=== PATIENT | female | born 1945 | race Caucasian/White ===

== ENCOUNTER → 2018-09-29 | Outpatient (CLI) | payer MEDICARE ==
[2014-11-23 10:45] VITALS: BP 150/80
[~2018-09-29] MED LIST: GARL1CAP3 PO; GLIM2TAB2 PO; HYDR200T71 PO; LEVO175T5 PO; LOSA100T14 PO; MAGN100T3 PO; OMEG500C PO
--- NOTE | 2018-09-29 11:55 | KCIC ---
MR thoracic spine without contrast September 29, 2018 INDICATION: Dorsal bulge. Mid to lower back pain asymmetric to the left for several months. COMPARISON: None available TECHNIQUE: Multiplanar, multisequence MR imaging of the thoracic spine is performed without intravenous contrast. FINDINGS: There is mild exaggerated kyphosis of the thoracic spine. Schmorl's nodes are identified involving the endplates of T5, T6, T7, T8, T9, T10 and T11. There is mild anterior wedging of T6 with less than 15 percent height loss. Minimal anterior wedging of T8. 15 percent height loss. No significant height loss at additional levels. Moderate multilevel disc height loss is identified. No acute fracture is present. Marrow signal intensity is normal. At T6-T7, there is a central disc protrusion resulting in mild spinal canal stenosis. No significant neuroforaminal stenosis. At T7-T8 there is a right central disc protrusion resulting in mild spinal canal stenosis. At T8-T9 there is a central disc protrusion resulting in mild spinal canal stenosis. At T11-T12 there is a right central disc extrusion resulting in mild spinal canal stenosis and mild right neuroforaminal stenosis. There is mild to moderate multilevel facet arthropathy. Descending thoracic aorta is normal in caliber. Thoracic esophagus appears normal. No significant pulmonary mass. Visualized portions of the upper abdomen appear normal. IMPRESSION: Exaggerated kyphosis of the thoracic spine with moderate multilevel degenerative disc disease, as described in detail above. Electronically signed by: Rachael Powers MD (09/29/2018 11:51 AM) [facility]-KCIC1
== END | disposition home or self-care (01) ==
LOC: KCIC MRI 10:48
PROVIDERS: ATTEND Nurse Practitioner Family
DX: M51.34 Other intervertebral disc degeneration, thoracic region (principal); M40.204 Unspecified kyphosis, thoracic region; M48.04 Spinal stenosis, thoracic region
CPT/HCPCS: 72146

== ENCOUNTER 2019-08-07 09:38 | Inpatient (IN) | payer MEDICARE ==
[~2019-08-07] VITALS: Ht 167.6 cm; Wt 86.4 kg
[~2019-08-07 09:38] MED LIST changes: +ALEN70TA6 PO; +AMLO5TAB10 PO; +ASPI-630 PO; +CHOL10003 PO; +CYAN-25 PO; +FERR325T14 PO; +FURO20TA3 PO; -GLIM2TAB2 PO; +GLIM2TAB3 PO; +INSU200I4 SQ; +LEVO150T5 PO; +LINA5TAB PO; +PANT20TA2 PO; +PRAV40TA2 PO
[2019-08-07 11:11] VITALS: BP 129/82
[2019-08-07 12:27] LABS: BASO % 1 % (0-3); EOS # 0.1 x10^3/uL (0.0-0.7); EOS % 2 % (0-3); HEMATOCRIT 31.1 % (36.0-47.0); HEMOGLOBIN 10.1 g/dL (12.0-15.5); LYMPH # 0.8 x10^3/uL (1.0-4.8); LYMPH % 19 % (24-48); MEAN CORPUSCULAR HEMOGLOBIN 32 pg (25-35); MEAN CORPUSCULAR HGB CONC 32 g/dL (31-37); MEAN CORPUSCULAR VOLUME 97 fL (79-100); MONO # 0.3 x10^3/uL (0.0-1.1); MONO % 8 % (0-9); NEUT % 72 % (31-73); PLATELET COUNT 76 x10^3/uL (140-400); WHITE BLOOD COUNT 4.2 x10^3/uL (4.0-11.0)
[2019-08-07] MEDS ORDERED: OXYB10TA2 PO (12:31)
[2019-08-07 12:34] LABS: PROTHROMBIN TIME PATIENT 14.6 SEC (11.7-14.0)
[2019-08-07 12:46] LABS: ALBUMIN 2.8 g/dL (3.4-5.0); ALBUMIN/GLOBULIN RATIO 0.7 (1.0-1.7); CALCIUM 8.3 mg/dL (8.5-10.1); GFR 24.4; POTASSIUM 3.8 mmol/L (3.5-5.1); TOTAL BILIRUBIN 0.5 mg/dL (0.2-1.0); TOTAL PROTEIN 6.7 g/dL (6.4-8.2)
--- NOTE | 2019-08-07 12:54 | PDOC1 ---
History and Physical Date of Admission Date of Admission DATE: 08/07/19 TIME: 12:51 Source Source: Chart review, Patient History of Present Illness History of Present Illness Ms. Chavez, is a 74 yo female transferred from [place] today, had been admitted secondary to cough, shortness of breath, and dizziness. Longstanding complaints, but has worsened, Follows with Dr. Somers of cardiology, diastolic CHF and CAD, . Patient has been treated on an outpatient basis with steroids, breathing treatments, and antibiotics, without any significant improvement. C ontinue to have dyspnea with minimal exertion. This week, hasn't been feeling well and has been increasingly weak. No known fevers, but was febrile upon arrival. Yesterday, had episode of aching in her left chest. Radiated down and around to her abdomen. [place] slightly nauseated and was dizzy. No diaphoresis or palpitations. No LE edema. Past Medical History Past Medical History CHF, coronary stent placement for coronary artery disease, hypercholesterolemia, hypertension, COPD, asthma, GERD, abdominal surgery, appendectomy, nausea, hysterectomy, incontinence, hypothyroidism, history of smoking exposure for 15 years, chronic anemia, insomnia. Cardiovascular: CAD, CHF, HTN, Hyperlipidemia GI: GERD Musculoskeletal: Osteoarthritis Renal/: UTI Endocrine: Diabetes, Hypothyroidism Past Surgical History Past Surgical History: Appendectomy, Cholecystectomy, Tonsillectomy, Hysterectomy, Other Family History Family History FAMILY HISTORY: Father was a smoker and had CHF and father also had a history of alcoholism. Mother had cerebral hemorrhage as well as a brother who has of unknown causes. Family History: No Significant Social History ALCOHOL: none Drugs: None Current Medications Current Medications Active Scripts Active Reported Oxybutynin Chloride Er (Oxybutynin Chloride) 10 Mg Tab.er.24 10 Mg PO DAILY Pravastatin Sodium 40 Mg Tablet 1 Tab PO QHS Protonix (Pantoprazole Sodium) 20 Mg Tablet.dr 40 Mg PO DAILY Tradjenta (Linagliptin) 5 Mg Tablet 5 Mg PO DAILY Levothyroxine Sodium 150 Mcg Tablet 150 Mcg PO DAILYAC Tresiba Flextouch U-200 (Insulin Degludec) 200 Unit/1 Ml Insuln.pen 20 Unit SQ HS Furosemide 20 Mg Tablet 1 Tab PO DAILY Vitamin D3 (Cholecalciferol (Vitamin D3)) 1,000 Unit Tablet 3,000 Unit PO DAILY Aspirin 81 Mg Tab.chew 1 Tab PO DAILY Alendronate Sodium 70 Mg Tablet 1 Tab PO WEEKLY Losartan Potassium 100 Mg Tablet 100 Mg PO DAILY Allergies Allergies: Coded Allergies: Sulfa (Sulfonamide Antibiotics) (Verified Allergy, Intermediate, rash, 05/21/19) niacin (Verified Allergy, Intermediate, 05/21/19) ROS General: No: Chills, Night Sweats, Fatigue, Malaise, Appetite, Other PSYCHOLOGICAL ROS: YES: Sleep disturbances; No: Anxiety, Behavioral Disorder, Concentration difficultie, Decreased libido, Depression, Disorientation, Hallucinations, Hostility, Irritablity, Suicidal ideation, Other Respiratory: YES: Shortness of breath, SOB with excertion; No: Cough, Hemoptysis, Orthopnea, Pleuritic Pain, Sputum Changes, Stridor, Tachypnea, Wheezing, Other Cardiovascular: yes Chest Pain; No Palpitations, No Orthopnea, No Paroxysmal Noc. Dyspnea, No Edema, No Lt Headedness, No Other Gastrointestinal: No Nausea, No Vomiting, No Abdominal Pain, No Diarrhea, No Constipation, No Melena, No Hematochezia, No Other Genitourinary: No Dysuria, No Frequency, No Incontinence, No Hematuria, No Retention, No Discharge, No Urgency, No Pain, No Flank Pain, No Other, No , No , No , No , No , No , No Musculoskeletal: Yes Joint Stiffness; No Gait Disturbance, No Joint Pain, No Joint Swelling, No Muscle Pain, No Muscular Weakness, No Pain In:, No Swelling In:, No Other Neurological: No Behavorial Changes, No Bowel/Bladder ControlChng, No Confusion, No Dizziness, No Gait Disturbance, No Headaches, No Impaired Coord/balance, No Memory Loss, No Numbness/Tingling, No Seizures, No Speech Problems, No Tremors, No Visual Changes, No Weakness, No Other Skin: No Dry Skin, No Eczema, No Hair Changes, No Lumps, No Mole Changes, No Mottling, No Nail Changes, No Pruritus, No Rash, No Skin Lesion Changes, No Other, No Acne Physical Exam General: Alert, Cooperative HEENT: PERRLA Lungs: Clear to auscultation Heart: S1S2, no thrills Abdomen: Normal bowel sounds, Soft Rectal Exam: not examined Extremities: No clubbing, No edema Skin: No rashes Neuro: Normal speech Vitals Vitals Vital Signs Date Time Temp Pulse Resp B/P (MAP) Pulse Ox O2 Delivery O2 Flow Rate FiO2 08/07/19 11:11 98.4 84 18 129/82 (98) 98 Room Air 98.4 Labs Labs Laboratory Tests Test 08/07/19 11:28 08/07/19 12:00 Glucose (Fingerstick) 180 mg/dL (70-99) White Blood Count 4.2 x10^3/uL (4.0-11.0) Red Blood Count 3.20 x10^6/uL (3.50-5.40) Hemoglobin 10.1 g/dL (12.0-15.5) Hematocrit 31.1 % (36.0-47.0) Mean Corpuscular Volume 97 fL (79-100) Mean Corpuscular Hemoglobin 32 pg (25-35) Mean Corpuscular Hemoglobin Concent 32 g/dL (31-37) Red Cell Distribution Width 16.0 % (11.5-14.5) Platelet Count 76 x10^3/uL (140-400) Neutrophils (%) (Auto) 72 % (31-73) Lymphocytes (%) (Auto) 19 % (24-48) Monocytes (%) (Auto) 8 % (0-9) Eosinophils (%) (Auto) 2 % (0-3) Basophils (%) (Auto) 1 % (0-3) Neutrophils # (Auto) 3.0 x10^3/uL (1.8-7.7) Lymphocytes # (Auto) 0.8 x10^3/uL (1.0-4.8) Monocytes # (Auto) 0.3 x10^3/uL (0.0-1.1) Eosinophils # (Auto) 0.1 x10^3/uL (0.0-0.7) Basophils # (Auto) 0.0 x10^3/uL (0.0-0.2) Prothrombin Time 14.6 SEC (11.7-14.0) Prothromb Time International Ratio 1.2 (0.8-1.1) Sodium Level 140 mmol/L (136-145) Potassium Level 3.8 mmol/L (3.5-5.1) Chloride Level 103 mmol/L (98-107) Carbon Dioxide Level 27 mmol/L (21-32) Anion Gap 10 (6-14) Blood Urea Nitrogen 46 mg/dL (7-20) Creatinine 2.0 mg/dL (0.6-1.0) Estimated GFR (Cockcroft-Gault) 24.4 BUN/Creatinine Ratio 23 (6-20) Glucose Level 186 mg/dL (70-99) Calcium Level 8.3 mg/dL (8.5-10.1) Total Bilirubin 0.5 mg/dL (0.2-1.0) Aspartate Amino Transf (AST/SGOT) 36 U/L (15-37) Alanine Aminotransferase (ALT/SGPT) 15 U/L (14-59) Alkaline Phosphatase 85 U/L (46-116) Total Protein 6.7 g/dL (6.4-8.2) Albumin 2.8 g/dL (3.4-5.0) Albumin/Globulin Ratio 0.7 (1.0-1.7) Laboratory Tests Test 08/07/19 11:28 08/07/19 12:00 Glucose (Fingerstick) 180 mg/dL (70-99) White Blood Count 4.2 x10^3/uL (4.0-11.0) Red Blood Count 3.20 x10^6/uL (3.50-5.40) Hemoglobin 10.1 g/dL (12.0-15.5) Hematocrit 31.1 % (36.0-47.0) Mean Corpuscular Volume 97 fL (79-100) Mean Corpuscular Hemoglobin 32 pg (25-35) Mean Corpuscular Hemoglobin Concent 32 g/dL (31-37) Red Cell Distribution Width 16.0 % (11.5-14.5) Platelet Count 76 x10^3/uL (140-400) Neutrophils (%) (Auto) 72 % (31-73) Lymphocytes (%) (Auto) 19 % (24-48) Monocytes (%) (Auto) 8 % (0-9) Eosinophils (%) (Auto) 2 % (0-3) Basophils (%) (Auto) 1 % (0-3) Neutrophils # (Auto) 3.0 x10^3/uL (1.8-7.7) Lymphocytes # (Auto) 0.8 x10^3/uL (1.0-4.8) Monocytes # (Auto) 0.3 x10^3/uL (0.0-1.1) Eosinophils # (Auto) 0.1 x10^3/uL (0.0-0.7) Basophils # (Auto) 0.0 x10^3/uL (0.0-0.2) Prothrombin Time 14.6 SEC (11.7-14.0) Prothromb Time International Ratio 1.2 (0.8-1.1) Sodium Level 140 mmol/L (136-145) Potassium Level 3.8 mmol/L (3.5-5.1) Chloride Level 103 mmol/L (98-107) Carbon Dioxide Level 27 mmol/L (21-32) Anion Gap 10 (6-14) Blood Urea Nitrogen 46 mg/dL (7-20) Creatinine 2.0 mg/dL (0.6-1.0) Estimated GFR (Cockcroft-Gault) 24.4 BUN/Creatinine Ratio 23 (6-20) Glucose Level 186 mg/dL (70-99) Calcium Level 8.3 mg/dL (8.5-10.1) Total Bilirubin 0.5 mg/dL (0.2-1.0) Aspartate Amino Transf (AST/SGOT) 36 U/L (15-37) Alanine Aminotransferase (ALT/SGPT) 15 U/L (14-59) Alkaline Phosphatase 85 U/L (46-116) Total Protein 6.7 g/dL (6.4-8.2) Albumin 2.8 g/dL (3.4-5.0) Albumin/Globulin Ratio 0.7 (1.0-1.7) VTE Prophylaxis Ordered VTE Prophylaxis Devices: No VTE Pharmacological Prophylaxi: Yes Assessment/Plan Assessment/Plan UTI, has been on vanc/zosyn at [facility], try to taper COPD chest pain and dyspnea, anginal, CV eval, LHC today SENTHIL BAILEY MD Aug 07, 2019 12:54
[2019-08-07] MEDS ORDERED: IV NORMAL SALINE 1000ML BAG 1,000 ML IV ONE (13:00)
[2019-08-07] MEDS ORDERED: PIP/TAZO PER PHARMACY MC PRN (13:15)
[2019-08-07] MEDS ORDERED: IPRATRPIUM/ALBUTEROL 0.5/2.5MG 3 ML NEBU. NEB ONE (13:30)
--- NOTE | 2019-08-07 14:25 | PDOC2 ---
CONSULT Date of Consult Date of Consult DATE: 08/07/19 TIME: 14:12 Reason for Consult Reason for Consult: Renal Insufficiency, came from [place], scheduled for [facility] Source Source: Chart review, Patient History of Present Illness Reason for Visit: Pt is a 74 yo C female transferred from [place] today, had been admitted secondary to cough, shortness of breath, and dizziness. Longstanding complaints, but has worsened, Follows with Dr. Somers of cardiology, diastolic CHF and CAD, . Patient has been treated on an outpatient basis with steroids, breathing treatments, and antibiotics, without any significant improvement. C continue to have dyspnea with minimal exertion. This week, hasn't been feeling well and has been increasingly weak. No known fevers, but was febrile upon arrival. Yesterday, had episode of aching in her left chest. Radiated down and around to her abdomen. [place] slightly nauseated and was dizzy. No diaphoresis or palpitations. No LE edema. States she has recurrent Kidney infection, most recent approx 1 week back- treated with Abx by Dr. San . Still c/o mild dysuria. Good uop . Denies N SAID use/ States not aware of CKD Past Medical History Cardiovascular: CAD, CHF, HTN, Hyperlipidemia GI: GERD Musculoskeletal: Osteoarthritis Renal/: UTI Endocrine: Diabetes, Hypothyroidism Past Surgical History Past Surgical History: Appendectomy, Cholecystectomy, Tonsillectomy, Hysterectomy, Other Family History Family History: No Significant Social History ALCOHOL: none Drugs: None Lives: with Family Current Medications Current Medications Current Medications Aspirin (Children'S Aspirin) 81 mg DAILY PO ; Start 08/08/19 at 09:00 Vitamin D (Vitamin D3) 3,000 unit DAILY PO ; Start 08/08/19 at 09:00 Furosemide (Lasix) 20 mg DAILY PO ; Start 08/08/19 at 09:00 Levothyroxine Sodium (Synthroid) 150 mcg DAILYAC PO ; Start 08/08/19 at 07:30 Linagliptin (Tradjenta) 5 mg DAILY PO ; Start 08/08/19 at 09:00 Non-Formulary Medication (Alendronate Sodium ) 1 tab WEEKLY PO ; Start 08/14/19 at 09:00; Status UNV Insulin Glargine (Lantus Syringe) 20 unit QHS SQ ; Start 08/07/19 at 21:00 Losartan Potassium (Cozaar) 100 mg DAILY PO ; Start 08/08/19 at 09:00 Oxybutynin Chloride (Ditropan) 5 mg BID PO ; Start 08/07/19 at 21:00 Pantoprazole Sodium (Protonix) 40 mg DAILYAC PO ; Start 08/08/19 at 07:30 Atorvastatin Calcium (Lipitor) 10 mg QHS PO ; Start 08/07/19 at 21:00 Sodium Chloride 1,000 ml @ 100 mls/hr 1X ONCE IV Last administered on 08/07/19at 13:21; Start 08/07/19 at 13:00; Stop 08/07/19 at 22:59 Piperacillin Sod/ Tazobactam Sod (Zosyn Per Pharmacy) 1 each PRN DAILY PRN MC SEE COMMENTS; Start 08/07/19 at 13:15 Enoxaparin Sodium (Lovenox Per Pharmacy Prophylaxis Dosing) 1 each PRN DAILY PRN MC SEE COMMENTS; Start 08/07/19 at 13:15 Guaifenesin (Robitussin Dm) 10 ml PRN Q6HRS PRN PO COUGH; Start 08/07/19 at 13:30 Throat Lozenges (Cepacol Sore Throat Lozenge) 1 sylvia PRN Q2HRS PRN PO SORE THROAT; Start 08/07/19 at 13:30 Albuterol/ Ipratropium (Duoneb) 3 ml 1X ONCE NEB Last administered on 08/07/19at 13:30; Start 08/07/19 at 13:30; Stop 08/07/19 at 13:32; Status DC Albuterol/ Ipratropium (Duoneb) 3 ml RTQID NEB ; Start 08/07/19 at 16:00 Influenza Virus Vaccine Quadrival (Afluria Quad 2019-20 (3yr Up) Syringe) 0.5 ml ONCE ONCE VAX IM ; Start 08/07/19 at 21:00; Stop 08/07/19 at 21:01 Enoxaparin Sodium (Lovenox 30mg Syringe) 30 mg Q24H SQ ; Start 08/07/19 at 14:00 Piperacillin Sod/ Tazobactam Sod 2.25 gm/Sodium Chloride 50 ml @ 100 mls/hr Q6HRS IV ; Start 08/07/19 at 14:00 Active Scripts Active Reported Oxybutynin Chloride Er (Oxybutynin Chloride) 10 Mg Tab.er.24 10 Mg PO DAILY Pravastatin Sodium 40 Mg Tablet 1 Tab PO QHS Protonix (Pantoprazole Sodium) 20 Mg Tablet.dr 40 Mg PO DAILY Tradjenta (Linagliptin) 5 Mg Tablet 5 Mg PO DAILY Levothyroxine Sodium 150 Mcg Tablet 150 Mcg PO DAILYAC Tresiba Flextouch U-200 (Insulin Degludec) 200 Unit/1 Ml Insuln.pen 20 Unit SQ HS Furosemide 20 Mg Tablet 1 Tab PO DAILY Vitamin D3 (Cholecalciferol (Vitamin D3)) 1,000 Unit Tablet 3,000 Unit PO DAILY Aspirin 81 Mg Tab.chew 1 Tab PO DAILY Alendronate Sodium 70 Mg Tablet 1 Tab PO WEEKLY Losartan Potassium 100 Mg Tablet 100 Mg PO DAILY Allergies Allergies: Coded Allergies: Sulfa (Sulfonamide Antibiotics) (Verified Allergy, Intermediate, rash, 05/21/19) niacin (Verified Allergy, Intermediate, 05/21/19) ROS Review of System Per HPI Physical Exam Physical Exam General: NAD HEENT: OM moist Neck Supple Lungs: Clear to auscultation, Non labored Heart: S1S2, Abdomen: Normal bowel sounds, Extremities: No edema Skin: No rashes Neuro: grossly normal No long Vital Signs Vital Signs Date Time Temp Pulse Resp B/P (MAP) Pulse Ox O2 Delivery O2 Flow Rate FiO2 08/07/19 13:55 Room Air 08/07/19 11:11 98.4 84 18 129/82 (98) 98 98.4 Assessment & Plan THOMAS--Vasomotor E-Lytes and acid base stable If Non emergent recommend LHC after THOMAS resolves- risk and benefit per cardiology SHERI prophylaxis with IVF 1ml/kg 12 hrs before and post procedure , Hold Lasix and if Hypotensive, Hold ARb Discussed with Cardiology CKD stage 3 Baseline Cr in 2018 1.3 Cr 1.5 -1.7( [place] records ) , doesnt seen nephrology UTI- has been on vanc/zosyn at [facility], Hx of recurrent UTI Per Primary HTN- BP at goal, On losartan and Diuretics DM - Per primary COPD- currently stable Chest pain and dyspnea - Card planning [facility] Discussed CKD, related labs and rosk of SHERI with patient Labs Labs Laboratory Tests Test 08/07/19 11:28 08/07/19 12:00 Glucose (Fingerstick) 180 mg/dL (70-99) White Blood Count 4.2 x10^3/uL (4.0-11.0) Red Blood Count 3.20 x10^6/uL (3.50-5.40) Hemoglobin 10.1 g/dL (12.0-15.5) Hematocrit 31.1 % (36.0-47.0) Mean Corpuscular Volume 97 fL (79-100) Mean Corpuscular Hemoglobin 32 pg (25-35) Mean Corpuscular Hemoglobin Concent 32 g/dL (31-37) Red Cell Distribution Width 16.0 % (11.5-14.5) Platelet Count 76 x10^3/uL (140-400) Neutrophils (%) (Auto) 72 % (31-73) Lymphocytes (%) (Auto) 19 % (24-48) Monocytes (%) (Auto) 8 % (0-9) Eosinophils (%) (Auto) 2 % (0-3) Basophils (%) (Auto) 1 % (0-3) Neutrophils # (Auto) 3.0 x10^3/uL (1.8-7.7) Lymphocytes # (Auto) 0.8 x10^3/uL (1.0-4.8) Monocytes # (Auto) 0.3 x10^3/uL (0.0-1.1) Eosinophils # (Auto) 0.1 x10^3/uL (0.0-0.7) Basophils # (Auto) 0.0 x10^3/uL (0.0-0.2) Prothrombin Time 14.6 SEC (11.7-14.0) Prothromb Time International Ratio 1.2 (0.8-1.1) Sodium Level 140 mmol/L (136-145) Potassium Level 3.8 mmol/L (3.5-5.1) Chloride Level 103 mmol/L (98-107) Carbon Dioxide Level 27 mmol/L (21-32) Anion Gap 10 (6-14) Blood Urea Nitrogen 46 mg/dL (7-20) Creatinine 2.0 mg/dL (0.6-1.0) Estimated GFR (Cockcroft-Gault) 24.4 BUN/Creatinine Ratio 23 (6-20) Glucose Level 186 mg/dL (70-99) Calcium Level 8.3 mg/dL (8.5-10.1) Total Bilirubin 0.5 mg/dL (0.2-1.0) Aspartate Amino Transf (AST/SGOT) 36 U/L (15-37) Alanine Aminotransferase (ALT/SGPT) 15 U/L (14-59) Alkaline Phosphatase 85 U/L (46-116) Total Protein 6.7 g/dL (6.4-8.2) Albumin 2.8 g/dL (3.4-5.0) Albumin/Globulin Ratio 0.7 (1.0-1.7) Laboratory Tests Test 08/07/19 11:28 08/07/19 12:00 Glucose (Fingerstick) 180 mg/dL (70-99) White Blood Count 4.2 x10^3/uL (4.0-11.0) Red Blood Count 3.20 x10^6/uL (3.50-5.40) Hemoglobin 10.1 g/dL (12.0-15.5) Hematocrit 31.1 % (36.0-47.0) Mean Corpuscular Volume 97 fL (79-100) Mean Corpuscular Hemoglobin 32 pg (25-35) Mean Corpuscular Hemoglobin Concent 32 g/dL (31-37) Red Cell Distribution Width 16.0 % (11.5-14.5) Platelet Count 76 x10^3/uL (140-400) Neutrophils (%) (Auto) 72 % (31-73) Lymphocytes (%) (Auto) 19 % (24-48) Monocytes (%) (Auto) 8 % (0-9) Eosinophils (%) (Auto) 2 % (0-3) Basophils (%) (Auto) 1 % (0-3) Neutrophils # (Auto) 3.0 x10^3/uL (1.8-7.7) Lymphocytes # (Auto) 0.8 x10^3/uL (1.0-4.8) Monocytes # (Auto) 0.3 x10^3/uL (0.0-1.1) Eosinophils # (Auto) 0.1 x10^3/uL (0.0-0.7) Basophils # (Auto) 0.0 x10^3/uL (0.0-0.2) Prothrombin Time 14.6 SEC (11.7-14.0) Prothromb Time International Ratio 1.2 (0.8-1.1) Sodium Level 140 mmol/L (136-145) Potassium Level 3.8 mmol/L (3.5-5.1) Chloride Level 103 mmol/L (98-107) Carbon Dioxide Level 27 mmol/L (21-32) Anion Gap 10 (6-14) Blood Urea Nitrogen 46 mg/dL (7-20) Creatinine 2.0 mg/dL (0.6-1.0) Estimated GFR (Cockcroft-Gault) 24.4 BUN/Creatinine Ratio 23 (6-20) Glucose Level 186 mg/dL (70-99) Calcium Level 8.3 mg/dL (8.5-10.1) Total Bilirubin 0.5 mg/dL (0.2-1.0) Aspartate Amino Transf (AST/SGOT) 36 U/L (15-37) Alanine Aminotransferase (ALT/SGPT) 15 U/L (14-59) Alkaline Phosphatase 85 U/L (46-116) Total Protein 6.7 g/dL (6.4-8.2) Albumin 2.8 g/dL (3.4-5.0) Albumin/Globulin Ratio 0.7 (1.0-1.7) Review All relevant outside records, renal labs, imaging studies, telemetry/EKG's were reviewed. SULTANA LE MD Aug 07, 2019 14:25
[2019-08-07 14:29] VITALS: BP 116/56
--- NOTE | 2019-08-07 14:42 | NUR ---
Dr. Patel is out of town until 08/17 with No coverage.
[2019-08-07] MEDS: ENOXAPARIN 30 MG/0.3 ML SYRINGE. SQ SCH (15:34)
[2019-08-07] MEDS: PIPERACILLIN/TAZOBACTAM 2.25 GM in IV NORMAL SALINE 50ML 50 ML IV SCH ×3 (15:35→23:59)
[2019-08-07] MEDS: IPRATRPIUM/ALBUTEROL 0.5/2.5MG 3 ML NEBU. NEB SCH ×2 (15:41→20:08)
--- NOTE | 2019-08-07 15:41 | RAD ---
PORTABLE CHEST 1V History: Cough. Dyspnea Comparison: August 05, 2019 Findings: No consolidation or pleural effusion. Normal heart size. Low lung volumes. Impression: 1. No acute cardiopulmonary process. Electronically signed by: Vikas Prieto DO (08/07/2019 3:38 PM) [facility]
--- NOTE | 2019-08-07 16:07 | PDOC ---
PULMONARY PROGRESS NOTES Vitals Vital Signs Date Time Temp Pulse Resp B/P (MAP) Pulse Ox O2 Delivery O2 Flow Rate FiO2 08/07/19 15:41 94 Room Air 08/07/19 14:29 98.7 90 18 116/56 (76) 98.7 Labs Laboratory Tests Test 08/07/19 11:28 08/07/19 12:00 Glucose (Fingerstick) 180 mg/dL (70-99) White Blood Count 4.2 x10^3/uL (4.0-11.0) Red Blood Count 3.20 x10^6/uL (3.50-5.40) Hemoglobin 10.1 g/dL (12.0-15.5) Hematocrit 31.1 % (36.0-47.0) Mean Corpuscular Volume 97 fL (79-100) Mean Corpuscular Hemoglobin 32 pg (25-35) Mean Corpuscular Hemoglobin Concent 32 g/dL (31-37) Red Cell Distribution Width 16.0 % (11.5-14.5) Platelet Count 76 x10^3/uL (140-400) Neutrophils (%) (Auto) 72 % (31-73) Lymphocytes (%) (Auto) 19 % (24-48) Monocytes (%) (Auto) 8 % (0-9) Eosinophils (%) (Auto) 2 % (0-3) Basophils (%) (Auto) 1 % (0-3) Neutrophils # (Auto) 3.0 x10^3/uL (1.8-7.7) Lymphocytes # (Auto) 0.8 x10^3/uL (1.0-4.8) Monocytes # (Auto) 0.3 x10^3/uL (0.0-1.1) Eosinophils # (Auto) 0.1 x10^3/uL (0.0-0.7) Basophils # (Auto) 0.0 x10^3/uL (0.0-0.2) Prothrombin Time 14.6 SEC (11.7-14.0) Prothromb Time International Ratio 1.2 (0.8-1.1) Sodium Level 140 mmol/L (136-145) Potassium Level 3.8 mmol/L (3.5-5.1) Chloride Level 103 mmol/L (98-107) Carbon Dioxide Level 27 mmol/L (21-32) Anion Gap 10 (6-14) Blood Urea Nitrogen 46 mg/dL (7-20) Creatinine 2.0 mg/dL (0.6-1.0) Estimated GFR (Cockcroft-Gault) 24.4 BUN/Creatinine Ratio 23 (6-20) Glucose Level 186 mg/dL (70-99) Calcium Level 8.3 mg/dL (8.5-10.1) Total Bilirubin 0.5 mg/dL (0.2-1.0) Aspartate Amino Transf (AST/SGOT) 36 U/L (15-37) Alanine Aminotransferase (ALT/SGPT) 15 U/L (14-59) Alkaline Phosphatase 85 U/L (46-116) Total Protein 6.7 g/dL (6.4-8.2) Albumin 2.8 g/dL (3.4-5.0) Albumin/Globulin Ratio 0.7 (1.0-1.7) Laboratory Tests Test 08/07/19 11:28 08/07/19 12:00 Glucose (Fingerstick) 180 mg/dL (70-99) White Blood Count 4.2 x10^3/uL (4.0-11.0) Red Blood Count 3.20 x10^6/uL (3.50-5.40) Hemoglobin 10.1 g/dL (12.0-15.5) Hematocrit 31.1 % (36.0-47.0) Mean Corpuscular Volume 97 fL (79-100) Mean Corpuscular Hemoglobin 32 pg (25-35) Mean Corpuscular Hemoglobin Concent 32 g/dL (31-37) Red Cell Distribution Width 16.0 % (11.5-14.5) Platelet Count 76 x10^3/uL (140-400) Neutrophils (%) (Auto) 72 % (31-73) Lymphocytes (%) (Auto) 19 % (24-48) Monocytes (%) (Auto) 8 % (0-9) Eosinophils (%) (Auto) 2 % (0-3) Basophils (%) (Auto) 1 % (0-3) Neutrophils # (Auto) 3.0 x10^3/uL (1.8-7.7) Lymphocytes # (Auto) 0.8 x10^3/uL (1.0-4.8) Monocytes # (Auto) 0.3 x10^3/uL (0.0-1.1) Eosinophils # (Auto) 0.1 x10^3/uL (0.0-0.7) Basophils # (Auto) 0.0 x10^3/uL (0.0-0.2) Prothrombin Time 14.6 SEC (11.7-14.0) Prothromb Time International Ratio 1.2 (0.8-1.1) Sodium Level 140 mmol/L (136-145) Potassium Level 3.8 mmol/L (3.5-5.1) Chloride Level 103 mmol/L (98-107) Carbon Dioxide Level 27 mmol/L (21-32) Anion Gap 10 (6-14) Blood Urea Nitrogen 46 mg/dL (7-20) Creatinine 2.0 mg/dL (0.6-1.0) Estimated GFR (Cockcroft-Gault) 24.4 BUN/Creatinine Ratio 23 (6-20) Glucose Level 186 mg/dL (70-99) Calcium Level 8.3 mg/dL (8.5-10.1) Total Bilirubin 0.5 mg/dL (0.2-1.0) Aspartate Amino Transf (AST/SGOT) 36 U/L (15-37) Alanine Aminotransferase (ALT/SGPT) 15 U/L (14-59) Alkaline Phosphatase 85 U/L (46-116) Total Protein 6.7 g/dL (6.4-8.2) Albumin 2.8 g/dL (3.4-5.0) Albumin/Globulin Ratio 0.7 (1.0-1.7) Medications Active Scripts Medications Dose Route/Sig Max Daily Dose Days Date Category Oxybutynin Chloride Er (Oxybutynin Chloride) 10 Mg Tab.er.24 10 Mg PO DAILY 08/07/19 Reported Pravastatin Sodium 40 Mg Tablet 1 Tab PO QHS 10/17/18 Reported Protonix (Pantoprazole Sodium) 20 Mg Tablet.dr 40 Mg PO DAILY 10/17/18 Reported Tradjenta (Linagliptin) 5 Mg Tablet 5 Mg PO DAILY 10/17/18 Reported Levothyroxine Sodium 150 Mcg Tablet 150 Mcg PO DAILYAC 10/17/18 Reported Tresiba Flextouch U-200 (Insulin Degludec) 200 Unit/1 Ml Insuln.pen 20 Unit SQ HS 10/17/18 Reported Furosemide 20 Mg Tablet 1 Tab PO DAILY 10/17/18 Reported Vitamin D3 (Cholecalciferol (Vitamin D3)) 1,000 Unit Tablet 3,000 Unit PO DAILY 10/17/18 Reported Aspirin 81 Mg Tab.chew 1 Tab PO DAILY 10/17/18 Reported Alendronate Sodium 70 Mg Tablet 1 Tab PO WEEKLY 10/17/18 Reported Losartan Potassium 100 Mg Tablet 100 Mg PO DAILY 11/11/14 Reported Impression . NOTE DICTATED AECOPD/ASTHMA ACUTE CHF THANKS CARLITOS BALLARD MD Aug 07, 2019 16:07
--- NOTE | 2019-08-07 16:35 | NUR ---
Wound Care Wound care consult for bilateral thigh wounds. Pt has dry crusty scabs with white hard deposits present. Cleansed wound, applied foam dressings for protection. Will discuss origin of wounds with Dr Mayo. No other wounds noted, WC will continue to follow for possible changes.
[2019-08-07 19:05] VITALS: BP 109/60
[2019-08-07] MEDS: ATORVASTATIN CALCIUM 10 MG TABLET. PO SCH (19:59)
[2019-08-07] MEDS: OXYBUTYNIN CHLORIDE 5 MG TABLET PO SCH (19:59)
[2019-08-07] MEDS: ASCORBIC ACID 500 MG TABLET PO SCH (19:59)
[2019-08-07] MEDS: MULTIVITAMIN I-VITE TABLET. PO SCH (19:59)
[2019-08-07] MEDS: guaiFENesin DM 200MG/20MG 10 ML SYRUP PO PRN (20:02)
[2019-08-07] MEDS: BENZOCAINE/MENTHOL LOZENGE. PO PRN (20:02)
--- NOTE | 2019-08-07 20:25 | NUR ---
Tatyana changed her mind and refused the Flu vaccine. This would be her 1st time getting one. She is scared of getting the Flu if she takes it. I educated her and she still refused the Flu vaccine.
[2019-08-07] MEDS: INSULIN GLARGINE SYRINGE. SQ SCH (20:43)
[2019-08-07] MEDS ORDERED: FLU VAX QS 2019-20 (36MOS+)/PF 0.5 ML SYRINGE. VAX IM ONE (21:00)
[2019-08-07 23:00] VITALS: BP 114/55
--- NOTE | 2019-08-08 02:43 | CONS ---
DATE OF CONSULTATION: 08/07/2019 ATTENDING PHYSICIAN: Dr. Nikki Nelson. REASON FOR CONSULTATION: The patient seen in pulmonary consultation at the request of Dr. Nelson for increasing shortness of air. HISTORY OF PRESENT ILLNESS: The patient is a 74-year-old female that was admitted at [facility]. She was not feeling well. She had increasing weakness, unable to walk, was short of breath. She was very short of breath at times, not able to complete full sentences. The patient was admitted to [facility]. She was transferred today to [facility] for advance care. She has underlying diastolic heart failure, coronary artery disease. Her x-ray reveals some vascular congestion. She was transferred to [facility] for possibility of undergoing a cardiac catheterization. Her workup included a V/Q scan, which I reviewed revealing no evidence of unmatched perfusion defect. Chest x-ray revealed mild vascular congestion. The patient currently has a cough, mostly nonproductive. No fever, chills, or night sweats. PAST MEDICAL HISTORY: 1. Adult-onset asthma. She also smoked for a very short period of time for approximately 7 years as a teenager and a young adult. 2. Coronary artery disease with previous stent placement. 3. Hyperlipidemia. 4. Hypertension. 5. Gastroesophageal reflux. 6. Hypothyroidism. 7. Tobacco dependence, in remission. PAST SURGICAL HISTORY: Status post abdominal surgery, appendectomy, hysterectomy. FAMILY HISTORY: No family history of lung cancer. ALLERGIES: SULFA AND NIACIN. REVIEW OF SYSTEMS: CONSTITUTIONAL: No fever or chills. EYES: No change in visual acuity. HENT: No nasal congestion or sore throat. PULMONARY: As indicated above. CARDIOVASCULAR: As indicated above. GASTROINTESTINAL: No nausea, vomiting, diarrhea. GENITOURINARY: No dysuria or frequency. MUSCULOSKELETAL: No localized muscle aches or joint pain. SKIN: No new skin rashes. NEUROLOGIC: No headaches, diplopia, or blurred vision. CURRENT MEDICATIONS: List was reviewed. The patient is currently receiving Zosyn, Lovenox for DVT prophylaxis, her home medications, and furosemide. PHYSICAL EXAMINATION: VITAL SIGNS: Stable. O2 saturation currently on room air was 94%. HEENT: Eyes, the sclerae were nonicteric. NECK: Jugular venous distention was not elevated. No lymphadenopathy. CHEST: Full expansion. LUNGS: Crackles in the bases. No wheezes. CARDIOVASCULAR: Regular rate and rhythm with S1, S2, no S3. ABDOMEN: Soft, nontender, nondistended. EXTREMITIES: No clubbing, cyanosis, or edema. LABORATORY DATA: Reviewed. Chest x-ray as indicated above. V/Q scan, low probability. BUN and creatinine were elevated. IMPRESSION: 1. Progressive dyspnea secondary to acute exacerbation of chronic obstructive pulmonary disease/asthma. 2. Acute on chronic diastolic/systolic heart failure. 3. Urinary tract infection. 4. Tobacco dependence, in remission. 5. Hypertension. 6. Coronary artery disease with previous stent placement. 7. Other comorbidities as listed above. 8. Acute on chronic kidney failure. PLAN: From a pulmonary standpoint of view, the patient appears to be doing well. V/Q scan was reviewed. There were no unmatched perfusion defects, my clinical suspicion for pulmonary embolism is low. I suspect most of her dyspnea is related to weakness and heart failure. With that being said, Cardiology has been consulted. We will await their input. I do appreciate the privilege in sharing in the patient's care. CARLITOS BALLARD MD DR: AZIZA/joy JOB#: [id number] / [id number]
[2019-08-08 03:00] VITALS: BP 117/49
[2019-08-08 03:48] LABS: BASO % 1 % (0-3); EOS # 0.1 x10^3/uL (0.0-0.7); EOS % 5 % (0-3); HEMATOCRIT 27.1 % (36.0-47.0); HEMOGLOBIN 8.7 g/dL (12.0-15.5); LYMPH # 0.9 x10^3/uL (1.0-4.8); LYMPH % 29 % (24-48); MEAN CORPUSCULAR HEMOGLOBIN 32 pg (25-35); MEAN CORPUSCULAR HGB CONC 32 g/dL (31-37); MEAN CORPUSCULAR VOLUME 98 fL (79-100); MONO # 0.2 x10^3/uL (0.0-1.1); MONO % 8 % (0-9); NEUT # 1.7 x10^3/uL (1.8-7.7); NEUT % 57 % (31-73); PLATELET COUNT 76 x10^3/uL (140-400); RED BLOOD COUNT 2.76 x10^6/uL (3.50-5.40); RED CELL DISTRIBUTION WIDTH 16.2 % (11.5-14.5)
[2019-08-08 04:05] LABS: ALBUMIN 2.5 g/dL (3.4-5.0); ALBUMIN/GLOBULIN RATIO 0.8 (1.0-1.7); CREATININE 1.8 mg/dL (0.6-1.0); GFR 27.6; POTASSIUM 3.6 mmol/L (3.5-5.1); TOTAL BILIRUBIN 0.4 mg/dL (0.2-1.0); TOTAL PROTEIN 5.8 g/dL (6.4-8.2)
[2019-08-08] MEDS: PIPERACILLIN/TAZOBACTAM 2.25 GM in IV NORMAL SALINE 50ML 50 ML IV SCH ×4 (05:37→23:42)
[2019-08-08 07:14] VITALS: BP 105/52
[2019-08-08] MEDS: LEVOTHYROXINE 150 MCG TABLET PO SCH (07:31)
[2019-08-08] MEDS: PANTOPRAZOLE 40 MG TABLET.DR. PO SCH (07:31)
[2019-08-08] MEDS: IPRATRPIUM/ALBUTEROL 0.5/2.5MG 3 ML NEBU. NEB SCH ×4 (07:49→19:31)
[2019-08-08] MEDS: FUROSEMIDE 20 MG TABLET PO SCH (08:49)
[2019-08-08] MEDS: ENOXAPARIN 30 MG/0.3 ML SYRINGE. SQ SCH (08:49)
[2019-08-08] MEDS: guaiFENesin DM 200MG/20MG 10 ML SYRUP PO PRN (08:50)
[2019-08-08] MEDS: ASCORBIC ACID 500 MG TABLET PO SCH (08:50)
[2019-08-08] MEDS: ASPIRIN CHEWABLE 81 MG TABLET. PO SCH (08:50)
[2019-08-08] MEDS: CHOLECALCIFEROL (VITAMIN D3) 1,000 UNIT TABLET PO SCH (08:50)
[2019-08-08] MEDS: OXYBUTYNIN CHLORIDE 5 MG TABLET PO SCH ×2 (08:50→20:48)
[2019-08-08] MEDS: LINAGLIPTIN 5 MG TABLET PO SCH (08:50)
[2019-08-08] MEDS: BENZOCAINE/MENTHOL LOZENGE. PO PRN (08:50)
[2019-08-08] MEDS: MULTIVITAMIN I-VITE TABLET. PO SCH (08:50)
[2019-08-08] MEDS ORDERED: LOSARTAN POTASSIUM 50 MG TABLET. PO SCH (09:00)
[2019-08-08 10:31] VITALS: BP 132/61
--- NOTE | 2019-08-08 13:15 | PDOC ---
CARDIOLOGY PROGRESS NOTE SUBJECTIVE: No acute events overnight. Patient continues to have dyspnea and fatigue. Noted pulmonary evaluation. OBJECTIVE: Vital Signs/I&O: Vital Signs Date Time Temp Pulse Resp B/P (MAP) Pulse Ox O2 Delivery O2 Flow Rate FiO2 08/08/19 10:31 98.0 86 12 132/61 (84) 94 Room Air 98.0 I & O 08/07/19 08/07/19 08/08/19 15:00 23:00 07:00 Intake Total 0 ml 240 ml 220 ml Output Total 200 ml 500 ml Balance 0 ml 40 ml -280 ml Objective: In general she is fatigued. Head and neck exam is unremarkable No significant wheezing Normal heart tones Soft abdomen No significant lower extremity edema CURRENT MEDICATIONS: Current Medications Medications (Trade) Dose Ordered Sig/Daya Route PRN Reason Start Time Stop Time Status Last Admin Dose Admin Aspirin (Children'S Aspirin) 81 mg DAILY PO 08/08/19 09:00 08/08/19 08:50 Vitamin D (Vitamin D3) 3,000 unit DAILY PO 08/08/19 09:00 08/08/19 08:50 Furosemide (Lasix) 20 mg DAILY PO 08/08/19 09:00 08/08/19 08:49 Levothyroxine Sodium (Synthroid) 150 mcg DAILYAC PO 08/08/19 07:30 08/08/19 07:31 Linagliptin (Tradjenta) 5 mg DAILY PO 08/08/19 09:00 08/08/19 08:50 Insulin Glargine (Lantus Syringe) 20 unit QHS SQ 08/07/19 21:00 08/07/19 20:43 Losartan Potassium (Cozaar) 100 mg DAILY PO 08/08/19 09:00 08/08/19 08:50 Oxybutynin Chloride (Ditropan) 5 mg BID PO 08/07/19 21:00 08/08/19 08:50 Pantoprazole Sodium (Protonix) 40 mg DAILYAC PO 08/08/19 07:30 08/08/19 07:31 Atorvastatin Calcium (Lipitor) 10 mg QHS PO 08/07/19 21:00 08/07/19 19:59 Guaifenesin (Robitussin Dm) 10 ml PRN Q6HRS PRN PO COUGH 08/07/19 13:30 08/08/19 08:50 Throat Lozenges (Cepacol Sore Throat Lozenge) 1 sylvia PRN Q2HRS PRN PO SORE THROAT 08/07/19 13:30 08/08/19 08:50 Albuterol/ Ipratropium (Duoneb) 3 ml 1X ONCE NEB 08/07/19 13:30 08/07/19 13:32 DC 08/07/19 13:30 Albuterol/ Ipratropium (Duoneb) 3 ml RTQID NEB 08/07/19 16:00 08/08/19 07:49 Enoxaparin Sodium (Lovenox 30mg Syringe) 30 mg Q24H SQ 08/07/19 14:00 08/08/19 08:49 Piperacillin Sod/ Tazobactam Sod 2.25 gm/Sodium Chloride 50 ml @ 100 mls/hr Q6HRS IV 08/07/19 14:00 08/08/19 11:56 Multivitamins/ Minerals (I-Sravani) 1 tab DAILY PO 08/07/19 18:30 08/08/19 08:50 Ascorbic Acid (Vitamin C) 500 mg DAILY PO 08/07/19 18:30 08/08/19 08:50 DIAGNOSTIC TESTING: Labs reviewed. Labs: Laboratory Tests 08/08/19 03:30 Laboratory Tests Test 08/07/19 16:52 08/07/19 20:39 08/08/19 03:30 08/08/19 07:18 Glucose (Fingerstick) 210 mg/dL (70-99) H 269 mg/dL (70-99) H 136 mg/dL (70-99) H White Blood Count 3.0 x10^3/uL (4.0-11.0) L Red Blood Count 2.76 x10^6/uL (3.50-5.40) L Hemoglobin 8.7 g/dL (12.0-15.5) L Hematocrit 27.1 % (36.0-47.0) L Mean Corpuscular Volume 98 fL (79-100) Mean Corpuscular Hemoglobin 32 pg (25-35) Mean Corpuscular Hemoglobin Concent 32 g/dL (31-37) Red Cell Distribution Width 16.2 % (11.5-14.5) H Platelet Count 76 x10^3/uL (140-400) L Neutrophils (%) (Auto) 57 % (31-73) Lymphocytes (%) (Auto) 29 % (24-48) Monocytes (%) (Auto) 8 % (0-9) Eosinophils (%) (Auto) 5 % (0-3) H Basophils (%) (Auto) 1 % (0-3) Neutrophils # (Auto) 1.7 x10^3/uL (1.8-7.7) L Lymphocytes # (Auto) 0.9 x10^3/uL (1.0-4.8) L Monocytes # (Auto) 0.2 x10^3/uL (0.0-1.1) Eosinophils # (Auto) 0.1 x10^3/uL (0.0-0.7) Basophils # (Auto) 0.0 x10^3/uL (0.0-0.2) Sodium Level 142 mmol/L (136-145) Potassium Level 3.6 mmol/L (3.5-5.1) Chloride Level 109 mmol/L (98-107) H Carbon Dioxide Level 26 mmol/L (21-32) Anion Gap 7 (6-14) Blood Urea Nitrogen 42 mg/dL (7-20) H Creatinine 1.8 mg/dL (0.6-1.0) H Estimated GFR (Cockcroft-Gault) 27.6 BUN/Creatinine Ratio 23 (6-20) H Glucose Level 158 mg/dL (70-99) H Calcium Level 8.0 mg/dL (8.5-10.1) L Phosphorus Level 4.2 mg/dL (2.6-4.7) Total Bilirubin 0.4 mg/dL (0.2-1.0) Aspartate Amino Transf (AST/SGOT) 33 U/L (15-37) Alkaline Phosphatase 70 U/L (46-116) Total Protein 5.8 g/dL (6.4-8.2) L Albumin 2.5 g/dL (3.4-5.0) L Albumin/Globulin Ratio 0.8 (1.0-1.7) L Test 08/08/19 12:00 Glucose (Fingerstick) 211 mg/dL (70-99) H ASSESSMENT: 1. Exertional dyspnea suggestive of coronary etiology 2. Thrombocytopenia 3. CKD PLAN: Discussed the case with nephrology service. We are planning originally on doing her heart catheterization yesterday but due to her chronic kidney disease she has been given a fluid challenge and we will plan for a diagnostic cathete rization on Saturday. Most likely we will also proceed with PCI as needed. We will monitor her platelets as she's had a history of thrombocytopenia in the past. No acute bleeding stigmata noted. Supportive care for now. NEGRITO CACERES MD Aug 08, 2019 13:15
--- NOTE | 2019-08-08 14:29 | PDOC ---
PROGRESS NOTES Chief Complaint Chief Complaint Chest pain and dyspnea - concerning this is anginal, planned C THOMAS on CKD - nephrology consulted. Has baseline Cr 1.5-1.7, does not follow nephrology. Will give IVF and hold diuretics prior to C UTI - has been on vanc/zosyn at [facility], cont, try to taper. Will cont to work up source of fever COPD Lower extremity ulcers - they are painless, have been present 2 months. Concerning, she is amenable to biopsy. History of Present Illness History of Present Illness Ms Chavez is a 74 yo female w/ PMHx CHF, coronary stent placement for coronary artery disease, hypercholesterolemia, hypertension, COPD, asthma, GERD, hypothyroidism, chronic anemia, insomnia transferred from [place] for cough, shortness of breath, and dizziness. Longstanding complaints, but has worsened. Follows with Dr. Somers of cardiology. No known fevers, but was febrile upon arrival. Yesterday, had episode of aching in her left chest. Radiated down and around to her abdomen. Smiley slightly nauseated and was dizzy. No diaphoresis or palpitations. No LE edema. She does have chronic LE wounds that are not painful but are large and ulcerated. Vitals Vitals Vital Signs Date Time Temp Pulse Resp B/P (MAP) Pulse Ox O2 Delivery O2 Flow Rate FiO2 08/08/19 10:31 98.0 86 12 132/61 (84) 94 Room Air 98.0 Physical Exam General: Alert, Cooperative Abdomen: Normal bowel sounds, Soft Extremities: No clubbing, No edema Skin: No rashes Labs LABS Laboratory Tests Test 08/07/19 16:52 08/07/19 20:39 08/08/19 03:30 08/08/19 07:18 Glucose (Fingerstick) 210 mg/dL (70-99) 269 mg/dL (70-99) 136 mg/dL (70-99) White Blood Count 3.0 x10^3/uL (4.0-11.0) Red Blood Count 2.76 x10^6/uL (3.50-5.40) Hemoglobin 8.7 g/dL (12.0-15.5) Hematocrit 27.1 % (36.0-47.0) Mean Corpuscular Volume 98 fL (79-100) Mean Corpuscular Hemoglobin 32 pg (25-35) Mean Corpuscular Hemoglobin Concent 32 g/dL (31-37) Red Cell Distribution Width 16.2 % (11.5-14.5) Platelet Count 76 x10^3/uL (140-400) Neutrophils (%) (Auto) 57 % (31-73) Lymphocytes (%) (Auto) 29 % (24-48) Monocytes (%) (Auto) 8 % (0-9) Eosinophils (%) (Auto) 5 % (0-3) Basophils (%) (Auto) 1 % (0-3) Neutrophils # (Auto) 1.7 x10^3/uL (1.8-7.7) Lymphocytes # (Auto) 0.9 x10^3/uL (1.0-4.8) Monocytes # (Auto) 0.2 x10^3/uL (0.0-1.1) Eosinophils # (Auto) 0.1 x10^3/uL (0.0-0.7) Basophils # (Auto) 0.0 x10^3/uL (0.0-0.2) Sodium Level 142 mmol/L (136-145) Potassium Level 3.6 mmol/L (3.5-5.1) Chloride Level 109 mmol/L (98-107) Carbon Dioxide Level 26 mmol/L (21-32) Anion Gap 7 (6-14) Blood Urea Nitrogen 42 mg/dL (7-20) Creatinine 1.8 mg/dL (0.6-1.0) Estimated GFR (Cockcroft-Gault) 27.6 BUN/Creatinine Ratio 23 (6-20) Glucose Level 158 mg/dL (70-99) Calcium Level 8.0 mg/dL (8.5-10.1) Phosphorus Level 4.2 mg/dL (2.6-4.7) Total Bilirubin 0.4 mg/dL (0.2-1.0) Aspartate Amino Transf (AST/SGOT) 33 U/L (15-37) Alanine Aminotransferase (ALT/SGPT) 12 U/L (14-59) Alkaline Phosphatase 70 U/L (46-116) Total Protein 5.8 g/dL (6.4-8.2) Albumin 2.5 g/dL (3.4-5.0) Albumin/Globulin Ratio 0.8 (1.0-1.7) Test 11/2/19 12:00 Glucose (Fingerstick) 211 mg/dL (70-99) Comment Review of Relevant I have reviewed the following items arian (where applicable) has been applied. Labs Laboratory Tests Test 08/07/19 11:28 08/07/19 12:00 08/07/19 16:52 08/07/19 20:39 Glucose (Fingerstick) 180 mg/dL (70-99) 210 mg/dL (70-99) 269 mg/dL (70-99) White Blood Count 4.2 x10^3/uL (4.0-11.0) Red Blood Count 3.20 x10^6/uL (3.50-5.40) Hemoglobin 10.1 g/dL (12.0-15.5) Hematocrit 31.1 % (36.0-47.0) Mean Corpuscular Volume 97 fL (79-100) Mean Corpuscular Hemoglobin 32 pg (25-35) Mean Corpuscular Hemoglobin Concent 32 g/dL (31-37) Red Cell Distribution Width 16.0 % (11.5-14.5) Platelet Count 76 x10^3/uL (140-400) Neutrophils (%) (Auto) 72 % (31-73) Lymphocytes (%) (Auto) 19 % (24-48) Monocytes (%) (Auto) 8 % (0-9) Eosinophils (%) (Auto) 2 % (0-3) Basophils (%) (Auto) 1 % (0-3) Neutrophils # (Auto) 3.0 x10^3/uL (1.8-7.7) Lymphocytes # (Auto) 0.8 x10^3/uL (1.0-4.8) Monocytes # (Auto) 0.3 x10^3/uL (0.0-1.1) Eosinophils # (Auto) 0.1 x10^3/uL (0.0-0.7) Basophils # (Auto) 0.0 x10^3/uL (0.0-0.2) Prothrombin Time 14.6 SEC (11.7-14.0) Prothromb Time International Ratio 1.2 (0.8-1.1) Sodium Level 140 mmol/L (136-145) Potassium Level 3.8 mmol/L (3.5-5.1) Chloride Level 103 mmol/L (98-107) Carbon Dioxide Level 27 mmol/L (21-32) Anion Gap 10 (6-14) Blood Urea Nitrogen 46 mg/dL (7-20) Creatinine 2.0 mg/dL (0.6-1.0) Estimated GFR (Cockcroft-Gault) 24.4 BUN/Creatinine Ratio 23 (6-20) Glucose Level 186 mg/dL (70-99) Calcium Level 8.3 mg/dL (8.5-10.1) Total Bilirubin 0.5 mg/dL (0.2-1.0) Aspartate Amino Transf (AST/SGOT) 36 U/L (15-37) Alanine Aminotransferase (ALT/SGPT) 15 U/L (14-59) Alkaline Phosphatase 85 U/L (46-116) Total Protein 6.7 g/dL (6.4-8.2) Albumin 2.8 g/dL (3.4-5.0) Albumin/Globulin Ratio 0.7 (1.0-1.7) Test 08/08/19 03:30 08/08/19 07:18 08/08/19 12:00 White Blood Count 3.0 x10^3/uL (4.0-11.0) Red Blood Count 2.76 x10^6/uL (3.50-5.40) Hemoglobin 8.7 g/dL (12.0-15.5) Hematocrit 27.1 % (36.0-47.0) Mean Corpuscular Volume 98 fL (79-100) Mean Corpuscular Hemoglobin 32 pg (25-35) Mean Corpuscular Hemoglobin Concent 32 g/dL (31-37) Red Cell Distribution Width 16.2 % (11.5-14.5) Platelet Count 76 x10^3/uL (140-400) Neutrophils (%) (Auto) 57 % (31-73) Lymphocytes (%) (Auto) 29 % (24-48) Monocytes (%) (Auto) 8 % (0-9) Eosinophils (%) (Auto) 5 % (0-3) Basophils (%) (Auto) 1 % (0-3) Neutrophils # (Auto) 1.7 x10^3/uL (1.8-7.7) Lymphocytes # (Auto) 0.9 x10^3/uL (1.0-4.8) Monocytes # (Auto) 0.2 x10^3/uL (0.0-1.1) Eosinophils # (Auto) 0.1 x10^3/uL (0.0-0.7) Basophils # (Auto) 0.0 x10^3/uL (0.0-0.2) Sodium Level 142 mmol/L (136-145) Potassium Level 3.6 mmol/L (3.5-5.1) Chloride Level 109 mmol/L (98-107) Carbon Dioxide Level 26 mmol/L (21-32) Anion Gap 7 (6-14) Blood Urea Nitrogen 42 mg/dL (7-20) Creatinine 1.8 mg/dL (0.6-1.0) Estimated GFR (Cockcroft-Gault) 27.6 BUN/Creatinine Ratio 23 (6-20) Glucose Level 158 mg/dL (70-99) Calcium Level 8.0 mg/dL (8.5-10.1) Phosphorus Level 4.2 mg/dL (2.6-4.7) Total Bilirubin 0.4 mg/dL (0.2-1.0) Aspartate Amino Transf (AST/SGOT) 33 U/L (15-37) Alanine Aminotransferase (ALT/SGPT) 12 U/L (14-59) Alkaline Phosphatase 70 U/L (46-116) Total Protein 5.8 g/dL (6.4-8.2) Albumin 2.5 g/dL (3.4-5.0) Albumin/Globulin Ratio 0.8 (1.0-1.7) Glucose (Fingerstick) 136 mg/dL (70-99) 211 mg/dL (70-99) Laboratory Tests Test 08/07/19 16:52 08/07/19 20:39 08/08/19 03:30 08/08/19 07:18 Glucose (Fingerstick) 210 mg/dL (70-99) 269 mg/dL (70-99) 136 mg/dL (70-99) White Blood Count 3.0 x10^3/uL (4.0-11.0) Red Blood Count 2.76 x10^6/uL (3.50-5.40) Hemoglobin 8.7 g/dL (12.0-15.5) Hematocrit 27.1 % (36.0-47.0) Mean Corpuscular Volume 98 fL (79-100) Mean Corpuscular Hemoglobin 32 pg (25-35) Mean Corpuscular Hemoglobin Concent 32 g/dL (31-37) Red Cell Distribution Width 16.2 % (11.5-14.5) Platelet Count 76 x10^3/uL (140-400) Neutrophils (%) (Auto) 57 % (31-73) Lymphocytes (%) (Auto) 29 % (24-48) Monocytes (%) (Auto) 8 % (0-9) Eosinophils (%) (Auto) 5 % (0-3) Basophils (%) (Auto) 1 % (0-3) Neutrophils # (Auto) 1.7 x10^3/uL (1.8-7.7) Lymphocytes # (Auto) 0.9 x10^3/uL (1.0-4.8) Monocytes # (Auto) 0.2 x10^3/uL (0.0-1.1) Eosinophils # (Auto) 0.1 x10^3/uL (0.0-0.7) Basophils # (Auto) 0.0 x10^3/uL (0.0-0.2) Sodium Level 142 mmol/L (136-145) Potassium Level 3.6 mmol/L (3.5-5.1) Chloride Level 109 mmol/L (98-107) Carbon Dioxide Level 26 mmol/L (21-32) Anion Gap 7 (6-14) Blood Urea Nitrogen 42 mg/dL (7-20) Creatinine 1.8 mg/dL (0.6-1.0) Estimated GFR (Cockcroft-Gault) 27.6 BUN/Creatinine Ratio 23 (6-20) Glucose Level 158 mg/dL (70-99) Calcium Level 8.0 mg/dL (8.5-10.1) Phosphorus Level 4.2 mg/dL (2.6-4.7) Total Bilirubin 0.4 mg/dL (0.2-1.0) Aspartate Amino Transf (AST/SGOT) 33 U/L (15-37) Alanine Aminotransferase (ALT/SGPT) 12 U/L (14-59) Alkaline Phosphatase 70 U/L (46-116) Total Protein 5.8 g/dL (6.4-8.2) Albumin 2.5 g/dL (3.4-5.0) Albumin/Globulin Ratio 0.8 (1.0-1.7) Test 08/08/19 12:00 Glucose (Fingerstick) 211 mg/dL (70-99) Medications Current Medications Aspirin (Children'S Aspirin) 81 mg DAILY PO Last administered on 08/08/19 08:50; Start 08/08/19 at 09:00 Vitamin D (Vitamin D3) 3,000 unit DAILY PO Last administered on 08/08/19 08:50; Start 08/08/19 at 09:00 Furosemide (Lasix) 20 mg DAILY PO Last administered on 08/08/19 08:49; Start 08/08/19 at 09:00 Levothyroxine Sodium (Synthroid) 150 mcg DAILYAC PO Last administered on 08/08/19 07:31; Start 08/08/19 at 07:30 Linagliptin (Tradjenta) 5 mg DAILY PO Last administered on 08/08/19 08:50; Start 08/08/19 at 09:00 Non-Formulary Medication (Alendronate Sodium ) 1 tab WEEKLY PO ; Start 08/14/19 at 09:00; Status UNV Insulin Glargine (Lantus Syringe) 20 unit QHS SQ Last administered on 08/07/19at 20:43; Start 08/07/19 at 21:00 Losartan Potassium (Cozaar) 100 mg DAILY PO Last administered on 08/08/19 08:50; Start 08/08/19 at 09:00 Oxybutynin Chloride (Ditropan) 5 mg BID PO Last administered on 08/08/19 08:50; Start 08/07/19 at 21:00 Pantoprazole Sodium (Protonix) 40 mg DAILYAC PO Last administered on 08/08/19 07:31; Start 08/08/19 at 07:30 Atorvastatin Calcium (Lipitor) 10 mg QHS PO Last administered on 08/07/19at 19:59; Start 08/07/19 at 21:00 Sodium Chloride 1,000 ml @ 100 mls/hr 1X ONCE IV Last administered on 08/07/19 13:21; Start 08/07/19 at 13:00; Stop 08/07/19 at 22:59; Status DC Piperacillin Sod/ Tazobactam Sod (Zosyn Per Pharmacy) 1 each PRN DAILY PRN MC SEE COMMENTS; Start 08/07/19 at 13:15 Enoxaparin Sodium (Lovenox Per Pharmacy Prophylaxis Dosing) 1 each PRN DAILY PRN MC SEE COMMENTS; Start 08/07/19 at 13:15 Guaifenesin (Robitussin Dm) 10 ml PRN Q6HRS PRN PO COUGH Last administered on 10/08/18at 08:50; Start 08/07/19 at 13:30 Throat Lozenges (Cepacol Sore Throat Lozenge) 1 sylvia PRN Q2HRS PRN PO SORE THROAT Last administered on 08/08/19 08:50; Start 08/07/19 at 13:30 Albuterol/ Ipratropium (Duoneb) 3 ml 1X ONCE NEB Last administered on 08/07/19at 13:30; Start 08/07/19 at 13:30; Stop 08/07/19 at 13:32; Status DC Albuterol/ Ipratropium (Duoneb) 3 ml RTQID NEB Last administered on 08/08/19 07:49; Start 08/07/19 at 16:00 Influenza Virus Vaccine Quadrival (Afluria Quad 2019-20 (3yr Up) Syringe) 0.5 ml ONCE ONCE VAX IM ; Start 08/07/19 at 21:00; Stop 08/07/19 at 21:01; Status DC Enoxaparin Sodium (Lovenox 30mg Syringe) 30 mg Q24H SQ Last administered on 08/08/19at 08:49; Start 08/07/19 at 14:00 Piperacillin Sod/ Tazobactam Sod 2.25 gm/Sodium Chloride 50 ml @ 100 mls/hr Q6HRS IV Last administered on 08/08/19 11:56; Start 08/07/19 at 14:00 Multivitamins/ Minerals (I-Sravani) 1 tab DAILY PO Last administered on 08/08/19 08:50; Start 08/07/19 at 18:30 Ascorbic Acid (Vitamin C) 500 mg DAILY PO Last administered on 08/08/19 08:50; Start 08/07/19 at 18:30 Active Scripts Active Reported Oxybutynin Chloride Er (Oxybutynin Chloride) 10 Mg Tab.er.24 10 Mg PO DAILY Pravastatin Sodium 40 Mg Tablet 1 Tab PO QHS Protonix (Pantoprazole Sodium) 20 Mg Tablet.dr 40 Mg PO DAILY Tradjenta (Linagliptin) 5 Mg Tablet 5 Mg PO DAILY Levothyroxine Sodium 150 Mcg Tablet 150 Mcg PO DAILYAC Tresiba Flextouch U-200 (Insulin Degludec) 200 Unit/1 Ml Insuln.pen 20 Unit SQ HS Furosemide 20 Mg Tablet 1 Tab PO DAILY Vitamin D3 (Cholecalciferol (Vitamin D3)) 1,000 Unit Tablet 3,000 Unit PO DAILY Aspirin 81 Mg Tab.chew 1 Tab PO DAILY Alendronate Sodium 70 Mg Tablet 1 Tab PO WEEKLY Losartan Potassium 100 Mg Tablet 100 Mg PO DAILY Vitals/I & O Vital Sign - Last 24 Hours 08/07/19 08/07/19 08/07/19 08/07/19 14:29 15:41 19:05 20:05 Temp 98.7 98.2 98.7 98.2 Pulse 90 98 Resp 18 12 B/P (MAP) 116/56 (76) 109/60 (76) Pulse Ox 97 94 93 O2 Delivery Room Air Room Air Room Air Room Air 08/07/19 08/07/19 08/08/19 08/08/19 20:09 23:00 03:00 07:14 Temp 98.3 97.9 98.1 98.3 97.9 98.1 Pulse 81 84 69 Resp 12 12 12 B/P (MAP) 114/55 (74) 117/49 (71) 105/52 (69) Pulse Ox 95 94 92 91 O2 Delivery Room Air Room Air Room Air Room Air 08/08/19 08/08/19 08/08/19 07:50 08:50 10:31 Temp 98.0 98.0 Pulse 69 86 Resp 12 B/P (MAP) 105/52 132/61 (84) Pulse Ox 95 94 O2 Delivery Room Air Room Air Intake and Output 08/07/19 08/07/19 08/08/19 15:00 23:00 07:00 Intake Total 0 ml 240 ml 220 ml Output Total 200 ml 500 ml Balance 0 ml 40 ml -280 ml Nutrition Consultation Dietary Evaluation: Recommendations by RD: Increase Calorie Intake, Protein supplementation Comments: REC cardiac/ADA diet s/p cath REC Glucerna w/dinner (strawberry) REC MVI, Vit C - wound healing Expected Outcomes/Goals: PO intake to meet >75% est needs Interpretation of weight loss: >7.5% in 3 months Malnutrition Findings: Food and Nutrition Intake (Mod: <75% est energy req 7days Weight Status: Obese JUDY REYNAGA MD Aug 08, 2019 14:29
[2019-08-08 14:39] VITALS: BP 83/44
--- NOTE | 2019-08-08 15:33 | PDOC ---
PULMONARY PROGRESS NOTES Subjective The patient is a 74-year-old female that was admitted at [facility]. She was not feeling well. She had increasing weakness, unable to walk, was short of breath. She was very short of breath at times, not able to complete full sentences. The patient was admitted to [facility]. She was transferred today to [facility] for advance care. She has underlying diastolic heart failure, coronary artery disease. Her x-ray reveals some vascular congestion. She was transferred to [place] for possibility of undergoing a cardiac catheterization. Her workup included a V/Q scan, which I reviewed revealing no evidence of unmatched perfusion defect. Chest x-ray revealed mild vascular congestion. The patient currently has a cough, mostly nonproductive. No fever, chills, or night sweats. Cardiac cath planned for Saturday. Patient notes improved shortness of breath. She also had been having chest tightness with shortness of air, which is also better. Vitals Vital Signs Date Time Temp Pulse Resp B/P (MAP) Pulse Ox O2 Delivery O2 Flow Rate FiO2 08/08/19 15:04 Room Air 08/08/19 14:39 98.0 79 12 83/44 (57) 96 98.0 ROS: No Nausea, No Abdominal Pain, No Increase Cough General: Alert, Oriented X4 Lungs: Clear Cardiovascular: S1, S2 Abdomen: Soft Neuro Exam: Alert, Oriented, No Focal Findings Extremities: No Edema Labs Laboratory Tests Test 08/07/19 11:28 08/07/19 12:00 08/07/19 16:52 08/07/19 20:39 Glucose (Fingerstick) 180 mg/dL (70-99) 210 mg/dL (70-99) 269 mg/dL (70-99) White Blood Count 4.2 x10^3/uL (4.0-11.0) Red Blood Count 3.20 x10^6/uL (3.50-5.40) Hemoglobin 10.1 g/dL (12.0-15.5) Hematocrit 31.1 % (36.0-47.0) Mean Corpuscular Volume 97 fL (79-100) Mean Corpuscular Hemoglobin 32 pg (25-35) Mean Corpuscular Hemoglobin Concent 32 g/dL (31-37) Red Cell Distribution Width 16.0 % (11.5-14.5) Platelet Count 76 x10^3/uL (140-400) Neutrophils (%) (Auto) 72 % (31-73) Lymphocytes (%) (Auto) 19 % (24-48) Monocytes (%) (Auto) 8 % (0-9) Eosinophils (%) (Auto) 2 % (0-3) Basophils (%) (Auto) 1 % (0-3) Neutrophils # (Auto) 3.0 x10^3/uL (1.8-7.7) Lymphocytes # (Auto) 0.8 x10^3/uL (1.0-4.8) Monocytes # (Auto) 0.3 x10^3/uL (0.0-1.1) Eosinophils # (Auto) 0.1 x10^3/uL (0.0-0.7) Basophils # (Auto) 0.0 x10^3/uL (0.0-0.2) Prothrombin Time 14.6 SEC (11.7-14.0) Prothromb Time International Ratio 1.2 (0.8-1.1) Sodium Level 140 mmol/L (136-145) Potassium Level 3.8 mmol/L (3.5-5.1) Chloride Level 103 mmol/L (98-107) Carbon Dioxide Level 27 mmol/L (21-32) Anion Gap 10 (6-14) Blood Urea Nitrogen 46 mg/dL (7-20) Creatinine 2.0 mg/dL (0.6-1.0) Estimated GFR (Cockcroft-Gault) 24.4 BUN/Creatinine Ratio 23 (6-20) Glucose Level 186 mg/dL (70-99) Calcium Level 8.3 mg/dL (8.5-10.1) Total Bilirubin 0.5 mg/dL (0.2-1.0) Aspartate Amino Transf (AST/SGOT) 36 U/L (15-37) Alanine Aminotransferase (ALT/SGPT) 15 U/L (14-59) Alkaline Phosphatase 85 U/L (46-116) Total Protein 6.7 g/dL (6.4-8.2) Albumin 2.8 g/dL (3.4-5.0) Albumin/Globulin Ratio 0.7 (1.0-1.7) Test 08/08/19 03:30 08/08/19 07:18 08/08/19 12:00 White Blood Count 3.0 x10^3/uL (4.0-11.0) Red Blood Count 2.76 x10^6/uL (3.50-5.40) Hemoglobin 8.7 g/dL (12.0-15.5) Hematocrit 27.1 % (36.0-47.0) Mean Corpuscular Volume 98 fL (79-100) Mean Corpuscular Hemoglobin 32 pg (25-35) Mean Corpuscular Hemoglobin Concent 32 g/dL (31-37) Red Cell Distribution Width 16.2 % (11.5-14.5) Platelet Count 76 x10^3/uL (140-400) Neutrophils (%) (Auto) 57 % (31-73) Lymphocytes (%) (Auto) 29 % (24-48) Monocytes (%) (Auto) 8 % (0-9) Eosinophils (%) (Auto) 5 % (0-3) Basophils (%) (Auto) 1 % (0-3) Neutrophils # (Auto) 1.7 x10^3/uL (1.8-7.7) Lymphocytes # (Auto) 0.9 x10^3/uL (1.0-4.8) Monocytes # (Auto) 0.2 x10^3/uL (0.0-1.1) Eosinophils # (Auto) 0.1 x10^3/uL (0.0-0.7) Basophils # (Auto) 0.0 x10^3/uL (0.0-0.2) Sodium Level 142 mmol/L (136-145) Potassium Level 3.6 mmol/L (3.5-5.1) Chloride Level 109 mmol/L (98-107) Carbon Dioxide Level 26 mmol/L (21-32) Anion Gap 7 (6-14) Blood Urea Nitrogen 42 mg/dL (7-20) Creatinine 1.8 mg/dL (0.6-1.0) Estimated GFR (Cockcroft-Gault) 27.6 BUN/Creatinine Ratio 23 (6-20) Glucose Level 158 mg/dL (70-99) Calcium Level 8.0 mg/dL (8.5-10.1) Phosphorus Level 4.2 mg/dL (2.6-4.7) Total Bilirubin 0.4 mg/dL (0.2-1.0) Aspartate Amino Transf (AST/SGOT) 33 U/L (15-37) Alanine Aminotransferase (ALT/SGPT) 12 U/L (14-59) Alkaline Phosphatase 70 U/L (46-116) Total Protein 5.8 g/dL (6.4-8.2) Albumin 2.5 g/dL (3.4-5.0) Albumin/Globulin Ratio 0.8 (1.0-1.7) Glucose (Fingerstick) 136 mg/dL (70-99) 211 mg/dL (70-99) Laboratory Tests Test 08/07/19 16:52 08/07/19 20:39 08/08/19 03:30 08/08/19 07:18 Glucose (Fingerstick) 210 mg/dL (70-99) 269 mg/dL (70-99) 136 mg/dL (70-99) White Blood Count 3.0 x10^3/uL (4.0-11.0) Red Blood Count 2.76 x10^6/uL (3.50-5.40) Hemoglobin 8.7 g/dL (12.0-15.5) Hematocrit 27.1 % (36.0-47.0) Mean Corpuscular Volume 98 fL (79-100) Mean Corpuscular Hemoglobin 32 pg (25-35) Mean Corpuscular Hemoglobin Concent 32 g/dL (31-37) Red Cell Distribution Width 16.2 % (11.5-14.5) Platelet Count 76 x10^3/uL (140-400) Neutrophils (%) (Auto) 57 % (31-73) Lymphocytes (%) (Auto) 29 % (24-48) Monocytes (%) (Auto) 8 % (0-9) Eosinophils (%) (Auto) 5 % (0-3) Basophils (%) (Auto) 1 % (0-3) Neutrophils # (Auto) 1.7 x10^3/uL (1.8-7.7) Lymphocytes # (Auto) 0.9 x10^3/uL (1.0-4.8) Monocytes # (Auto) 0.2 x10^3/uL (0.0-1.1) Eosinophils # (Auto) 0.1 x10^3/uL (0.0-0.7) Basophils # (Auto) 0.0 x10^3/uL (0.0-0.2) Sodium Level 142 mmol/L (136-145) Potassium Level 3.6 mmol/L (3.5-5.1) Chloride Level 109 mmol/L (98-107) Carbon Dioxide Level 26 mmol/L (21-32) Anion Gap 7 (6-14) Blood Urea Nitrogen 42 mg/dL (7-20) Creatinine 1.8 mg/dL (0.6-1.0) Estimated GFR (Cockcroft-Gault) 27.6 BUN/Creatinine Ratio 23 (6-20) Glucose Level 158 mg/dL (70-99) Calcium Level 8.0 mg/dL (8.5-10.1) Phosphorus Level 4.2 mg/dL (2.6-4.7) Total Bilirubin 0.4 mg/dL (0.2-1.0) Aspartate Amino Transf (AST/SGOT) 33 U/L (15-37) Alanine Aminotransferase (ALT/SGPT) 12 U/L (14-59) Alkaline Phosphatase 70 U/L (46-116) Total Protein 5.8 g/dL (6.4-8.2) Albumin 2.5 g/dL (3.4-5.0) Albumin/Globulin Ratio 0.8 (1.0-1.7) Test 08/08/19 12:00 Glucose (Fingerstick) 211 mg/dL (70-99) Medications Active Scripts Medications Dose Route/Sig Max Daily Dose Days Date Category Oxybutynin Chloride Er (Oxybutynin Chloride) 10 Mg Tab.er.24 10 Mg PO DAILY 08/07/19 Reported Pravastatin Sodium 40 Mg Tablet 1 Tab PO QHS 10/17/18 Reported Protonix (Pantoprazole Sodium) 20 Mg Tablet.dr 40 Mg PO DAILY 10/17/18 Reported Tradjenta (Linagliptin) 5 Mg Tablet 5 Mg PO DAILY 10/17/18 Reported Levothyroxine Sodium 150 Mcg Tablet 150 Mcg PO DAILYAC 10/17/18 Reported Tresiba Flextouch U-200 (Insulin Degludec) 200 Unit/1 Ml Insuln.pen 20 Unit SQ HS 10/17/18 Reported Furosemide 20 Mg Tablet 1 Tab PO DAILY 10/17/18 Reported Vitamin D3 (Cholecalciferol (Vitamin D3)) 1,000 Unit Tablet 3,000 Unit PO DAILY 10/17/18 Reported Aspirin 81 Mg Tab.chew 1 Tab PO DAILY 10/17/18 Reported Alendronate Sodium 70 Mg Tablet 1 Tab PO WEEKLY 10/17/18 Reported Losartan Potassium 100 Mg Tablet 100 Mg PO DAILY 11/11/14 Reported Impression . 1. adult onset asthma, stable 2. shortness of breath that likely is more coronary insufficiency rather than asthma. Plan . Agree with cardiac cath on Saturday. Will follow along. Thank you. MARYAM NGUYEN MD Aug 08, 2019 15:33
--- NOTE | 2019-08-08 15:44 | PDOC ---
Renal-Progress Notes Subjective Notes Notes NO NEW COMPLAINTS History of Present Illness Hx of present illness STABLE Vitals Vitals Vital Signs Date Time Temp Pulse Resp B/P (MAP) Pulse Ox O2 Delivery O2 Flow Rate FiO2 08/08/19 15:04 Room Air 08/08/19 14:39 98.0 79 12 83/44 (57) 96 98.0 Weight Weight [ ] I.O. Intake and Output Intake and Output 08/08/19 07:00 Intake Total 460 ml Output Total 700 ml Balance -240 ml Intake Oral 360 ml IV Total 100 ml Output Urine Total 700 ml # Voids 1 Labs Labs Laboratory Tests Test 08/07/19 16:52 08/07/19 20:39 08/08/19 03:30 08/08/19 07:18 Glucose (Fingerstick) 210 mg/dL (70-99) 269 mg/dL (70-99) 136 mg/dL (70-99) White Blood Count 3.0 x10^3/uL (4.0-11.0) Red Blood Count 2.76 x10^6/uL (3.50-5.40) Hemoglobin 8.7 g/dL (12.0-15.5) Hematocrit 27.1 % (36.0-47.0) Mean Corpuscular Volume 98 fL (79-100) Mean Corpuscular Hemoglobin 32 pg (25-35) Mean Corpuscular Hemoglobin Concent 32 g/dL (31-37) Red Cell Distribution Width 16.2 % (11.5-14.5) Platelet Count 76 x10^3/uL (140-400) Neutrophils (%) (Auto) 57 % (31-73) Lymphocytes (%) (Auto) 29 % (24-48) Monocytes (%) (Auto) 8 % (0-9) Eosinophils (%) (Auto) 5 % (0-3) Basophils (%) (Auto) 1 % (0-3) Neutrophils # (Auto) 1.7 x10^3/uL (1.8-7.7) Lymphocytes # (Auto) 0.9 x10^3/uL (1.0-4.8) Monocytes # (Auto) 0.2 x10^3/uL (0.0-1.1) Eosinophils # (Auto) 0.1 x10^3/uL (0.0-0.7) Basophils # (Auto) 0.0 x10^3/uL (0.0-0.2) Sodium Level 142 mmol/L (136-145) Potassium Level 3.6 mmol/L (3.5-5.1) Chloride Level 109 mmol/L (98-107) Carbon Dioxide Level 26 mmol/L (21-32) Anion Gap 7 (6-14) Blood Urea Nitrogen 42 mg/dL (7-20) Creatinine 1.8 mg/dL (0.6-1.0) Estimated GFR (Cockcroft-Gault) 27.6 BUN/Creatinine Ratio 23 (6-20) Glucose Level 158 mg/dL (70-99) Calcium Level 8.0 mg/dL (8.5-10.1) Phosphorus Level 4.2 mg/dL (2.6-4.7) Total Bilirubin 0.4 mg/dL (0.2-1.0) Aspartate Amino Transf (AST/SGOT) 33 U/L (15-37) Alanine Aminotransferase (ALT/SGPT) 12 U/L (14-59) Alkaline Phosphatase 70 U/L (46-116) Total Protein 5.8 g/dL (6.4-8.2) Albumin 2.5 g/dL (3.4-5.0) Albumin/Globulin Ratio 0.8 (1.0-1.7) Test 08/08/19 12:00 Glucose (Fingerstick) 211 mg/dL (70-99) Review of Systems Constitutional: yes: weakness, alert, oriented Ears/Nose/Throat: Yes: no symptom reported Eyes: Yes: no symptom reported Pulmonary: Yes dyspnea Cardiovascular: Yes chest pain Gastrointestional: Yes: constipation Genitourinary: Yes: no symptom reported Musculoskeletal: Yes: no symptom reported Skin: Yes no symptom reported Psychiatric/Neurological: Yes: no symptom reported Endocrine: Yes: no symptom reported Physical Exam General Appearance: no apparent distress Skin: warm Respiratory: decreased breath sounds Heart: S1S2 Abdomen: bowel sounds present Genitourinary: bladder flat Extremities: pulses present Neurology: alert Musculoskeletal: Osteoarthritis Assessment Assessment IMP THOMAS-IMPROVED CKD STAGE 3 WITH CR NOW AT BASELINE OF ABOUT 1.7 HYPOMAGNESEMIA CHEST PAIN AND SOB ASTHMA LE ULCERS UTI-ON ANTIBIOTICS PLAN CONT DIURETICS FOR NOW REPLACE MAG IVF'S TOMORROW PROB HEART CATH SATURDAY WILL FOLLOW DENAE JOHNS MD Aug 08, 2019 15:44
[2019-08-08] MEDS ORDERED: MAGNESIUM SULFATE 2GM 50 ML IV ONE (16:00)
[2019-08-08] MEDS ORDERED: IV NORMAL SALINE 1000ML BAG 1,000 ML IV ONE (17:00)
[2019-08-08 19:43] VITALS: BP 90/51
[2019-08-08] MEDS: ATORVASTATIN CALCIUM 10 MG TABLET. PO SCH (20:47)
[2019-08-08] MEDS: LACTOBACILLUS RHAMNOSUS GG 1 CAPSULE. PO SCH (20:47)
[2019-08-08] MEDS: INSULIN GLARGINE SYRINGE. SQ SCH (20:55)
[2019-08-08 23:08] VITALS: BP 79/41
[2019-08-09 03:10] VITALS: BP 90/54
[2019-08-09] MEDS: PIPERACILLIN/TAZOBACTAM 2.25 GM in IV NORMAL SALINE 50ML 50 ML IV SCH ×2 (05:47→11:08)
[2019-08-09 06:10] LABS: CALCIUM 7.9 mg/dL (8.5-10.1); CREATININE 1.8 mg/dL (0.6-1.0); GFR 27.6; MAGNESIUM 2.5 mg/dL (1.8-2.4); POTASSIUM 3.3 mmol/L (3.5-5.1)
[2019-08-09 07:07] VITALS: BP 106/54
[2019-08-09] MEDS: PANTOPRAZOLE 40 MG TABLET.DR. PO SCH (07:11)
[2019-08-09] MEDS: LEVOTHYROXINE 150 MCG TABLET PO SCH (07:11)
[2019-08-09] MEDS: guaiFENesin DM 200MG/20MG 10 ML SYRUP PO PRN (07:19)
[2019-08-09] MEDS: ACETAMINOPHEN 325 MG TABLET. PO PRN (07:19)
[2019-08-09] MEDS: IPRATRPIUM/ALBUTEROL 0.5/2.5MG 3 ML NEBU. NEB SCH ×4 (07:23→20:16)
[2019-08-09] MEDS: ASPIRIN CHEWABLE 81 MG TABLET. PO SCH (08:25)
[2019-08-09] MEDS: LACTOBACILLUS RHAMNOSUS GG 1 CAPSULE. PO SCH ×2 (08:26→20:15)
[2019-08-09] MEDS: MULTIVITAMIN I-VITE TABLET. PO SCH (08:26)
[2019-08-09] MEDS: OXYBUTYNIN CHLORIDE 5 MG TABLET PO SCH ×2 (08:26→20:15)
[2019-08-09] MEDS: CHOLECALCIFEROL (VITAMIN D3) 1,000 UNIT TABLET PO SCH (08:26)
[2019-08-09] MEDS: ASCORBIC ACID 500 MG TABLET PO SCH (08:27)
[2019-08-09] MEDS: LINAGLIPTIN 5 MG TABLET PO SCH (08:27)
[2019-08-09] MEDS: FUROSEMIDE 20 MG TABLET PO SCH (08:27)
[2019-08-09] MEDS: LOSARTAN POTASSIUM 50 MG TABLET. PO SCH (09:00)
--- NOTE | 2019-08-09 09:24 | PDOC ---
PULMONARY PROGRESS NOTES Subjective The patient is a 74-year-old female that was admitted at [facility]. She was not feeling well. She had increasing weakness, unable to walk, was short of breath. She was very short of breath at times, not able to complete full sentences. The patient was admitted to [facility]. She was transferred today to [facility] for advance care. She has underlying diastolic heart failure, coronary artery disease. Her x-ray reveals some vascular congestion. She was transferred to [place] for possibility of undergoing a cardiac catheterization. Her workup included a V/Q scan, which I reviewed revealing no evidence of unmatched perfusion defect. Chest x-ray revealed mild vascular congestion. The patient currently has a cough, mostly nonproductive. No fever, chills, or night sweats. Cardiac cath planned for Saturday. Patient notes improved shortness of breath. She also had been having chest tightness with shortness of air, which is also better. Over night and this morning no chest pain, no shortness of breath. Vitals Vital Signs Date Time Temp Pulse Resp B/P (MAP) Pulse Ox O2 Delivery O2 Flow Rate FiO2 08/09/19 07:37 Room Air 08/09/19 07:24 96 08/09/19 07:07 97.9 75 16 106/54 (71) 97.9 ROS: No Nausea, No Abdominal Pain, No Increase Cough General: Alert, Oriented X4 Lungs: Clear Cardiovascular: S1, S2 Abdomen: Soft Neuro Exam: Alert, Oriented, No Focal Findings Extremities: No Edema Labs Laboratory Tests Test 08/07/19 11:28 08/07/19 12:00 08/07/19 16:52 08/07/19 20:39 Glucose (Fingerstick) 180 mg/dL (70-99) 210 mg/dL (70-99) 269 mg/dL (70-99) White Blood Count 4.2 x10^3/uL (4.0-11.0) Red Blood Count 3.20 x10^6/uL (3.50-5.40) Hemoglobin 10.1 g/dL (12.0-15.5) Hematocrit 31.1 % (36.0-47.0) Mean Corpuscular Volume 97 fL (79-100) Mean Corpuscular Hemoglobin 32 pg (25-35) Mean Corpuscular Hemoglobin Concent 32 g/dL (31-37) Red Cell Distribution Width 16.0 % (11.5-14.5) Platelet Count 76 x10^3/uL (140-400) Neutrophils (%) (Auto) 72 % (31-73) Lymphocytes (%) (Auto) 19 % (24-48) Monocytes (%) (Auto) 8 % (0-9) Eosinophils (%) (Auto) 2 % (0-3) Basophils (%) (Auto) 1 % (0-3) Neutrophils # (Auto) 3.0 x10^3/uL (1.8-7.7) Lymphocytes # (Auto) 0.8 x10^3/uL (1.0-4.8) Monocytes # (Auto) 0.3 x10^3/uL (0.0-1.1) Eosinophils # (Auto) 0.1 x10^3/uL (0.0-0.7) Basophils # (Auto) 0.0 x10^3/uL (0.0-0.2) Prothrombin Time 14.6 SEC (11.7-14.0) Prothromb Time International Ratio 1.2 (0.8-1.1) Sodium Level 140 mmol/L (136-145) Potassium Level 3.8 mmol/L (3.5-5.1) Chloride Level 103 mmol/L (98-107) Carbon Dioxide Level 27 mmol/L (21-32) Anion Gap 10 (6-14) Blood Urea Nitrogen 46 mg/dL (7-20) Creatinine 2.0 mg/dL (0.6-1.0) Estimated GFR (Cockcroft-Gault) 24.4 BUN/Creatinine Ratio 23 (6-20) Glucose Level 186 mg/dL (70-99) Calcium Level 8.3 mg/dL (8.5-10.1) Total Bilirubin 0.5 mg/dL (0.2-1.0) Aspartate Amino Transf (AST/SGOT) 36 U/L (15-37) Alanine Aminotransferase (ALT/SGPT) 15 U/L (14-59) Alkaline Phosphatase 85 U/L (46-116) Total Protein 6.7 g/dL (6.4-8.2) Albumin 2.8 g/dL (3.4-5.0) Albumin/Globulin Ratio 0.7 (1.0-1.7) Test 08/08/19 03:30 08/08/19 07:18 08/08/19 12:00 08/08/19 16:41 White Blood Count 3.0 x10^3/uL (4.0-11.0) Red Blood Count 2.76 x10^6/uL (3.50-5.40) Hemoglobin 8.7 g/dL (12.0-15.5) Hematocrit 27.1 % (36.0-47.0) Mean Corpuscular Volume 98 fL (79-100) Mean Corpuscular Hemoglobin 32 pg (25-35) Mean Corpuscular Hemoglobin Concent 32 g/dL (31-37) Red Cell Distribution Width 16.2 % (11.5-14.5) Platelet Count 76 x10^3/uL (140-400) Neutrophils (%) (Auto) 57 % (31-73) Lymphocytes (%) (Auto) 29 % (24-48) Monocytes (%) (Auto) 8 % (0-9) Eosinophils (%) (Auto) 5 % (0-3) Basophils (%) (Auto) 1 % (0-3) Neutrophils # (Auto) 1.7 x10^3/uL (1.8-7.7) Lymphocytes # (Auto) 0.9 x10^3/uL (1.0-4.8) Monocytes # (Auto) 0.2 x10^3/uL (0.0-1.1) Eosinophils # (Auto) 0.1 x10^3/uL (0.0-0.7) Basophils # (Auto) 0.0 x10^3/uL (0.0-0.2) Sodium Level 142 mmol/L (136-145) Potassium Level 3.6 mmol/L (3.5-5.1) Chloride Level 109 mmol/L (98-107) Carbon Dioxide Level 26 mmol/L (21-32) Anion Gap 7 (6-14) Blood Urea Nitrogen 42 mg/dL (7-20) Creatinine 1.8 mg/dL (0.6-1.0) Estimated GFR (Cockcroft-Gault) 27.6 BUN/Creatinine Ratio 23 (6-20) Glucose Level 158 mg/dL (70-99) Calcium Level 8.0 mg/dL (8.5-10.1) Phosphorus Level 4.2 mg/dL (2.6-4.7) Total Bilirubin 0.4 mg/dL (0.2-1.0) Aspartate Amino Transf (AST/SGOT) 33 U/L (15-37) Alanine Aminotransferase (ALT/SGPT) 12 U/L (14-59) Alkaline Phosphatase 70 U/L (46-116) Total Protein 5.8 g/dL (6.4-8.2) Albumin 2.5 g/dL (3.4-5.0) Albumin/Globulin Ratio 0.8 (1.0-1.7) Glucose (Fingerstick) 136 mg/dL (70-99) 211 mg/dL (70-99) 170 mg/dL (70-99) Test 08/09/19 04:45 08/09/19 07:11 Sodium Level 143 mmol/L (136-145) Potassium Level 3.3 mmol/L (3.5-5.1) Chloride Level 110 mmol/L (98-107) Carbon Dioxide Level 23 mmol/L (21-32) Anion Gap 10 (6-14) Blood Urea Nitrogen 34 mg/dL (7-20) Creatinine 1.8 mg/dL (0.6-1.0) Estimated GFR (Cockcroft-Gault) 27.6 Glucose Level 145 mg/dL (70-99) Calcium Level 7.9 mg/dL (8.5-10.1) Magnesium Level 2.5 mg/dL (1.8-2.4) Glucose (Fingerstick) 141 mg/dL (70-99) Laboratory Tests Test 08/08/19 12:00 08/08/19 16:41 08/09/19 04:45 08/09/19 07:11 Glucose (Fingerstick) 211 mg/dL (70-99) 170 mg/dL (70-99) 141 mg/dL (70-99) Sodium Level 143 mmol/L (136-145) Potassium Level 3.3 mmol/L (3.5-5.1) Chloride Level 110 mmol/L (98-107) Carbon Dioxide Level 23 mmol/L (21-32) Anion Gap 10 (6-14) Blood Urea Nitrogen 34 mg/dL (7-20) Creatinine 1.8 mg/dL (0.6-1.0) Estimated GFR (Cockcroft-Gault) 27.6 Glucose Level 145 mg/dL (70-99) Calcium Level 7.9 mg/dL (8.5-10.1) Magnesium Level 2.5 mg/dL (1.8-2.4) Medications Active Scripts Medications Dose Route/Sig Max Daily Dose Days Date Category Oxybutynin Chloride Er (Oxybutynin Chloride) 10 Mg Tab.er.24 10 Mg PO DAILY 08/07/19 Reported Pravastatin Sodium 40 Mg Tablet 1 Tab PO QHS 10/17/18 Reported Protonix (Pantoprazole Sodium) 20 Mg Tablet.dr 40 Mg PO DAILY 10/17/18 Reported Tradjenta (Linagliptin) 5 Mg Tablet 5 Mg PO DAILY 10/17/18 Reported Levothyroxine Sodium 150 Mcg Tablet 150 Mcg PO DAILYAC 10/17/18 Reported Tresiba Flextouch U-200 (Insulin Degludec) 200 Unit/1 Ml Insuln.pen 20 Unit SQ HS 10/17/18 Reported Furosemide 20 Mg Tablet 1 Tab PO DAILY 10/17/18 Reported Vitamin D3 (Cholecalciferol (Vitamin D3)) 1,000 Unit Tablet 3,000 Unit PO DAILY 10/17/18 Reported Aspirin 81 Mg Tab.chew 1 Tab PO DAILY 10/17/18 Reported Alendronate Sodium 70 Mg Tablet 1 Tab PO WEEKLY 10/17/18 Reported Losartan Potassium 100 Mg Tablet 100 Mg PO DAILY 11/11/14 Reported Impression . 1. adult onset asthma, stable 2. shortness of breath that likely is more coronary insufficiency rather than asthma. Plan . Agree with cardiac cath on Saturday. Will follow along. Thank you. MARYAM NGUYEN MD Aug 09, 2019 09:24
[2019-08-09 10:22] VITALS: BP 102/62
--- NOTE | 2019-08-09 10:47 | PDOC ---
PROGRESS NOTES Chief Complaint Chief Complaint Chest pain and dyspnea - concerning this is anginal, planned [facility] on CKD - nephrology consulted. Has baseline Cr 1.5-1.7, does not follow nephrology. Will give IVF and hold diuretics prior to [facility] UTI - had been on vanc/zosyn at [facility], change to rocephin based on voss- sensitive e. coli COPD - pulm following Lower extremity ulcers - they are painless, have been present 2 months. Concerning, she is amenable to biopsy. History of Present Illness History of Present Illness Ms Chavez is a 74 yo female w/ PMHx CHF, coronary stent placement for coronary artery disease, hypercholesterolemia, hypertension, COPD, asthma, GERD, hypothyroidism, chronic anemia, insomnia transferred from [facility] [place] for cough, shortness of breath, and dizziness. Longstanding complaints, but has worsened. Follows with Dr. Somers of cardiology. No known fevers, but was febrile upon arrival. Yesterday, had episode of aching in her left chest. Radiated down and around to her abdomen. [place] slightly nauseated and was dizzy. No diaphoresis or palpitations. No LE edema. She does have chronic LE wounds that are not painful but are large and ulcerated. Had some low BP yesterday, improved with IVF and holding antihypertensives. Asymptomatic. Still a bit short of breath, chest pain improved somewhat. Vitals Vitals Vital Signs Date Time Temp Pulse Resp B/P (MAP) Pulse Ox O2 Delivery O2 Flow Rate FiO2 08/09/19 10:22 98.0 78 16 102/62 (75) 95 Room Air 98.0 Physical Exam General: Alert, Cooperative Lungs: Clear Abdomen: Normal bowel sounds, Soft Extremities: No clubbing, No edema Skin: No rashes Labs LABS Laboratory Tests Test 08/08/19 12:00 08/08/19 16:41 08/09/19 04:45 08/09/19 07:11 Glucose (Fingerstick) 211 mg/dL (70-99) 170 mg/dL (70-99) 141 mg/dL (70-99) Sodium Level 143 mmol/L (136-145) Potassium Level 3.3 mmol/L (3.5-5.1) Chloride Level 110 mmol/L (98-107) Carbon Dioxide Level 23 mmol/L (21-32) Anion Gap 10 (6-14) Blood Urea Nitrogen 34 mg/dL (7-20) Creatinine 1.8 mg/dL (0.6-1.0) Estimated GFR (Cockcroft-Gault) 27.6 Glucose Level 145 mg/dL (70-99) Calcium Level 7.9 mg/dL (8.5-10.1) Magnesium Level 2.5 mg/dL (1.8-2.4) Comment Review of Relevant I have reviewed the following items arian (where applicable) has been applied. Labs Laboratory Tests Test 08/07/19 11:28 08/07/19 12:00 08/07/19 16:52 08/07/19 20:39 Glucose (Fingerstick) 180 mg/dL (70-99) 210 mg/dL (70-99) 269 mg/dL (70-99) White Blood Count 4.2 x10^3/uL (4.0-11.0) Red Blood Count 3.20 x10^6/uL (3.50-5.40) Hemoglobin 10.1 g/dL (12.0-15.5) Hematocrit 31.1 % (36.0-47.0) Mean Corpuscular Volume 97 fL (79-100) Mean Corpuscular Hemoglobin 32 pg (25-35) Mean Corpuscular Hemoglobin Concent 32 g/dL (31-37) Red Cell Distribution Width 16.0 % (11.5-14.5) Platelet Count 76 x10^3/uL (140-400) Neutrophils (%) (Auto) 72 % (31-73) Lymphocytes (%) (Auto) 19 % (24-48) Monocytes (%) (Auto) 8 % (0-9) Eosinophils (%) (Auto) 2 % (0-3) Basophils (%) (Auto) 1 % (0-3) Neutrophils # (Auto) 3.0 x10^3/uL (1.8-7.7) Lymphocytes # (Auto) 0.8 x10^3/uL (1.0-4.8) Monocytes # (Auto) 0.3 x10^3/uL (0.0-1.1) Eosinophils # (Auto) 0.1 x10^3/uL (0.0-0.7) Basophils # (Auto) 0.0 x10^3/uL (0.0-0.2) Prothrombin Time 14.6 SEC (11.7-14.0) Prothromb Time International Ratio 1.2 (0.8-1.1) Sodium Level 140 mmol/L (136-145) Potassium Level 3.8 mmol/L (3.5-5.1) Chloride Level 103 mmol/L (98-107) Carbon Dioxide Level 27 mmol/L (21-32) Anion Gap 10 (6-14) Blood Urea Nitrogen 46 mg/dL (7-20) Creatinine 2.0 mg/dL (0.6-1.0) Estimated GFR (Cockcroft-Gault) 24.4 BUN/Creatinine Ratio 23 (6-20) Glucose Level 186 mg/dL (70-99) Calcium Level 8.3 mg/dL (8.5-10.1) Total Bilirubin 0.5 mg/dL (0.2-1.0) Aspartate Amino Transf (AST/SGOT) 36 U/L (15-37) Alanine Aminotransferase (ALT/SGPT) 15 U/L (14-59) Alkaline Phosphatase 85 U/L (46-116) Total Protein 6.7 g/dL (6.4-8.2) Albumin 2.8 g/dL (3.4-5.0) Albumin/Globulin Ratio 0.7 (1.0-1.7) Test 08/08/19 03:30 08/08/19 07:18 08/08/19 12:00 08/08/19 16:41 White Blood Count 3.0 x10^3/uL (4.0-11.0) Red Blood Count 2.76 x10^6/uL (3.50-5.40) Hemoglobin 8.7 g/dL (12.0-15.5) Hematocrit 27.1 % (36.0-47.0) Mean Corpuscular Volume 98 fL (79-100) Mean Corpuscular Hemoglobin 32 pg (25-35) Mean Corpuscular Hemoglobin Concent 32 g/dL (31-37) Red Cell Distribution Width 16.2 % (11.5-14.5) Platelet Count 76 x10^3/uL (140-400) Neutrophils (%) (Auto) 57 % (31-73) Lymphocytes (%) (Auto) 29 % (24-48) Monocytes (%) (Auto) 8 % (0-9) Eosinophils (%) (Auto) 5 % (0-3) Basophils (%) (Auto) 1 % (0-3) Neutrophils # (Auto) 1.7 x10^3/uL (1.8-7.7) Lymphocytes # (Auto) 0.9 x10^3/uL (1.0-4.8) Monocytes # (Auto) 0.2 x10^3/uL (0.0-1.1) Eosinophils # (Auto) 0.1 x10^3/uL (0.0-0.7) Basophils # (Auto) 0.0 x10^3/uL (0.0-0.2) Sodium Level 142 mmol/L (136-145) Potassium Level 3.6 mmol/L (3.5-5.1) Chloride Level 109 mmol/L (98-107) Carbon Dioxide Level 26 mmol/L (21-32) Anion Gap 7 (6-14) Blood Urea Nitrogen 42 mg/dL (7-20) Creatinine 1.8 mg/dL (0.6-1.0) Estimated GFR (Cockcroft-Gault) 27.6 BUN/Creatinine Ratio 23 (6-20) Glucose Level 158 mg/dL (70-99) Calcium Level 8.0 mg/dL (8.5-10.1) Phosphorus Level 4.2 mg/dL (2.6-4.7) Total Bilirubin 0.4 mg/dL (0.2-1.0) Aspartate Amino Transf (AST/SGOT) 33 U/L (15-37) Alanine Aminotransferase (ALT/SGPT) 12 U/L (14-59) Alkaline Phosphatase 70 U/L (46-116) Total Protein 5.8 g/dL (6.4-8.2) Albumin 2.5 g/dL (3.4-5.0) Albumin/Globulin Ratio 0.8 (1.0-1.7) Glucose (Fingerstick) 136 mg/dL (70-99) 211 mg/dL (70-99) 170 mg/dL (70-99) Test 08/09/19 04:45 08/09/19 07:11 Sodium Level 143 mmol/L (136-145) Potassium Level 3.3 mmol/L (3.5-5.1) Chloride Level 110 mmol/L (98-107) Carbon Dioxide Level 23 mmol/L (21-32) Anion Gap 10 (6-14) Blood Urea Nitrogen 34 mg/dL (7-20) Creatinine 1.8 mg/dL (0.6-1.0) Estimated GFR (Cockcroft-Gault) 27.6 Glucose Level 145 mg/dL (70-99) Calcium Level 7.9 mg/dL (8.5-10.1) Magnesium Level 2.5 mg/dL (1.8-2.4) Glucose (Fingerstick) 141 mg/dL (70-99) Laboratory Tests Test 08/08/19 12:00 08/08/19 16:41 08/09/19 04:45 08/09/19 07:11 Glucose (Fingerstick) 211 mg/dL (70-99) 170 mg/dL (70-99) 141 mg/dL (70-99) Sodium Level 143 mmol/L (136-145) Potassium Level 3.3 mmol/L (3.5-5.1) Chloride Level 110 mmol/L (98-107) Carbon Dioxide Level 23 mmol/L (21-32) Anion Gap 10 (6-14) Blood Urea Nitrogen 34 mg/dL (7-20) Creatinine 1.8 mg/dL (0.6-1.0) Estimated GFR (Cockcroft-Gault) 27.6 Glucose Level 145 mg/dL (70-99) Calcium Level 7.9 mg/dL (8.5-10.1) Magnesium Level 2.5 mg/dL (1.8-2.4) Medications Current Medications Aspirin (Children'S Aspirin) 81 mg DAILY PO Last administered on 08/09/19at 08:25; Start 08/08/19 at 09:00 Vitamin D (Vitamin D3) 3,000 unit DAILY PO Last administered on 08/09/19at 08:26; Start 08/08/19 at 09:00 Furosemide (Lasix) 20 mg DAILY PO Last administered on 08/09/19at 08:27; Start 08/08/19 at 09:00 Levothyroxine Sodium (Synthroid) 150 mcg DAILYAC PO Last administered on 08/09/19at 07:11; Start 08/08/19 at 07:30 Linagliptin (Tradjenta) 5 mg DAILY PO Last administered on 08/09/19 08:27; Start 08/08/19 at 09:00 Non-Formulary Medication (Alendronate Sodium ) 1 tab WEEKLY PO ; Start 08/14/19 at 09:00; Status UNV Insulin Glargine (Lantus Syringe) 20 unit QHS SQ Last administered on 08/08/19at 20:55; Start 08/07/19 at 21:00 Losartan Potassium (Cozaar) 100 mg DAILY PO Last administered on 08/08/19 08:50; Start 08/08/19 at 09:00; Stop 08/08/19 at 16:48; Status DC Oxybutynin Chloride (Ditropan) 5 mg BID PO Last administered on 08/09/19 08:26; Start 08/07/19 at 21:00 Pantoprazole Sodium (Protonix) 40 mg DAILYAC PO Last administered on 08/09/19 07:11; Start 08/08/19 at 07:30 Atorvastatin Calcium (Lipitor) 10 mg QHS PO Last administered on 08/08/19at 20:47; Start 08/07/19 at 21:00 Sodium Chloride 1,000 ml @ 100 mls/hr 1X ONCE IV Last administered on 08/07/19 13:21; Start 08/07/19 at 13:00; Stop 08/07/19 at 22:59; Status DC Piperacillin Sod/ Tazobactam Sod (Zosyn Per Pharmacy) 1 each PRN DAILY PRN MC SEE COMMENTS; Start 08/07/19 at 13:15 Enoxaparin Sodium (Lovenox Per Pharmacy Prophylaxis Dosing) 1 each PRN DAILY PRN MC SEE COMMENTS; Start 08/07/19 at 13:15 Guaifenesin (Robitussin Dm) 10 ml PRN Q6HRS PRN PO COUGH Last administered on 08/09/19 07:19; Start 08/07/19 at 13:30 Throat Lozenges (Cepacol Sore Throat Lozenge) 1 sylvia PRN Q2HRS PRN PO SORE THROAT Last administered on 08/08/19at 08:50; Start 08/07/19 at 13:30 Albuterol/ Ipratropium (Duoneb) 3 ml 1X ONCE NEB Last administered on 08/07/19at 13:30; Start 08/07/19 at 13:30; Stop 08/07/19 at 13:32; Status DC Albuterol/ Ipratropium (Duoneb) 3 ml RTQID NEB Last administered on 08/09/19at 07:23; Start 08/07/19 at 16:00 Influenza Virus Vaccine Quadrival (Afluria Quad 2019-20 (3yr Up) Syringe) 0.5 ml ONCE ONCE VAX IM ; Start 08/07/19 at 21:00; Stop 08/07/19 at 21:01; Status DC Enoxaparin Sodium (Lovenox 30mg Syringe) 30 mg Q24H SQ Last administered on 08/08/19at 08:49; Start 08/07/19 at 14:00 Piperacillin Sod/ Tazobactam Sod 2.25 gm/Sodium Chloride 50 ml @ 100 mls/hr Q6HRS IV Last administered on 08/09/19at 05:47; Start 08/07/19 at 14:00 Multivitamins/ Minerals (I-Sravani) 1 tab DAILY PO Last administered on 08/09/19at 08:26; Start 08/07/19 at 18:30 Ascorbic Acid (Vitamin C) 500 mg DAILY PO Last administered on 08/09/19at 08:27; Start 08/07/19 at 18:30 Magnesium Sulfate 50 ml @ 25 mls/hr 1X ONCE IV Last administered on 08/08/19at 16:33; Start 08/08/19 at 16:00; Stop 08/08/19 at 17:59; Status DC Lactobacillus Rhamnosus (Culturelle) 1 cap BID PO Last administered on 08/09/19at 08:26; Start 08/08/19 at 21:00 Losartan Potassium (Cozaar) 25 mg DAILY PO ; Start 08/09/19 at 09:00 Sodium Chloride 1,000 ml @ 1,000 mls/hr 1X ONCE IV Last administered on 08/08/19at 17:00; Start 08/08/19 at 17:00; Stop 08/08/19 at 17:59; Status DC Acetaminophen (Tylenol) 650 mg PRN Q6HRS PRN PO PAIN Last administered on 08/09/19at 07:19; Start 08/09/19 at 07:15 Active Scripts Active Reported Oxybutynin Chloride Er (Oxybutynin Chloride) 10 Mg Tab.er.24 10 Mg PO DAILY Pravastatin Sodium 40 Mg Tablet 1 Tab PO QHS Protonix (Pantoprazole Sodium) 20 Mg Tablet.dr 40 Mg PO DAILY Tradjenta (Linagliptin) 5 Mg Tablet 5 Mg PO DAILY Levothyroxine Sodium 150 Mcg Tablet 150 Mcg PO DAILYAC Tresiba Flextouch U-200 (Insulin Degludec) 200 Unit/1 Ml Insuln.pen 20 Unit SQ HS Furosemide 20 Mg Tablet 1 Tab PO DAILY Vitamin D3 (Cholecalciferol (Vitamin D3)) 1,000 Unit Tablet 3,000 Unit PO DAILY Aspirin 81 Mg Tab.chew 1 Tab PO DAILY Alendronate Sodium 70 Mg Tablet 1 Tab PO WEEKLY Losartan Potassium 100 Mg Tablet 100 Mg PO DAILY Vitals/I & O Vital Sign - Last 24 Hours 08/08/19 08/08/19 08/08/19 08/08/19 14:39 15:04 19:32 19:43 Temp 98.0 97.7 98.0 97.7 Pulse 79 85 Resp 12 16 B/P (MAP) 83/44 (57) 90/51 (64) Pulse Ox 96 97 95 O2 Delivery Room Air Room Air Room Air Room Air 08/08/19 08/08/19 08/09/19 08/09/19 20:00 23:08 03:10 07:07 Temp 98.0 98.1 97.9 98.0 98.1 97.9 Pulse 77 77 75 Resp 16 16 16 B/P (MAP) 79/41 (54) 90/54 (66) 106/54 (71) Pulse Ox 95 96 95 O2 Delivery Room Air Room Air Room Air Room Air 08/09/19 08/09/19 08/09/19 07:24 07:37 10:22 Temp 98.0 98.0 Pulse 78 Resp 16 B/P (MAP) 102/62 (75) Pulse Ox 96 95 O2 Delivery Room Air Room Air Room Air Intake and Output 08/08/19 08/08/19 08/09/19 15:00 23:00 07:00 Intake Total 300 ml 850 ml 750 ml Output Total 950 ml 300 ml Balance 300 ml -100 ml 450 ml Nutrition Consultation Dietary Evaluation: Recommendations by RD: Increase Calorie Intake, Protein supplementation Comments: REC cardiac/ADA diet s/p cath REC Glucerna w/dinner (strawberry) REC MVI, Vit C - wound healing Expected Outcomes/Goals: PO intake to meet >75% est needs Interpretation of weight loss: >7.5% in 3 months Malnutrition Findings: Food and Nutrition Intake (Mod: <75% est energy req 7days Weight Status: Obese JUDY REYNAGA MD Aug 09, 2019 10:47
[2019-08-09] MEDS ORDERED: POTASSIUM CHLORIDE 20 MEQ TABLET.ER. PO ONE (11:00)
--- NOTE | 2019-08-09 11:40 | PDOC ---
Renal-Progress Notes Subjective Notes Notes NO CHEST PAIN AND SOB HAS IMPROVED History of Present Illness Hx of present illness BETTER Vitals Vitals Vital Signs Date Time Temp Pulse Resp B/P (MAP) Pulse Ox O2 Delivery O2 Flow Rate FiO2 08/09/19 11:12 Room Air 08/09/19 10:22 98.0 78 16 102/62 (75) 95 98.0 Weight Weight [ ] I.O. Intake and Output Intake and Output 08/09/19 07:00 Intake Total 1900 ml Output Total 1250 ml Balance 650 ml Intake Oral 1800 ml IV Total 100 ml Output Urine Total 1250 ml # Voids 2 Labs Labs Laboratory Tests Test 08/08/19 12:00 08/08/19 16:41 08/09/19 04:45 08/09/19 07:11 Glucose (Fingerstick) 211 mg/dL (70-99) 170 mg/dL (70-99) 141 mg/dL (70-99) Sodium Level 143 mmol/L (136-145) Potassium Level 3.3 mmol/L (3.5-5.1) Chloride Level 110 mmol/L (98-107) Carbon Dioxide Level 23 mmol/L (21-32) Anion Gap 10 (6-14) Blood Urea Nitrogen 34 mg/dL (7-20) Creatinine 1.8 mg/dL (0.6-1.0) Estimated GFR (Cockcroft-Gault) 27.6 Glucose Level 145 mg/dL (70-99) Calcium Level 7.9 mg/dL (8.5-10.1) Magnesium Level 2.5 mg/dL (1.8-2.4) Test 08/09/19 11:24 Glucose (Fingerstick) 171 mg/dL (70-99) Review of Systems Constitutional: yes: weakness, alert, oriented Ears/Nose/Throat: Yes: no symptom reported Eyes: Yes: no symptom reported Pulmonary: Yes dyspnea Cardiovascular: Yes chest pain Gastrointestional: Yes: constipation Genitourinary: Yes: no symptom reported Musculoskeletal: Yes: no symptom reported Skin: Yes no symptom reported Psychiatric/Neurological: Yes: no symptom reported Endocrine: Yes: no symptom reported Physical Exam General Appearance: no apparent distress Skin: warm Respiratory: decreased breath sounds Heart: S1S2 Abdomen: bowel sounds present Genitourinary: bladder flat Extremities: pulses present Neurology: alert Musculoskeletal: Osteoarthritis Assessment Assessment IMP [id number] AT BASELINE CKD STAGE 3 WITH CR NOW AT BASELINE OF ABOUT 1.7 CHEST PAIN AND SOB ASTHMA LE ULCERS UTI-ON ANTIBIOTICS PLAN DIURETICS N HOLD FOR NOW IVF'S TO START TO MINIMIZE RISK OF CAN PROB HEART CATH TOMORROW WILL FOLLOW DENAE JOHNS MD Aug 09, 2019 11:40
[2019-08-09] MEDS: IV NORMAL SALINE 1000ML BAG 1,000 ML IV SCH (12:13)
[2019-08-09] MEDS ORDERED: HYDROcodone/APAP 5/325MG 1 TAB TABLET PO PRN (12:15)
[2019-08-09] MEDS: ENOXAPARIN 30 MG/0.3 ML SYRINGE. SQ SCH (13:04)
[2019-08-09 14:18] VITALS: BP 104/51
[2019-08-09] MEDS ORDERED: DEXTROSE 50% 25 GM / 50ML DISP.SYRIN. IV PRN (17:00)
[2019-08-09] MEDS: INSULIN LISPRO 300 UNITS/3 ML VIAL. SQ SCH (17:17)
[2019-08-09] MEDS: BISMUTH SUBSALICYLATE 262 MG/15 ML ORAL.SUSP 236ML BOTTLE. PO PRN (17:57)
[2019-08-09 18:44] VITALS: BP 96/51
[2019-08-09] MEDS: ATORVASTATIN CALCIUM 10 MG TABLET. PO SCH (20:15)
[2019-08-09] MEDS: INSULIN GLARGINE SYRINGE. SQ SCH (20:15)
[2019-08-09 22:27] VITALS: BP 95/55
[2019-08-10] VITALS (15 sets, daily range): BP systolic 116–137; BP diastolic 53–67
[2019-08-10] MEDS: IV NORMAL SALINE 1000ML BAG 1,000 ML IV SCH ×2 (01:20→16:23)
[2019-08-10 07:13] LABS: CALCIUM 7.7 mg/dL (8.5-10.1); CREATININE 1.5 mg/dL (0.6-1.0); POTASSIUM 4.1 mmol/L (3.5-5.1)
[2019-08-10] MEDS ORDERED: LIDOCAINE 1% PF 2 ML VIAL. ONE (07:38)
[2019-08-10] MEDS ORDERED: HEPARIN for ARTERIAL LINE 1,500 ML ONE (07:38)
[2019-08-10] MEDS ORDERED: IODIXANOL 320 MG/ML 100 ML VIAL. ONE (07:38)
[2019-08-10] MEDS ORDERED: VERAPAMIL 5 MG/2 ML VIAL. ONE (07:51)
[2019-08-10] MEDS ORDERED: fentaNYL PF VIAL 100 MCG/2 ML VIAL ONE (07:51)
[2019-08-10] MEDS ORDERED: MIDAZOLAM HCL/PF 2 MG/2 ML VIAL. ONE (07:51)
[2019-08-10] MEDS ORDERED: NITROGLYCERIN 200 MCG/2 ML SYRINGE FOR CATH/VASC LAB. ONE (07:51)
[2019-08-10] MEDS ORDERED: HEPARIN for IV BOLUS 10,000 UNIT/10 ML VIAL. ONE (07:51)
[2019-08-10] MEDS ORDERED: VERAPAMIL 5 MG/2 ML VIAL. IART ONE (08:00)
[2019-08-10] MEDS ORDERED: fentaNYL PF VIAL 100 MCG/2 ML VIAL IV ONE (08:00)
[2019-08-10] MEDS ORDERED: IODIXANOL 320 MG/ML 100 ML VIAL. IART ONE (08:00)
[2019-08-10] MEDS ORDERED: HEPARIN for IV BOLUS 10,000 UNIT/10 ML VIAL. IART ONE (08:00)
[2019-08-10] MEDS ORDERED: NITROGLYCERIN 200 MCG/2 ML SYRINGE FOR CATH/VASC LAB. IART ONE (08:00)
[2019-08-10] MEDS ORDERED: MIDAZOLAM HCL/PF 2 MG/2 ML VIAL. IV ONE (08:00)
[2019-08-10] MEDS: INSULIN LISPRO 300 UNITS/3 ML VIAL. SQ SCH ×3 (08:00→17:00)
[2019-08-10] MEDS ORDERED: LIDOCAINE 1% PF 2 ML VIAL. INJ ONE (08:00)
[2019-08-10] MEDS: IPRATRPIUM/ALBUTEROL 0.5/2.5MG 3 ML NEBU. NEB SCH ×4 (08:34→20:25)
--- NOTE | 2019-08-10 08:37 | PDOC ---
PULMONARY PROGRESS NOTES Subjective not more soa today Vitals Vital Signs Date Time Temp Pulse Resp B/P (MAP) Pulse Ox O2 Delivery O2 Flow Rate FiO2 08/10/19 08:00 81 08/10/19 02:30 98.6 18 117/56 (76) 92 Room Air 98.6 ROS: No Nausea, No Chest Pain, No Abdominal Pain, No Increase Cough General: Alert Lungs: Clear Cardiovascular: S1, S2 Abdomen: Soft Neuro Exam: Alert, Oriented, No Focal Findings Extremities: No Edema Labs Laboratory Tests Test 08/08/19 12:00 08/08/19 16:41 08/09/19 04:45 08/09/19 07:11 Glucose (Fingerstick) 211 mg/dL (70-99) 170 mg/dL (70-99) 141 mg/dL (70-99) Sodium Level 143 mmol/L (136-145) Potassium Level 3.3 mmol/L (3.5-5.1) Chloride Level 110 mmol/L (98-107) Carbon Dioxide Level 23 mmol/L (21-32) Anion Gap 10 (6-14) Blood Urea Nitrogen 34 mg/dL (7-20) Creatinine 1.8 mg/dL (0.6-1.0) Estimated GFR (Cockcroft-Gault) 27.6 Glucose Level 145 mg/dL (70-99) Calcium Level 7.9 mg/dL (8.5-10.1) Magnesium Level 2.5 mg/dL (1.8-2.4) Test 08/09/19 11:24 08/09/19 16:35 08/09/19 20:11 08/10/19 06:25 Glucose (Fingerstick) 171 mg/dL (70-99) 216 mg/dL (70-99) 148 mg/dL (70-99) Sodium Level 144 mmol/L (136-145) Potassium Level 4.1 mmol/L (3.5-5.1) Chloride Level 111 mmol/L (98-107) Carbon Dioxide Level 23 mmol/L (21-32) Anion Gap 10 (6-14) Blood Urea Nitrogen 25 mg/dL (7-20) Creatinine 1.5 mg/dL (0.6-1.0) Estimated GFR (Cockcroft-Gault) 34.0 Glucose Level 157 mg/dL (70-99) Calcium Level 7.7 mg/dL (8.5-10.1) Laboratory Tests Test 08/09/19 11:24 08/09/19 16:35 08/09/19 20:11 08/10/19 06:25 Glucose (Fingerstick) 171 mg/dL (70-99) 216 mg/dL (70-99) 148 mg/dL (70-99) Sodium Level 144 mmol/L (136-145) Potassium Level 4.1 mmol/L (3.5-5.1) Chloride Level 111 mmol/L (98-107) Carbon Dioxide Level 23 mmol/L (21-32) Anion Gap 10 (6-14) Blood Urea Nitrogen 25 mg/dL (7-20) Creatinine 1.5 mg/dL (0.6-1.0) Estimated GFR (Cockcroft-Gault) 34.0 Glucose Level 157 mg/dL (70-99) Calcium Level 7.7 mg/dL (8.5-10.1) Medications Active Scripts Medications Dose Route/Sig Max Daily Dose Days Date Category Oxybutynin Chloride Er (Oxybutynin Chloride) 10 Mg Tab.er.24 10 Mg PO DAILY 08/07/19 Reported Pravastatin Sodium 40 Mg Tablet 1 Tab PO QHS 10/17/18 Reported Protonix (Pantoprazole Sodium) 20 Mg Tablet.dr 40 Mg PO DAILY 10/17/18 Reported Tradjenta (Linagliptin) 5 Mg Tablet 5 Mg PO DAILY 10/17/18 Reported Levothyroxine Sodium 150 Mcg Tablet 150 Mcg PO DAILYAC 10/17/18 Reported Tresiba Flextouch U-200 (Insulin Degludec) 200 Unit/1 Ml Insuln.pen 20 Unit SQ HS 10/17/18 Reported Furosemide 20 Mg Tablet 1 Tab PO DAILY 10/17/18 Reported Vitamin D3 (Cholecalciferol (Vitamin D3)) 1,000 Unit Tablet 3,000 Unit PO DAILY 10/17/18 Reported Aspirin 81 Mg Tab.chew 1 Tab PO DAILY 10/17/18 Reported Alendronate Sodium 70 Mg Tablet 1 Tab PO WEEKLY 10/17/18 Reported Losartan Potassium 100 Mg Tablet 100 Mg PO DAILY 11/11/14 Reported Impression . IMPRESSION: 1. Progressive dyspnea secondary to acute exacerbation of chronic obstructive pulmonary disease/asthma. and CAD 2. Acute on chronic diastolic/systolic heart failure. 3. Urinary tract infection. 4. Tobacco dependence, in remission. 5. Hypertension. 6. Coronary artery disease with previous stent placement. 7. Other comorbidities as listed above. 8. Acute on chronic kidney failure. CORONARY ANGIOGRAPHY: LM is a large caliber vessel with normal angiographic appearance. LAD is a moderate caliber vessel with a patent mid stent and mild diffuse luminal irregularities of up to 30-40%. D1 is a small caliber vessel with proximal to mid 50% stenosis. LCx is a moderate caliber non-dominant vessel with a mid subtotal occlusion. The distal vessel is small in caliber and seen to fill via faint left to left collaterals. OM1 is a moderate caliber vessel with a patent previously placed stent. RCA is a large caliber dominant vessel with patent previously placed proximal and mid stents. RPDA is a moderate caliber vessels with normal angiographic appearance. RPL is a small caliber vessel with an ostial occlusion, likely from previously placed stents and is seen to fill via faint right to right collaterals. Given lack of any EKG changes and troponin elevation, further intervention on the chronic total occlusions was deferred. Conclusion 1. Acute on chronic diastolic HF. LVEDP 20 mm Hg 2. Three vessel coronary disease. 3. Patent stents in the LAD/RCA and LCx. 4. Chronic total occlusions of small caliber branches in the Lcx and RCA Recommendations Aggressive Medical Therapy Plan . MEDICAL MANAGEMENT FOR CAD WILL CHEK PFT NOT SURE HOW MUCH COPD IS CONTRIBUTING TO HER SYMPTOMS, I SUSPECT LITTLE 6 MIN WALK CARLITOS BALLARD MD Aug 10, 2019 08:37
--- NOTE | 2019-08-10 09:03 | CARD ---
MR#: [id number] Date of Study: 08/10/2019 Ordering Physician: NEGRITO CACERES, Referring Physician: NEGRITO CACERES, Tech: RT Anitra (R) ROBERT APPROVED REPORT Technologist: RT Anitra (R) ROBERT Nurse: Senia Hurd RN Procedure(s) performed: FLOURO TIME 4.1 MINUTES DOSE 28.90 Gycm2 CONTRAST 38 CC'S VISIPAQUE MODERATE SEDATION 20 MINUTES LHC, Coronary angiography HISTORY The patient is a 74 year-old female with a history of : coronary artery disease, hypertension, dyslip idemia. INDICATION The indication(s) include : unstable angina , dyspnea. CS Clinical Frailty Scale [facility] Clinical Frailty Scale: Moderately Frail Heart Failure Heart Failure: Yes If Yes, Newly Diagnosed: No If Yes, HF Type: Diastolic If Yes, NYHA Class: Class II PROCEDURE NARRATIVE CLININCAL INDICATIONS: 1. Refractory exertional dyspnea and chest pain in a patient with prior CAD/PCI. INFORMED CONSENT: After explaining the risks and benefits of the procedure and alternatives, informed consent was obtained. The patient was brought electively to the cardiac catheterization lab. A timeout was performed confi rming the patient's name, date of , procedure, and site of procedure. All necessary personnel w ere wearing the appropriate protective equipment and radiation monitor devices. (See nursing notes for medications administered). ACCESS: The right wrist was sterilely prepped and draped in the usual fashion. The right wrist was infiltrat ed with 1 mL of 2% lidocaine for subcutaneous anesthesia. A 6 Portuguese Terumo glide sheath was inserte d into the right radial artery without difficulty. CORONARY ANGIOGRAPHY: Right and left coronary angiography was performed using a 6Fr TIG 4.0 catheter. Left ventricular en d diastolic pressure was obtained with a TIG catheter and pullback was performed. All catheter excha nges and advancements were performed over a guidewire. CLOSURE: At case completion the right radial sheath was removed and a Terumo radial band was applied with 13 m l of air. COMPLICATIONS: The patient tolerated the procedure well and there were no immediate complications. FINDINGS: HEMODYNAMICS: LVEDP 20 mm Hg No gradient on LV to aortic pullback. AO: 128/78 LEFT VENTRICULOGRAM: Deferred due to renal insufficiency. CORONARY ANGIOGRAPHY: LM is a large caliber vessel with normal angiographic appearance. LAD is a moderate caliber vessel with a patent mid stent and mild diffuse luminal irregularities of u p to 30-40%. D1 is a small caliber vessel with proximal to mid 50% stenosis. LCx is a moderate caliber non-dominant vessel with a mid subtotal occlusion. The distal vessel is sma ll in caliber and seen to fill via faint left to left collaterals. OM1 is a moderate caliber vessel with a patent previously placed stent. RCA is a large caliber dominant vessel with patent previously placed proximal and mid stents. RPDA is a moderate caliber vessels with normal angiographic appearance. RPL is a small caliber vessel with an ostial occlusion, likely from previously placed stents and is s een to fill via faint right to right collaterals. Given lack of any EKG changes and troponin elevation, further intervention on the chronic total occlu sions was deferred. Conclusion 1. Acute on chronic diastolic HF. LVEDP 20 mm Hg 2. Three vessel coronary disease. 3. Patent stents in the LAD/RCA and LCx. 4. 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
[2019-08-10] MEDS: guaiFENesin DM 200MG/20MG 10 ML SYRUP PO PRN ×2 (09:21→23:27)
[2019-08-10] MEDS: PANTOPRAZOLE 40 MG TABLET.DR. PO SCH (09:21)
[2019-08-10] MEDS: OXYBUTYNIN CHLORIDE 5 MG TABLET PO SCH ×2 (09:22→23:27)
[2019-08-10] MEDS: LOSARTAN POTASSIUM 50 MG TABLET. PO SCH (09:22)
[2019-08-10] MEDS: ASPIRIN CHEWABLE 81 MG TABLET. PO SCH (09:22)
[2019-08-10] MEDS: LINAGLIPTIN 5 MG TABLET PO SCH (09:22)
[2019-08-10] MEDS: CHOLECALCIFEROL (VITAMIN D3) 1,000 UNIT TABLET PO SCH (09:22)
[2019-08-10] MEDS: ASCORBIC ACID 500 MG TABLET PO SCH (09:22)
[2019-08-10] MEDS: LACTOBACILLUS RHAMNOSUS GG 1 CAPSULE. PO SCH ×2 (09:22→23:27)
[2019-08-10] MEDS: MULTIVITAMIN I-VITE TABLET. PO SCH (09:22)
--- NOTE | 2019-08-10 10:59 | PDOC ---
PROGRESS NOTES Chief Complaint Chief Complaint Chest pain and dyspnea - concerning this is anginal, planned [facility] THOMAS on CKD - nephrology consulted. Has baseline Cr 1.5-1.7, does not follow nephrology. Will give IVF and hold diuretics prior to [facility] UTI - had been on vanc/zosyn at [facility], change to rocephin based on voss- sensitive e. coli COPD - pulm following Lower extremity ulcers - they are painless, have been present 2 months. Concerning, she is amenable to biopsy. History of Present Illness History of Present Illness Ms Chavez is a 74 yo female w/ PMHx CHF, coronary stent placement for coronary artery disease, hypercholesterolemia, hypertension, COPD, asthma, GERD, hypothyroidism, chronic anemia, insomnia transferred from [place] for cough, shortness of breath, and dizziness. Longstanding complaints, but has worsened. Follows with Dr. Somers of cardiology. No known fevers, but was febrile upon arrival. Yesterday, had episode of aching in her left chest. Radiated down and around to her abdomen. [place] slightly nauseated and was dizzy. No diaphoresis or palpitations. No LE edema. She does have chronic LE wounds that are not painful but are large and ulcerated. 08/09: Had some low BP yesterday, improved with IVF and holding antihypertensives. Asymptomatic. Still a bit short of breath, chest pain improved somewhat. She is feeling better today. Still a bit short of breath with some chest discomfort. Drowsy. Otherwise no complaints. NPO for cardiac cath today. Vitals Vitals Vital Signs Date Time Temp Pulse Resp B/P (MAP) Pulse Ox O2 Delivery O2 Flow Rate FiO2 08/10/19 09:22 84 117/53 08/10/19 08:42 11 98 Nasal Cannula 2.0 08/10/19 02:30 98.6 98.6 Physical Exam General: Alert, Cooperative Lungs: Clear Abdomen: Normal bowel sounds, Soft Extremities: No clubbing, No edema Skin: No rashes Labs LABS Laboratory Tests Test 08/09/19 11:24 08/09/19 16:35 08/09/19 20:11 08/10/19 06:25 Glucose (Fingerstick) 171 mg/dL (70-99) 216 mg/dL (70-99) 148 mg/dL (70-99) Sodium Level 144 mmol/L (136-145) Potassium Level 4.1 mmol/L (3.5-5.1) Chloride Level 111 mmol/L (98-107) Carbon Dioxide Level 23 mmol/L (21-32) Anion Gap 10 (6-14) Blood Urea Nitrogen 25 mg/dL (7-20) Creatinine 1.5 mg/dL (0.6-1.0) Estimated GFR (Cockcroft-Gault) 34.0 Glucose Level 157 mg/dL (70-99) Calcium Level 7.7 mg/dL (8.5-10.1) Test 08/10/19 09:19 Glucose (Fingerstick) 121 mg/dL (70-99) Assessment and Plan Assessmemt and Plan Problems Medical Problems: (1) THOMAS (acute kidney injury) Status: Acute (2) Asthma Status: Chronic (3) Chest pain Status: Acute (4) CKD (chronic kidney disease), stage III Status: Chronic (5) COPD (chronic obstructive pulmonary disease) Status: Chronic (6) Dyspnea Status: Acute (7) Leg ulcer Status: Chronic (8) UTI (urinary tract infection) Status: Acute Comment Review of Relevant I have reviewed the following items arian (where applicable) has been applied. Labs Laboratory Tests Test 08/08/19 12:00 08/08/19 16:41 08/09/19 04:45 08/09/19 07:11 Glucose (Fingerstick) 211 mg/dL (70-99) 170 mg/dL (70-99) 141 mg/dL (70-99) Sodium Level 143 mmol/L (136-145) Potassium Level 3.3 mmol/L (3.5-5.1) Chloride Level 110 mmol/L (98-107) Carbon Dioxide Level 23 mmol/L (21-32) Anion Gap 10 (6-14) Blood Urea Nitrogen 34 mg/dL (7-20) Creatinine 1.8 mg/dL (0.6-1.0) Estimated GFR (Cockcroft-Gault) 27.6 Glucose Level 145 mg/dL (70-99) Calcium Level 7.9 mg/dL (8.5-10.1) Magnesium Level 2.5 mg/dL (1.8-2.4) Test 08/09/19 11:24 08/09/19 16:35 08/09/19 20:11 08/10/19 06:25 Glucose (Fingerstick) 171 mg/dL (70-99) 216 mg/dL (70-99) 148 mg/dL (70-99) Sodium Level 144 mmol/L (136-145) Potassium Level 4.1 mmol/L (3.5-5.1) Chloride Level 111 mmol/L (98-107) Carbon Dioxide Level 23 mmol/L (21-32) Anion Gap 10 (6-14) Blood Urea Nitrogen 25 mg/dL (7-20) Creatinine 1.5 mg/dL (0.6-1.0) Estimated GFR (Cockcroft-Gault) 34.0 Glucose Level 157 mg/dL (70-99) Calcium Level 7.7 mg/dL (8.5-10.1) Test 08/10/19 09:19 Glucose (Fingerstick) 121 mg/dL (70-99) Laboratory Tests Test 08/09/19 11:24 08/09/19 16:35 08/09/19 20:11 08/10/19 06:25 Glucose (Fingerstick) 171 mg/dL (70-99) 216 mg/dL (70-99) 148 mg/dL (70-99) Sodium Level 144 mmol/L (136-145) Potassium Level 4.1 mmol/L (3.5-5.1) Chloride Level 111 mmol/L (98-107) Carbon Dioxide Level 23 mmol/L (21-32) Anion Gap 10 (6-14) Blood Urea Nitrogen 25 mg/dL (7-20) Creatinine 1.5 mg/dL (0.6-1.0) Estimated GFR (Cockcroft-Gault) 34.0 Glucose Level 157 mg/dL (70-99) Calcium Level 7.7 mg/dL (8.5-10.1) Test 08/10/19 09:19 Glucose (Fingerstick) 121 mg/dL (70-99) Medications Current Medications Aspirin (Children'S Aspirin) 81 mg DAILY PO Last administered on 08/10/19at 09:22; Start 08/08/19 at 09:00 Vitamin D (Vitamin D3) 3,000 unit DAILY PO Last administered on 08/10/19at 09:22; Start 08/08/19 at 09:00 Furosemide (Lasix) 20 mg DAILY PO Last administered on 08/09/19 08:27; Start 08/08/19 at 09:00; Stop 08/09/19 at 10:46; Status DC Levothyroxine Sodium (Synthroid) 150 mcg DAILYAC PO Last administered on 08/09/19 07:11; Start 08/08/19 at 07:30 Linagliptin (Tradjenta) 5 mg DAILY PO Last administered on 08/10/19 09:22; Start 08/08/19 at 09:00 Non-Formulary Medication (Alendronate Sodium ) 1 tab WEEKLY PO ; Start 08/14/19 at 09:00; Status UNV Insulin Glargine (Lantus Syringe) 20 unit QHS SQ Last administered on 08/09/19 20:15; Start 08/07/19 at 21:00 Losartan Potassium (Cozaar) 100 mg DAILY PO Last administered on 08/08/19 08:50; Start 08/08/19 at 09:00; Stop 08/08/19 at 16:48; Status DC Oxybutynin Chloride (Ditropan) 5 mg BID PO Last administered on 08/10/19 09:22; Start 08/07/19 at 21:00 Pantoprazole Sodium (Protonix) 40 mg DAILYAC PO Last administered on 08/10/19 09:21; Start 08/08/19 at 07:30 Atorvastatin Calcium (Lipitor) 10 mg QHS PO Last administered on 08/09/19 20:1 5; Start 08/07/19 at 21:00 Sodium Chloride 1,000 ml @ 100 mls/hr 1X ONCE IV Last administered on 08/07/19 13:21; Start 08/07/19 at 13:00; Stop 08/07/19 at 22:59; Status DC Piperacillin Sod/ Tazobactam Sod (Zosyn Per Pharmacy) 1 each PRN DAILY PRN MC SEE COMMENTS; Start 08/07/19 at 13:15; Stop 08/09/19 at 12:48; Status DC Enoxaparin Sodium (Lovenox Per Pharmacy Prophylaxis Dosing) 1 each PRN DAILY PRN MC SEE COMMENTS; Start 08/07/19 at 13:15 Guaifenesin (Robitussin Dm) 10 ml PRN Q6HRS PRN PO COUGH Last administered on 08/10/19 09:21; Start 08/07/19 at 13:30 Throat Lozenges (Cepacol Sore Throat Lozenge) 1 sylvia PRN Q2HRS PRN PO SORE THROAT Last administered on 08/08/19 08:50; Start 08/07/19 at 13:30 Albuterol/ Ipratropium (Duoneb) 3 ml 1X ONCE NEB Last administered on 08/07/19 13:30; Start 08/07/19 at 13:30; Stop 08/07/19 at 13:32; Status DC Albuterol/ Ipratropium (Duoneb) 3 ml RTQID NEB Last administered on 08/09/19 20:16; Start 08/07/19 at 16:00 Influenza Virus Vaccine Quadrival (Afluria Quad 2019-20 (3yr Up) Syringe) 0.5 ml ONCE ONCE VAX IM ; Start 08/07/19 at 21:00; Stop 08/07/19 at 21:01; Status DC Enoxaparin Sodium (Lovenox 30mg Syringe) 30 mg Q24H SQ Last administered on 08/09/19 13:04; Start 08/07/19 at 14:00 Piperacillin Sod/ Tazobactam Sod 2.25 gm/Sodium Chloride 50 ml @ 100 mls/hr Q6HRS IV Last administered on 08/09/19 11:08; Start 08/07/19 at 14:00; Stop 08/09/19 at 12:48; Status DC Multivitamins/ Minerals (I-Sravani) 1 tab DAILY PO Last administered on 08/10/19 09:22; Start 08/07/19 at 18:30 Ascorbic Acid (Vitamin C) 500 mg DAILY PO Last administered on 08/10/19 09:22; Start 08/07/19 at 18:30 Magnesium Sulfate 50 ml @ 25 mls/hr 1X ONCE IV Last administered on 08/08/19 16:33; Start 08/08/19 at 16:00; Stop 08/08/19 at 17:59; Status DC Lactobacillus Rhamnosus (Culturelle) 1 cap BID PO Last administered on 08/10/19 09:22; Start 08/08/19 at 21:00 Losartan Potassium (Cozaar) 25 mg DAILY PO Last administered on 11/4/19at 09:22; Start 08/09/19 at 09:00 Sodium Chloride 1,000 ml @ 1,000 mls/hr 1X ONCE IV Last administered on 08/08/19at 17:00; Start 08/08/19 at 17:00; Stop 08/08/19 at 17:59; Status DC Acetaminophen (Tylenol) 650 mg PRN Q6HRS PRN PO MILD PAIN 1-3 Last administered on 08/09/19at 07:19; Start 08/09/19 at 07:15 Potassium Chloride (Klor-Con) 40 meq 1X ONCE PO Last administered on 08/09/19at 11:07; Start 08/09/19 at 11:00; Stop 08/09/19 at 11:01; Status DC Sodium Chloride 1,000 ml @ 75 mls/hr [id number] IV Last administered on 08/10/19at 01:20; Start 08/09/19 at 12:00 Acetaminophen/ Hydrocodone Bitart (Lortab 5/325) 1 tab PRN Q6HRS PRN PO MODERATE TO SEVERE PAIN Last administered on 08/09/19at 12:13; Start 08/09/19 at 12:15 Ceftriaxone Sodium (Rocephin) 1 gm Q24H IVP ; Start 08/10/19 at 18:00; Stop 08/11/19 at 18:01 Insulin Human Lispro (HumaLOG) 0-7 UNITS TIDWMEALS SQ Last administered on 08/09/19at 17:17; Start 08/09/19 at 17:00 Dextrose (Dextrose 50%-Water Syringe) 12.5 gm PRN Q15MIN PRN IV SEE COMMENTS; Start 08/09/19 at 17:00 Bismuth Subsalicylate (Pepto-Bismol) 262 mg PRN Q4HRS PRN PO DIARRHEA Last administered on 08/09/19at 17:57; Start 08/09/19 at 18:00 Iodixanol (Visipaque 320) 100 ml STK-MED ONCE .ROUTE ; Start 08/10/19 at 07:38; Stop 08/10/19 at 07:38; Status DC Lidocaine HCl (Xylocaine-Mpf 1% 2ml Vial) 2 ml STK-MED ONCE .ROUTE ; Start 08/10/19 at 07:38; Stop 08/10/19 at 07:38; Status DC Heparin Sodium/ Sodium Chloride 1,500 ml @ As Directed STK-MED ONCE .ROUTE ; Start 08/10/19 at 07:38; Stop 08/10/19 at 07:38; Status DC Fentanyl Citrate (Fentanyl 2ml Vial) 100 mcg STK-MED ONCE .ROUTE ; Start 08/10/19 at 07:51; Stop 08/10/19 at 07:51; Status DC Midazolam HCl (Versed) 2 mg STK-MED ONCE .ROUTE ; Start 08/10/19 at 07:51; Stop 08/10/19 at 07:51; Status DC Heparin Sodium (Porcine) (Heparin Sodium) 10,000 unit STK-MED ONCE .ROUTE ; Start 08/10/19 at 07:51; Stop 08/10/19 at 07:51; Status DC Verapamil HCl (Verapamil) 5 mg STK-MED ONCE .ROUTE ; Start 08/10/19 at 07:51; Stop 08/10/19 at 07:52; Status DC Nitroglycerin (Nitroglycerin) 200 mcg STK-MED ONCE .ROUTE ; Start 08/10/19 at 07:51; Stop 08/10/19 at 07:52; Status DC Nitroglycerin (Nitroglycerin) 200 mcg 1X ONCE IART Last administered on 08/10/19at 08:00; Start 08/10/19 at 08:00; Stop 08/10/19 at 08:03; Status DC Verapamil HCl (Verapamil) 2.5 mg 1X ONCE IART Last administered on 08/10/19at 08:00; Start 08/10/19 at 08:00; Stop 08/10/19 at 08:03; Status DC Heparin Sodium (Porcine) (Heparin Sodium) 2,500 unit 1X ONCE IART Last administered on 08/10/19at 08:00; Start 08/10/19 at 08:00; Stop 08/10/19 at 08:03; Status DC Heparin Sodium/ Sodium Chloride (HEPARIN for ARTERIAL LINE FLUSH) 1,000 unit 1X ONCE IART Last administered on 08/10/19at 08:00; Start 08/10/19 at 08:00; Stop 08/10/19 at 08:03; Status DC Heparin Sodium/ Sodium Chloride (HEPARIN for ARTERIAL LINE FLUSH) 1,000 unit 1X ONCE IART Last administered on 08/10/19at 08:00; Start 08/10/19 at 08:00; Stop 08/10/19 at 08:03; Status DC Midazolam HCl (Versed) 2 mg 1X ONCE IV Last administered on 08/10/19at 08:00; Start 08/10/19 at 08:00; Stop 08/10/19 at 08:03; Status DC Fentanyl Citrate (Fentanyl 2ml Vial) 100 mcg 1X ONCE IV Last administered on 08/10/19at 08:00; Start 08/10/19 at 08:00; Stop 08/10/19 at 08:04; Status DC Iodixanol (Visipaque 320) 100 ml 1X ONCE IART Last administered on 08/10/19at 08:00; Start 08/10/19 at 08:00; Stop 08/10/19 at 08:04; Status DC Lidocaine HCl (Xylocaine-Mpf 1% 2ml Vial) 2 ml 1X ONCE INJ Last administered on 08/10/19at 08:00; Start 08/10/19 at 08:00; Stop 08/10/19 at 08:04; Status DC Active Scripts Active Reported Oxybutynin Chloride Er (Oxybutynin Chloride) 10 Mg Tab.er.24 10 Mg PO DAILY Pravastatin Sodium 40 Mg Tablet 1 Tab PO QHS Protonix (Pantoprazole Sodium) 20 Mg Tablet.dr 40 Mg PO DAILY Tradjenta (Linagliptin) 5 Mg Tablet 5 Mg PO DAILY Levothyroxine Sodium 150 Mcg Tablet 150 Mcg PO DAILYAC Tresiba Flextouch U-200 (Insulin Degludec) 200 Unit/1 Ml Insuln.pen 20 Unit SQ HS Furosemide 20 Mg Tablet 1 Tab PO DAILY Vitamin D3 (Cholecalciferol (Vitamin D3)) 1,000 Unit Tablet 3,000 Unit PO DAILY Aspirin 81 Mg Tab.chew 1 Tab PO DAILY Alendronate Sodium 70 Mg Tablet 1 Tab PO WEEKLY Losartan Potassium 100 Mg Tablet 100 Mg PO DAILY Vitals/I & O Vital Sign - Last 24 Hours 08/09/19 08/09/19 08/09/19 08/09/19 11:12 12:13 13:13 14:18 Temp 97.9 97.9 Pulse 67 Resp 16 B/P (MAP) 104/51 (68) Pulse Ox 97 O2 Delivery Room Air Room Air Room Air Room Air 08/09/19 08/09/19 08/09/19 11/3/19 15:40 18:44 20:00 20:19 Temp 98.4 98.4 Pulse 77 Resp 16 B/P (MAP) 96/51 (66) Pulse Ox 95 100 O2 Delivery Room Air Room Air Room Air Room Air 08/09/19 08/10/19 08/10/19 08/10/19 22:27 02:30 08:00 08:00 Temp 98.4 98.6 98.4 98.6 Pulse 80 84 81 Resp 16 18 16 B/P (MAP) 95/55 (68) 117/56 (76) Pulse Ox 96 92 O2 Delivery Room Air Room Air 08/10/19 08/10/19 08/10/19 08:00 08:42 09:22 Pulse 73 84 Resp 11 B/P (MAP) 117/53 Pulse Ox 98 O2 Delivery Room Air Nasal Cannula O2 Flow Rate 2.0 Intake and Output 08/09/19 08/09/19 08/10/19 15:00 23:00 07:00 Intake Total 240 ml 1820 ml 1650 ml Output Total 450 ml 1000 ml Balance 240 ml 1370 ml 650 ml Nutrition Consultation Dietary Evaluation: Recommendations by RD: Increase Calorie Intake, Protein supplementation Comments: REC cardiac/ADA diet s/p cath REC Glucerna w/dinner (strawberry) REC MVI, Vit C - wound healing Expected Outcomes/Goals: PO intake to meet >75% est needs Interpretation of weight loss: >7.5% in 3 months Malnutrition Findings: Food and Nutrition Intake (Mod: <75% est energy req 7days Weight Status: Obese JUDY REYNAGA MD Aug 10, 2019 10:58
[2019-08-10] MEDS: LEVOTHYROXINE 150 MCG TABLET PO SCH (11:14)
--- NOTE | 2019-08-10 12:05 | PDOC ---
SUBJECTIVE ROS Asked to see for acute on chronic renal insufficiency. Patient just back from cardiac catheter. Denies any new complaints at this time. CVS: no Orthopnea, no CP RESP: no SOB, no LOPEZ GI: no Nausea, no Vomiting : no Dysuria, no Urgency OBJECTIVE Vital Signs Vital Signs Date Time Temp Pulse Resp B/P (MAP) Pulse Ox O2 Delivery O2 Flow Rate FiO2 08/10/19 10:44 97.8 69 18 123/58 (79) 92 Room Air 97.8 08/10/19 08:42 2.0 I & 0 Intake and Output 08/10/19 06:59 Intake Total 3710 ml Output Total 1450 ml Balance 2260 ml Intake Oral 2360 ml IV Total 1350 ml Output Urine Total 1450 ml PHYSICAL EXAM Physical Exam GEN: Awake, Oriented x 3, In no distress, mild facial pallor cannot be ruled out EYES: Vision Unchanged, Conjunctiva Normal EN: No EN Drainage, Mucous Membranes no NECK: no JVD, + JVP, Supple, no Thyromegaly CVS: S1S2, ? Murmur, No Gallop, No Rub,no Edema RESP: no Rales, no Rhonchi,no Acc. Muscle Use GI: BS + ve, NO Bruit, Non Tender, Non Distended : no CVA tenderness, no Suprapubic Tenderness DIAGNOSIS/ASSESSMENT Assessment & Plan ARF: Creatinine is slightly better with IV fluids as ordered. Current fluid and E-lyte status does not necessitate emergent need for dialysis. Will re- evaluate for dialysis in the am. Renal ultrasound as ordered. Underlying chronic kidney disease cannot be ruled out ANEMIA; in the setting of pancytopenia. Consider hematology evaluation. Workup for paraprotein as ordered. Check iron profile for completion. HTN: Current BP meds as reviewed. Defer to cardiology to optimize from that standpoint Lowish calcium presumably associated with low albumin. Vitamin D deficiency may be current pitting to the same also. If discharged, follow-up with us in 2-4 weeks Discussed Plan of Care with pt at bedside COMMENT/RELEVANT DATA Meds Current Medications Medications (Trade) Dose Ordered Sig/Daya Start Time Stop Time Status Last Admin Dose Admin Acetaminophen (Tylenol) 650 mg PRN Q6HRS PRN 08/09/19 07:15 08/09/19 07:19 650 MG Acetaminophen/ Hydrocodone Bitart (Lortab 5/325) 1 tab PRN Q6HRS PRN 08/09/19 12:15 08/09/19 12:13 1 TAB Albuterol/ Ipratropium (Duoneb) 3 ml RTQID 08/07/19 16:00 08/09/19 20:16 3 ML Ascorbic Acid (Vitamin C) 500 mg DAILY 08/07/19 18:30 08/10/19 09:22 500 MG Aspirin (Children'S Aspirin) 81 mg DAILY 08/08/19 09:00 08/10/19 09:22 81 MG Atorvastatin Calcium (Lipitor) 10 mg QHS 08/07/19 21:00 08/09/19 20:15 10 MG Bismuth Subsalicylate (Pepto-Bismol) 262 mg PRN Q4HRS PRN 08/09/19 18:00 08/09/19 17:57 262 MG Ceftriaxone Sodium (Rocephin) 1 gm Q24H 08/10/19 18:00 08/11/19 18:01 Dextrose (Dextrose 50%-Water Syringe) 12.5 gm PRN Q15MIN PRN 08/09/19 17:00 Enoxaparin Sodium (Lovenox 30mg Syringe) 30 mg Q24H 08/07/19 14:00 08/09/19 13:04 30 MG Enoxaparin Sodium (Lovenox Per Pharmacy Prophylaxis Dosing) 1 each PRN DAILY PRN 08/07/19 13:15 Fentanyl Citrate (Fentanyl 2ml Vial) 100 mcg 1X ONCE 08/10/19 08:00 08/10/19 08:04 DC 08/10/19 08:00 50 MCG Furosemide (Lasix) 20 mg DAILY 08/08/19 09:00 08/09/19 10:46 DC 08/09/19 08:27 20 MG Guaifenesin (Robitussin Dm) 10 ml PRN Q6HRS PRN 08/07/19 13:30 08/10/19 09:21 10 ML Heparin Sodium (Porcine) (Heparin Sodium) 2,500 unit 1X ONCE 08/10/19 08:00 08/10/19 08:03 DC 08/10/19 08:00 2,500 UNIT Heparin Sodium/ Sodium Chloride (HEPARIN for ARTERIAL LINE FLUSH) 1,000 unit 1X ONCE 08/10/19 08:00 08/10/19 08:03 DC 08/10/19 08:00 1,000 UNIT Influenza Virus Vaccine Quadrival (Afluria Quad 2019-20 (3yr Up) Syringe) 0.5 ml ONCE ONCE 08/07/19 21:00 08/07/19 21:01 DC Insulin Glargine (Lantus Syringe) 20 unit QHS 08/07/19 21:00 08/09/19 20:15 20 UNIT Insulin Human Lispro (HumaLOG) 0-7 UNITS TIDWMEALS 08/09/19 17:00 08/09/19 17:17 4 UNITS Iodixanol (Visipaque 320) 100 ml 1X ONCE 08/10/19 08:00 08/10/19 08:04 DC 08/10/19 08:00 38 ML Lactobacillus Rhamnosus (Culturelle) 1 cap BID 08/08/19 21:00 08/10/19 09:22 1 CAP Levothyroxine Sodium (Synthroid) 150 mcg DAILYAC 08/08/19 07:30 08/10/19 11:14 150 MCG Lidocaine HCl (Xylocaine-Mpf 1% 2ml Vial) 2 ml 1X ONCE 08/10/19 08:00 08/10/19 08:04 DC 08/10/19 08:00 1 ML Linagliptin (Tradjenta) 5 mg DAILY 08/08/19 09:00 08/10/19 09:22 5 MG Losartan Potassium (Cozaar) 25 mg DAILY 08/09/19 09:00 08/10/19 09:22 25 MG Magnesium Sulfate 50 ml @ 25 mls/hr 1X ONCE 08/08/19 16:00 08/08/19 17:59 DC 08/08/19 16:33 25 MLS/HR Midazolam HCl (Versed) 2 mg 1X ONCE 08/10/19 08:00 08/10/19 08:03 DC 08/10/19 08:00 2 MG Multivitamins/ Minerals (I-Sravani) 1 tab DAILY 08/07/19 18:30 08/10/19 09:22 1 TAB Nitroglycerin (Nitroglycerin) 200 mcg 1X ONCE 08/10/19 08:00 08/10/19 08:03 DC 08/10/19 08:00 200 MCG Non-Formulary Medication (Alendronate Sodium ) 1 tab WEEKLY 08/14/19 09:00 UNV Oxybutynin Chloride (Ditropan) 5 mg BID 08/07/19 21:00 08/10/19 09:22 5 MG Pantoprazole Sodium (Protonix) 40 mg DAILYAC 08/08/19 07:30 08/10/19 09:21 40 MG Piperacillin Sod/ Tazobactam Sod (Zosyn Per Pharmacy) 1 each PRN DAILY PRN 08/07/19 13:15 08/09/19 12:48 DC Piperacillin Sod/ Tazobactam Sod 2.25 gm/Sodium Chloride 50 ml @ 100 mls/hr Q6HRS 08/07/19 14:00 08/09/19 12:48 DC 08/09/19 11:08 100 MLS/HR Potassium Chloride (Klor-Con) 40 meq 1X ONCE 08/09/19 11:00 08/09/19 11:01 DC 08/09/19 11:07 40 MEQ Sodium Chloride 1,000 ml @ 75 mls/hr [id number] 08/09/19 12:00 08/10/19 01:20 75 MLS/HR Throat Lozenges (Cepacol Sore Throat Lozenge) 1 jero PRN Q2HRS PRN 08/07/19 13:30 08/08/19 08:50 1 JERO Verapamil HCl (Verapamil) 2.5 mg 1X ONCE 08/10/19 08:00 08/10/19 08:03 DC 08/10/19 08:00 2.5 MG Vitamin D (Vitamin D3) 3,000 unit DAILY 08/08/19 09:00 08/10/19 09:22 3,000 UNIT Lab Laboratory Tests Test 08/09/19 16:35 08/09/19 20:11 08/10/19 06:25 08/10/19 09:19 Glucose (Fingerstick) 216 mg/dL (70-99) 148 mg/dL (70-99) 121 mg/dL (70-99) Sodium Level 144 mmol/L (136-145) Potassium Level 4.1 mmol/L (3.5-5.1) Chloride Level 111 mmol/L (98-107) Carbon Dioxide Level 23 mmol/L (21-32) Anion Gap 10 (6-14) Blood Urea Nitrogen 25 mg/dL (7-20) Creatinine 1.5 mg/dL (0.6-1.0) Estimated GFR (Cockcroft-Gault) 34.0 Glucose Level 157 mg/dL (70-99) Calcium Level 7.7 mg/dL (8.5-10.1) Results All relevant outside records, renal labs, imaging studies, telemetry/EKG's were reviewed. SHAILESH BEAULIEU MD Aug 10, 2019 12:05
[2019-08-10] MEDS ORDERED: MAGNESIUM SULFATE 2GM 50 ML IV PRN (12:15)
--- NOTE | 2019-08-10 13:33 | NUR ---
SS following for discharge planning. SS reviewed pt chart. Pt is from home with spouse and is currently on room air. PT recommended no needs at this time. SS will continue to follow for discharge planning.
[2019-08-10] MEDS: ENOXAPARIN 30 MG/0.3 ML SYRINGE. SQ SCH (16:22)
--- NOTE | 2019-08-10 16:22 | RAD ---
EXAM: Renal sonogram. HISTORY: Renal insufficiency. TECHNIQUE: Sonographic imaging of the kidneys and bladder was performed. COMPARISON: None. FINDINGS: The right kidney measures 8.5 cm [id number]. The left kidney measures 9.4 cm [id number]. No solid or cystic renal lesion is seen. There is right renal cortical thinning. The bladder is nondistended. IMPRESSION: 1. Mild right renal atrophy with associated cortical thinning. 2. No acute finding. Electronically signed by: Nikia Kilgore MD (08/10/2019 4:19 PM) [place] [id number]
[2019-08-10] MEDS: cefTRIAXone IV Push 1 GM VIAL. IVP SCH (17:42)
--- NOTE | 2019-08-10 22:30 | NUR ---
long placed with sterile technique. pt tolerated with min discomfort. lsample sent from earlier order with discarded urine. crn
[2019-08-10 23:12] LABS: BILIRUBIN,URINE NEGATIVE (NEG); CLARITY,URINE CLEAR; COLOR,URINE YELLOW; NITRITE,URINE NEGATIVE (NEG); PH,URINE 5.5; PROTEIN,URINE NEGATIVE (NEG-TRACE); UROBILINOGEN,URINE 0.2 mg/dL (0.2 mg/dL)
[2019-08-10] MEDS: ATORVASTATIN CALCIUM 10 MG TABLET. PO SCH (23:27)
[2019-08-10] MEDS: INSULIN GLARGINE SYRINGE. SQ SCH (23:31)
[2019-08-10 23:36] LABS: BACTERIA,URINE 0 /HPF (0-FEW); RBC,URINE 0 /HPF (0-2); SQUAMOUS EPITHELIAL CELL,UR OCC /LPF
[2019-08-10 23:55] LABS: CREATININE,RANDOM URINE 66.8 mg/dL (Not Establ.)
[2019-08-11 03:30] VITALS: BP 117/56
[2019-08-11 05:00] LABS: ALBUMIN 2.3 g/dL (3.4-5.0); CALCIUM 7.9 mg/dL (8.5-10.1); CREATININE 1.2 mg/dL (0.6-1.0); MAGNESIUM 2.1 mg/dL (1.8-2.4); PHOSPHORUS 3.4 mg/dL (2.6-4.7); POTASSIUM 3.9 mmol/L (3.5-5.1)
[2019-08-11 07:00] VITALS: BP 110/55
[2019-08-11] MEDS: INSULIN LISPRO 300 UNITS/3 ML VIAL. SQ SCH ×3 (08:00→17:00)
[2019-08-11] MEDS: IPRATRPIUM/ALBUTEROL 0.5/2.5MG 3 ML NEBU. NEB SCH ×4 (08:01→20:29)
[2019-08-11] MEDS: MULTIVITAMIN I-VITE TABLET. PO SCH (09:21)
[2019-08-11] MEDS: BENZOCAINE/MENTHOL LOZENGE. PO PRN (09:21)
[2019-08-11] MEDS: PANTOPRAZOLE 40 MG TABLET.DR. PO SCH (09:21)
[2019-08-11] MEDS: OXYBUTYNIN CHLORIDE 5 MG TABLET PO SCH ×2 (09:22→20:48)
[2019-08-11] MEDS: ASPIRIN CHEWABLE 81 MG TABLET. PO SCH (09:22)
[2019-08-11] MEDS: ASCORBIC ACID 500 MG TABLET PO SCH (09:22)
[2019-08-11] MEDS: LINAGLIPTIN 5 MG TABLET PO SCH (09:22)
[2019-08-11] MEDS: LACTOBACILLUS RHAMNOSUS GG 1 CAPSULE. PO SCH ×2 (09:22→20:47)
[2019-08-11] MEDS: CHOLECALCIFEROL (VITAMIN D3) 1,000 UNIT TABLET PO SCH (09:22)
[2019-08-11] MEDS: LOSARTAN POTASSIUM 50 MG TABLET. PO SCH (09:23)
[2019-08-11] MEDS: IV NORMAL SALINE 1000ML BAG 1,000 ML IV SCH (09:26)
--- NOTE | 2019-08-11 10:48 | NUR ---
Patient offered flu vac but she declined; states that it makes you sick. Nurse will educated her about it multiple times and will cont. to re-approach.
[2019-08-11 11:00] VITALS: BP 111/70
[2019-08-11] MEDS: LEVOTHYROXINE 150 MCG TABLET PO SCH (11:19)
--- NOTE | 2019-08-11 12:02 | PDOC ---
SUBJECTIVE ROS THOMAS/ CKD III Patient doing and feeling much better today. 24-hour urine had to be restarted overnight. CVS: no Orthopnea, no CP RESP: no SOB, no LOPEZ GI: no Nausea, no Vomiting : no Dysuria, no Urgency OBJECTIVE Vital Signs Vital Signs Date Time Temp Pulse Resp B/P (MAP) Pulse Ox O2 Delivery O2 Flow Rate FiO2 08/11/19 11:36 92 Room Air 08/11/19 09:23 77 110/55 08/11/19 08:00 1.0 08/11/19 07:00 98.2 18 98.2 I & 0 Intake and Output 08/11/19 07:00 Intake Total 840 ml Output Total 850 ml Balance -10 ml Intake Oral 840 ml Output Urine Total 850 ml # Voids 1 PHYSICAL EXAM Physical Exam GEN: Awake, Oriented x 3, In no distress, mild facial pallor cannot be ruled out EYES: Vision Unchanged, Conjunctiva Normal EN: No EN Drainage, Mucous Membranes no NECK: no JVD, + JVP, Supple, no Thyromegaly CVS: S1S2, ? Murmur, No Gallop, No Rub,no Edema RESP: no Rales, no Rhonchi,no Acc. Muscle Use GI: BS + ve, NO Bruit, Non Tender, Non Distended I was unable to palpate hepatomegaly : no CVA tenderness, no Suprapubic Tenderness DIAGNOSIS/ASSESSMENT Assessment & Plan ARF: Creatinine is slightly better with IV fluids as ordered. Watch off of IV fluids now. Current fluid and E-lyte status does not necessitate emergent need for dialysis. Underlying chronic kidney disease cannot be ruled out especially with now diagnosed smallish right kidney as well as long-standing use and possible hypertension. Await 24-hour urine election as ordered ANEMIA: She appears to be iron deficient currently. Will start oral iron and may eventually need hematology evaluation especially if she has persistent pancytopenia. Workup for paraprotein as ordered. HTN: Current BP meds as reviewed. Defer to cardiology to optimize from that standpoint History of CHF: Defer to cardiology regarding timing of restarting diuretics. LV EF is preserved Lowish calcium presumably associated with low albumin. Vitamin D deficiency may be contributing to the same also. She remains on vitamin D supplementation currently. If discharged, follow-up with us in 2-4 weeks Discussed Plan of Care with pt and at bedside COMMENT/RELEVANT DATA Meds Current Medications Medications (Trade) Dose Ordered Sig/Daya Start Time Stop Time Status Last Admin Dose Admin Acetaminophen (Tylenol) 650 mg PRN Q6HRS PRN 08/09/19 07:15 08/09/19 07:19 650 MG Acetaminophen/ Hydrocodone Bitart (Lortab 5/325) 1 tab PRN Q6HRS PRN 08/09/19 12:15 08/09/19 12:13 1 TAB Albuterol/ Ipratropium (Duoneb) 3 ml RTQID 08/07/19 16:00 08/11/19 11:36 3 ML Ascorbic Acid (Vitamin C) 500 mg DAILY 08/07/19 18:30 08/11/19 09:22 500 MG Aspirin (Children'S Aspirin) 81 mg DAILY 08/08/19 09:00 08/11/19 09:22 81 MG Atorvastatin Calcium (Lipitor) 10 mg QHS 08/07/19 21:00 08/10/19 23:27 10 MG Bismuth Subsalicylate (Pepto-Bismol) 262 mg PRN Q4HRS PRN 08/09/19 18:00 08/09/19 17:57 262 MG Ceftriaxone Sodium (Rocephin) 1 gm Q24H 08/10/19 18:00 08/11/19 18:01 08/10/19 17:42 1 GM Dextrose (Dextrose 50%-Water Syringe) 12.5 gm PRN Q15MIN PRN 08/09/19 17:00 Enoxaparin Sodium (Lovenox 30mg Syringe) 30 mg Q24H 08/07/19 14:00 08/10/19 16:22 30 MG Enoxaparin Sodium (Lovenox Per Pharmacy Prophylaxis Dosing) 1 each PRN DAILY PRN 08/07/19 13:15 Fentanyl Citrate (Fentanyl 2ml Vial) 100 mcg 1X ONCE 08/10/19 08:00 08/10/19 08:04 DC 08/10/19 08:00 50 MCG Furosemide (Lasix) 20 mg DAILY 08/08/19 09:00 08/09/19 10:46 DC 08/09/19 08:27 20 MG Guaifenesin (Robitussin Dm) 10 ml PRN Q6HRS PRN 08/07/19 13:30 08/10/19 23:27 10 ML Heparin Sodium (Porcine) (Heparin Sodium) 2,500 unit 1X ONCE 08/10/19 08:00 08/10/19 08:03 DC 08/10/19 08:00 2,500 UNIT Heparin Sodium/ Sodium Chloride (HEPARIN for ARTERIAL LINE FLUSH) 1,000 unit 1X ONCE 08/10/19 08:00 08/10/19 08:03 DC 08/10/19 08:00 1,000 UNIT Influenza Virus Vaccine Quadrival (Afluria Quad 2019-20 (3yr Up) Syringe) 0.5 ml ONCE ONCE 08/07/19 21:00 08/07/19 21:01 DC Insulin Glargine (Lantus Syringe) 20 unit QHS 08/07/19 21:00 08/10/19 23:31 20 UNIT Insulin Human Lispro (HumaLOG) 0-7 UNITS TIDWMEALS 08/09/19 17:00 08/09/19 17:17 4 UNITS Iodixanol (Visipaque 320) 100 ml 1X ONCE 08/10/19 08:00 08/10/19 08:04 DC 08/10/19 08:00 38 ML Lactobacillus Rhamnosus (Culturelle) 1 cap BID 08/08/19 21:00 08/11/19 09:22 1 CAP Levothyroxine Sodium (Synthroid) 150 mcg DAILYAC 08/08/19 07:30 08/11/19 11:19 150 MCG Lidocaine HCl (Xylocaine-Mpf 1% 2ml Vial) 2 ml 1X ONCE 08/10/19 08:00 08/10/19 08:04 DC 08/10/19 08:00 1 ML Linagliptin (Tradjenta) 5 mg DAILY 08/08/19 09:00 08/11/19 09:22 5 MG Losartan Potassium (Cozaar) 25 mg DAILY 08/09/19 09:00 08/11/19 09:23 25 MG Magnesium Sulfate 50 ml @ 25 mls/hr PRN DAILY PRN 08/10/19 12:15 Midazolam HCl (Versed) 2 mg 1X ONCE 08/10/19 08:00 08/10/19 08:03 DC 08/10/19 08:00 2 MG Multivitamins/ Minerals (I-Sravani) 1 tab DAILY 08/07/19 18:30 08/11/19 09:21 1 TAB Nitroglycerin (Nitroglycerin) 200 mcg 1X ONCE 08/10/19 08:00 08/10/19 08:03 DC 08/10/19 08:00 200 MCG Non-Formulary Medication (Alendronate Sodium ) 1 tab WEEKLY 08/14/19 09:00 UNV Oxybutynin Chloride (Ditropan) 5 mg BID 08/07/19 21:00 08/11/19 09:22 5 MG Pantoprazole Sodium (Protonix) 40 mg DAILYAC 08/08/19 07:30 08/11/19 09:21 40 MG Piperacillin Sod/ Tazobactam Sod (Zosyn Per Pharmacy) 1 each PRN DAILY PRN 08/07/19 13:15 08/09/19 12:48 DC Piperacillin Sod/ Tazobactam Sod 2.25 gm/Sodium Chloride 50 ml @ 100 mls/hr Q6HRS 08/07/19 14:00 08/09/19 12:48 DC 08/09/19 11:08 100 MLS/HR Potassium Chloride (Klor-Con) 40 meq 1X ONCE 08/09/19 11:00 08/09/19 11:01 DC 08/09/19 11:07 40 MEQ Sodium Chloride 1,000 ml @ 75 mls/hr [id number] 08/09/19 12:00 08/11/19 09:26 75 MLS/HR Throat Lozenges (Cepacol Sore Throat Lozenge) 1 jero PRN Q2HRS PRN 08/07/19 13:30 08/11/19 09:21 1 JERO Verapamil HCl (Verapamil) 2.5 mg 1X ONCE 08/10/19 08:00 08/10/19 08:03 DC 08/10/19 08:00 2.5 MG Vitamin D (Vitamin D3) 3,000 unit DAILY 08/08/19 09:00 08/11/19 09:22 3,000 UNIT Lab Laboratory Tests Test 08/10/19 12:27 08/10/19 17:17 08/10/19 21:00 08/10/19 22:30 Glucose (Fingerstick) 134 mg/dL (70-99) 105 mg/dL (70-99) 188 mg/dL (70-99) Urine Color Yellow Urine Clarity Clear Urine pH 5.5 Urine Specific [place] 1.015 Urine Protein Negative mg/dL (NEG-TRACE) Urine Glucose (UA) Negative mg/dL (NEG) Urine Ketones (Stick) Negative mg/dL (NEG) Urine Blood Negative (NEG) Urine Nitrite Negative (NEG) Urine Bilirubin Negative (NEG) Urine Urobilinogen Dipstick 0.2 mg/dL (0.2 mg/dL) Urine Leukocyte Esterase Moderate (NEG) Urine RBC 0 /HPF (0-2) Urine WBC 5-10 /HPF (0-4) Urine Squamous Epithelial Cells Occ /LPF Urine Bacteria 0 /HPF (0-FEW) Urine Random Creatinine 66.8 mg/dL (Not Establ.) Urine Random Total Protein 13.7 mg/dL (Not Establ.) Urine Protein/Creatinine Ratio 205 mg/g (0-200) Test 08/11/19 03:15 08/11/19 08:27 Hemoglobin 8.6 g/dL (12.0-15.5) Sodium Level 143 mmol/L (136-145) Potassium Level 3.9 mmol/L (3.5-5.1) Chloride Level 110 mmol/L (98-107) Carbon Dioxide Level 23 mmol/L (21-32) Anion Gap 10 (6-14) Blood Urea Nitrogen 19 mg/dL (7-20) Creatinine 1.2 mg/dL (0.6-1.0) Estimated GFR (Cockcroft-Gault) 44.0 Glucose Level 126 mg/dL (70-99) Calcium Level 7.9 mg/dL (8.5-10.1) Phosphorus Level 3.4 mg/dL (2.6-4.7) Magnesium Level 2.1 mg/dL (1.8-2.4) Albumin 2.3 g/dL (3.4-5.0) Glucose (Fingerstick) 103 mg/dL (70-99) Results All relevant outside records, renal labs, imaging studies, telemetry/EKG's were reviewed. Other FINDINGS: The right kidney measures 8.5 cm [id number]. The left kidney measures 9.4 cm [id number]. No solid or cystic renal lesion is seen. There is right renal cortical thinning. The bladder is nondistended. IMPRESSION: 1. Mild right renal atrophy with associated cortical thinning. 2. No acute finding. SHAILESH BEAULIEU MD Aug 11, 2019 12:02
--- NOTE | 2019-08-11 13:07 | PDOC ---
MARGARETH ROCK SPORTS MEDICINE PHYSICIAN 08/11/19 1307: CARDIO Progress Notes Date and Time Date of Service 08/11/19 Time of Evaluation 1310 Subjective Subjective: No Chest Pain, No Palpitations, Other (breathing improved ) Vitals Vitals Vital Signs Date Time Temp Pulse Resp B/P (MAP) Pulse Ox O2 Delivery O2 Flow Rate FiO2 08/11/19 11:36 92 Room Air 08/11/19 11:00 98.5 78 20 111/70 (84) 98.5 08/11/19 08:00 1.0 Weight Weight [ ] Input and Output Intake and Output Intake and Output 08/11/19 07:00 Intake Total 840 ml Output Total 850 ml Balance -10 ml Intake Oral 840 ml Output Urine Total 850 ml # Voids 1 Laboratory Labs Laboratory Tests Test 08/10/19 17:17 08/10/19 21:00 08/10/19 22:30 08/11/19 03:15 Glucose (Fingerstick) 105 mg/dL (70-99) 188 mg/dL (70-99) Urine Color Yellow Urine Clarity Clear Urine pH 5.5 Urine Specific [place] 1.015 Urine Protein Negative mg/dL (NEG-TRACE) Urine Glucose (UA) Negative mg/dL (NEG) Urine Ketones (Stick) Negative mg/dL (NEG) Urine Blood Negative (NEG) Urine Nitrite Negative (NEG) Urine Bilirubin Negative (NEG) Urine Urobilinogen Dipstick 0.2 mg/dL (0.2 mg/dL) Urine Leukocyte Esterase Moderate (NEG) Urine RBC 0 /HPF (0-2) Urine WBC 5-10 /HPF (0-4) Urine Squamous Epithelial Cells Occ /LPF Urine Bacteria 0 /HPF (0-FEW) Urine Random Creatinine 66.8 mg/dL (Not Establ.) Urine Random Total Protein 13.7 mg/dL (Not Establ.) Urine Protein/Creatinine Ratio 205 mg/g (0-200) Hemoglobin 8.6 g/dL (12.0-15.5) Sodium Level 143 mmol/L (136-145) Potassium Level 3.9 mmol/L (3.5-5.1) Chloride Level 110 mmol/L (98-107) Carbon Dioxide Level 23 mmol/L (21-32) Anion Gap 10 (6-14) Blood Urea Nitrogen 19 mg/dL (7-20) Creatinine 1.2 mg/dL (0.6-1.0) Estimated GFR (Cockcroft-Gault) 44.0 Glucose Level 126 mg/dL (70-99) Calcium Level 7.9 mg/dL (8.5-10.1) Phosphorus Level 3.4 mg/dL (2.6-4.7) Magnesium Level 2.1 mg/dL (1.8-2.4) Albumin 2.3 g/dL (3.4-5.0) Test 08/11/19 08:27 08/11/19 11:46 Glucose (Fingerstick) 103 mg/dL (70-99) 133 mg/dL (70-99) Review of Systems Constitutional: yes: weakness, alert, oriented Ears/Nose/Throat: Yes: no symptom reported Eyes: Yes: no symptom reported Pulmonary: Yes dyspnea Cardiovascular: Yes chest pain Gastrointestional: Yes: constipation Genitourinary: Yes: no symptom reported Musculoskeletal: Yes: no symptom reported Skin: Yes no symptom reported Psychiatric/Neurological: Yes: no symptom reported Endocrine: Yes: no symptom reported Physical Exam HEENT: Neck Supple W Full Motion Chest: Symmetric LUNGS: Clear to Auscultation Heart: S1S2, RRR, no thrills Abdomen: Soft N/T Extremities: Other (trace upper and LE edema bilaterally ) Neurology: alert, oriented, follow commands Assessment Assessment 1. Exertional dyspnea, multifactorial. Possible adult onset asthma 2. Acute on chronic diastolic CHF; LVEDP 20 mm Hg. S/p IVF prior to cath. Recent echo with preserved LV systolic function 3. CAD s/p PCI/ANSELMO to the LAD, LCx, and RCA 12/2014. Cath revealed 3VD with patent stents in the LAD/RCA and LCx. INJECTION WAX MOLDER of small caliber branches in the LCx and RCA 4. THOMAS on CKD; Cr better 5. Pancytopenia 6. Hypertension; controlled 7. Hyperlipidemia; statin therapy 8. Diabetes, II 9. UTI Recommendations Lasix 40mg 3 times per week upon discharge. Secondary prevention measures Add Ranexa given CAD with INJECTION WAX MOLDER and LOPEZ No BB with possible adult onset asthma. Consider intervention of INJECTION WAX MOLDER if significant exertional dyspnea persists despite aggressive medical therapy. Would like to f/u with our service upon discharge as it is much more convenient for her. F/u in 2 weeks as scheduled with NEGRITO Molina MD 08/11/19 1557: CARDIO Progress Notes Plan Plan Pt. seen and examined. Agree with above DIRECTOR OF SUSTAINABILITY PROGRAMS note. Supportive care for now. Discussed with patient about INJECTION WAX MOLDER Lcx and RPL but given her CKD, would not pursue at this time, especially in light of her normal EF. Add renexa. Thanks, will f/u closely. MARGARETH ROCK APRN Aug 11, 2019 13:07 NEGRITO CACERES MD Aug 11, 2019 15:57
[2019-08-11 13:11] LABS: KAPPA FREE 47.7 mg/L (3.3-19.4); KAPPA LAMBDA RATIO 1.17 (0.26-1.65); LAMBDA FREE 40.9 mg/L (5.7-26.3)
[2019-08-11] MEDS: FERROUS SULFATE 325 MG TABLET. PO SCH ×2 (14:04→20:48)
[2019-08-11] MEDS: DOCUSATE SODIUM 100 MG CAPSULE. PO SCH (14:05)
[2019-08-11] MEDS: ENOXAPARIN 30 MG/0.3 ML SYRINGE. SQ SCH (14:07)
--- NOTE | 2019-08-11 14:32 | PDOC ---
[facility] PROGRESS NOTE Chief Complaint Chief Complaint Chest pain and dyspnea THOMAS on CKD UTI COPD Lower extremity ulcers, painless History of Present Illness History of Present Illness 08/11/2019 Pt was seen and examined. Pt reports doing well, and would be amenable to discharge. She has no acute complaints today. 08/10/2019 Ms Chavez is a 74 yo female w/ PMHx CHF, coronary stent placement for coronary artery disease, hypercholesterolemia, hypertension, COPD, asthma, GERD, hypothyroidism, chronic anemia, insomnia transferred from [place] for cough, shortness of breath, and dizziness. Longstanding complaints, but has worsened. Follows with Dr. Somers of cardiology. No known fevers, but was febrile upon arrival. Yesterday, had episode of aching in her left chest. Radiated down and around to her abdomen. [place] slightly nauseated and was dizzy. No diaphoresis or palpitations. No LE edema. She does have chronic LE wounds that are not painful but are large and ulcerated. 08/09: Had some low BP yesterday, improved with IVF and holding antihypertensives. Asymptomatic. Still a bit short of breath, chest pain improved somewhat. She is feeling better today. Still a bit short of breath with some chest discomfort. Drowsy. Otherwise no complaints. NPO for cardiac cath today. Vitals/I&O Vitals/I&O: Vital Signs Date Time Temp Pulse Resp B/P (MAP) Pulse Ox O2 Delivery O2 Flow Rate FiO2 08/11/19 11:36 92 Room Air 08/11/19 11:00 98.5 78 20 111/70 (84) 98.5 08/11/19 08:00 1.0 I & O 08/10/19 08/10/19 08/11/19 15:00 23:00 07:00 Intake Total 340 ml 200 ml 300 ml Output Total 250 ml 600 ml Balance 340 ml -50 ml -300 ml Physical Exam General: Alert, Oriented X3, Cooperative Heart: Regular rate Lungs: Clear Abdomen: Normal bowel sounds, Soft Extremities: No clubbing, No edema Skin: No rashes Labs Labs: Laboratory Tests Test 08/10/19 17:17 08/10/19 21:00 08/10/19 22:30 08/11/19 03:15 Glucose (Fingerstick) 105 mg/dL (70-99) 188 mg/dL (70-99) Urine Color Yellow Urine Clarity Clear Urine pH 5.5 Urine Specific [place] 1.015 Urine Protein Negative mg/dL (NEG-TRACE) Urine Glucose (UA) Negative mg/dL (NEG) Urine Ketones (Stick) Negative mg/dL (NEG) Urine Blood Negative (NEG) Urine Nitrite Negative (NEG) Urine Bilirubin Negative (NEG) Urine Urobilinogen Dipstick 0.2 mg/dL (0.2 mg/dL) Urine Leukocyte Esterase Moderate (NEG) Urine RBC 0 /HPF (0-2) Urine WBC 5-10 /HPF (0-4) Urine Squamous Epithelial Cells Occ /LPF Urine Bacteria 0 /HPF (0-FEW) Urine Random Creatinine 66.8 mg/dL (Not Establ.) Urine Random Total Protein 13.7 mg/dL (Not Establ.) Urine Protein/Creatinine Ratio 205 mg/g (0-200) Hemoglobin 8.6 g/dL (12.0-15.5) Sodium Level 143 mmol/L (136-145) Potassium Level 3.9 mmol/L (3.5-5.1) Chloride Level 110 mmol/L (98-107) Carbon Dioxide Level 23 mmol/L (21-32) Anion Gap 10 (6-14) Blood Urea Nitrogen 19 mg/dL (7-20) Creatinine 1.2 mg/dL (0.6-1.0) Estimated GFR (Cockcroft-Gault) 44.0 Glucose Level 126 mg/dL (70-99) Calcium Level 7.9 mg/dL (8.5-10.1) Phosphorus Level 3.4 mg/dL (2.6-4.7) Magnesium Level 2.1 mg/dL (1.8-2.4) Albumin 2.3 g/dL (3.4-5.0) Test 08/11/19 08:27 08/11/19 11:46 Glucose (Fingerstick) 103 mg/dL (70-99) 133 mg/dL (70-99) Review of Systems Review of Systems: Denies CP Denies SOB Denies N/V/D Assessment and Plan Assessmemt and Plan Problems Medical Problems: (1) THOMAS (acute kidney injury) Status: Acute (2) Asthma Status: Chronic (3) Chest pain Status: Acute (4) CKD (chronic kidney disease), stage III Status: Chronic (5) COPD (chronic obstructive pulmonary disease) Status: Chronic (6) Dyspnea Status: Acute (7) Leg ulcer Status: Chronic (8) UTI (urinary tract infection) Status: Acute Chest pain and dyspnea THOMAS on CKD UTI COPD Lower extremity ulcers, painless Plan: 1) Plan to D/C patient tomorrow once 24 urine has been collected 2) Await further recommendations from nephrology, pulmonology, and cardiology 3) Continue Ceftriaxone IV 4) DVT prophylaxis 5) Full code 6) Daily labs Comment Review of Relevant I have reviewed the following items arian (where applicable) has been applied. Medications: Current Medications Medications (Trade) Dose Ordered Sig/Daya Route PRN Reason Start Time Stop Time Status Last Admin Dose Admin Ceftriaxone Sodium (Rocephin) 1 gm Q24H IVP 08/10/19 18:00 08/11/19 18:01 08/10/19 17:42 Ferrous Sulfate (Feosol) 325 mg TID PO 08/11/19 14:00 08/11/19 14:04 Docusate Sodium (Colace) 100 mg DAILY PO 08/11/19 14:00 08/11/19 14:05 JEANNE CLARK III DO Aug 11, 2019 14:32
[2019-08-11 15:00] VITALS: BP 135/61
--- NOTE | 2019-08-11 15:33 | PDOC ---
PULMONARY PROGRESS NOTES Subjective not more soa today Vitals Vital Signs Date Time Temp Pulse Resp B/P (MAP) Pulse Ox O2 Delivery O2 Flow Rate FiO2 08/11/19 15:23 94 Room Air 08/11/19 15:00 98.6 82 20 135/61 (85) 98.6 08/11/19 08:00 1.0 ROS: No Nausea, No Chest Pain, No Abdominal Pain, No Increase Cough General: Alert Lungs: Clear Cardiovascular: S1, S2 Abdomen: Soft Neuro Exam: Alert, Oriented, No Focal Findings Extremities: No Edema Labs Laboratory Tests Test 08/09/19 16:35 08/09/19 20:11 08/10/19 06:25 08/10/19 09:19 Glucose (Fingerstick) 216 mg/dL (70-99) 148 mg/dL (70-99) 121 mg/dL (70-99) Sodium Level 144 mmol/L (136-145) Potassium Level 4.1 mmol/L (3.5-5.1) Chloride Level 111 mmol/L (98-107) Carbon Dioxide Level 23 mmol/L (21-32) Anion Gap 10 (6-14) Blood Urea Nitrogen 25 mg/dL (7-20) Creatinine 1.5 mg/dL (0.6-1.0) Estimated GFR (Cockcroft-Gault) 34.0 Glucose Level 157 mg/dL (70-99) Calcium Level 7.7 mg/dL (8.5-10.1) Iron Level 12 ug/dL (50-170) Total Iron Binding Capacity 231 ug/dL (250-450) Iron Saturation 5 % (15-34) Ferritin 56 ng/mL (8-252) Test 08/10/19 12:27 08/10/19 12:50 08/10/19 17:17 08/10/19 21:00 Glucose (Fingerstick) 134 mg/dL (70-99) 105 mg/dL (70-99) 188 mg/dL (70-99) Immunoglobulin [place]/Lambda Ratio 1.17 (0.26-1.65) Free [place] Light Chains 47.7 mg/L (3.3-19.4) Free [place] Light Chains 40.9 mg/L (5.7-26.3) Test 08/10/19 22:30 08/11/19 03:15 08/11/19 08:27 08/11/19 11:46 Urine Color Yellow Urine Clarity Clear Urine pH 5.5 Urine Specific [place] 1.015 Urine Protein Negative mg/dL (NEG-TRACE) Urine Glucose (UA) Negative mg/dL (NEG) Urine Ketones (Stick) Negative mg/dL (NEG) Urine Blood Negative (NEG) Urine Nitrite Negative (NEG) Urine Bilirubin Negative (NEG) Urine Urobilinogen Dipstick 0.2 mg/dL (0.2 mg/dL) Urine Leukocyte Esterase Moderate (NEG) Urine RBC 0 /HPF (0-2) Urine WBC 5-10 /HPF (0-4) Urine Squamous Epithelial Cells Occ /LPF Urine Bacteria 0 /HPF (0-FEW) Urine Random Creatinine 66.8 mg/dL (Not Establ.) Urine Random Total Protein 13.7 mg/dL (Not Establ.) Urine Protein/Creatinine Ratio 205 mg/g (0-200) Hemoglobin 8.6 g/dL (12.0-15.5) Sodium Level 143 mmol/L (136-145) Potassium Level 3.9 mmol/L (3.5-5.1) Chloride Level 110 mmol/L (98-107) Carbon Dioxide Level 23 mmol/L (21-32) Anion Gap 10 (6-14) Blood Urea Nitrogen 19 mg/dL (7-20) Creatinine 1.2 mg/dL (0.6-1.0) Estimated GFR (Cockcroft-Gault) 44.0 Glucose Level 126 mg/dL (70-99) Calcium Level 7.9 mg/dL (8.5-10.1) Phosphorus Level 3.4 mg/dL (2.6-4.7) Magnesium Level 2.1 mg/dL (1.8-2.4) Albumin 2.3 g/dL (3.4-5.0) Glucose (Fingerstick) 103 mg/dL (70-99) 133 mg/dL (70-99) Laboratory Tests Test 08/10/19 17:17 08/10/19 21:00 08/10/19 22:30 08/11/19 03:15 Glucose (Fingerstick) 105 mg/dL (70-99) 188 mg/dL (70-99) Urine Color Yellow Urine Clarity Clear Urine pH 5.5 Urine Specific [place] 1.015 Urine Protein Negative mg/dL (NEG-TRACE) Urine Glucose (UA) Negative mg/dL (NEG) Urine Ketones (Stick) Negative mg/dL (NEG) Urine Blood Negative (NEG) Urine Nitrite Negative (NEG) Urine Bilirubin Negative (NEG) Urine Urobilinogen Dipstick 0.2 mg/dL (0.2 mg/dL) Urine Leukocyte Esterase Moderate (NEG) Urine RBC 0 /HPF (0-2) Urine WBC 5-10 /HPF (0-4) Urine Squamous Epithelial Cells Occ /LPF Urine Bacteria 0 /HPF (0-FEW) Urine Random Creatinine 66.8 mg/dL (Not Establ.) Urine Random Total Protein 13.7 mg/dL (Not Establ.) Urine Protein/Creatinine Ratio 205 mg/g (0-200) Hemoglobin 8.6 g/dL (12.0-15.5) Sodium Level 143 mmol/L (136-145) Potassium Level 3.9 mmol/L (3.5-5.1) Chloride Level 110 mmol/L (98-107) Carbon Dioxide Level 23 mmol/L (21-32) Anion Gap 10 (6-14) Blood Urea Nitrogen 19 mg/dL (7-20) Creatinine 1.2 mg/dL (0.6-1.0) Estimated GFR (Cockcroft-Gault) 44.0 Glucose Level 126 mg/dL (70-99) Calcium Level 7.9 mg/dL (8.5-10.1) Phosphorus Level 3.4 mg/dL (2.6-4.7) Magnesium Level 2.1 mg/dL (1.8-2.4) Albumin 2.3 g/dL (3.4-5.0) Test 08/11/19 08:27 08/11/19 11:46 Glucose (Fingerstick) 103 mg/dL (70-99) 133 mg/dL (70-99) Medications Active Scripts Medications Dose Route/Sig Max Daily Dose Days Date Category Oxybutynin Chloride Er (Oxybutynin Chloride) 10 Mg Tab.er.24 10 Mg PO DAILY 08/07/19 Reported Pravastatin Sodium 40 Mg Tablet 1 Tab PO QHS 10/17/18 Reported Protonix (Pantoprazole Sodium) 20 Mg Tablet.dr 40 Mg PO DAILY 10/17/18 Reported Tradjenta (Linagliptin) 5 Mg Tablet 5 Mg PO DAILY 10/17/18 Reported Levothyroxine Sodium 150 Mcg Tablet 150 Mcg PO DAILYAC 10/17/18 Reported Tresiba Flextouch U-200 (Insulin Degludec) 200 Unit/1 Ml Insuln.pen 20 Unit SQ HS 10/17/18 Reported Furosemide 20 Mg Tablet 1 Tab PO DAILY 10/17/18 Reported Vitamin D3 (Cholecalciferol (Vitamin D3)) 1,000 Unit Tablet 3,000 Unit PO DAILY 10/17/18 Reported Aspirin 81 Mg Tab.chew 1 Tab PO DAILY 10/17/18 Reported Alendronate Sodium 70 Mg Tablet 1 Tab PO WEEKLY 10/17/18 Reported Losartan Potassium 100 Mg Tablet 100 Mg PO DAILY 11/11/14 Reported Impression . IMPRESSION: 1. Progressive dyspnea secondary to acute exacerbation of chronic obstructive pulmonary disease/asthma. and CAD 2. Acute on chronic diastolic/systolic heart failure. 3. Urinary tract infection. 4. Tobacco dependence, in remission. 5. Hypertension. 6. Coronary artery disease with previous stent placement. 7. Other comorbidities as listed above. 8. Acute on chronic kidney failure. CORONARY ANGIOGRAPHY: LM is a large caliber vessel with normal angiographic appearance. LAD is a moderate caliber vessel with a patent mid stent and mild diffuse luminal irregularities of up to 30-40%. D1 is a small caliber vessel with proximal to mid 50% stenosis. LCx is a moderate caliber non-dominant vessel with a mid subtotal occlusion. The distal vessel is small in caliber and seen to fill via faint left to left collaterals. OM1 is a moderate caliber vessel with a patent previously placed stent. RCA is a large caliber dominant vessel with patent previously placed proximal and mid stents. RPDA is a moderate caliber vessels with normal angiographic appearance. RPL is a small caliber vessel with an ostial occlusion, likely from previously placed stents and is seen to fill via faint right to right collaterals. Given lack of any EKG changes and troponin elevation, further intervention on the chronic total occlusions was deferred. Conclusion 1. Acute on chronic diastolic HF. LVEDP 20 mm Hg 2. Three vessel coronary disease. 3. Patent stents in the LAD/RCA and LCx. 4. Chronic total occlusions of small caliber branches in the Lcx and RCA Recommendations Aggressive Medical Therapy Plan . MEDICAL MANAGEMENT FOR CAD WILL CHEK PFT NOT SURE HOW MUCH COPD IS CONTRIBUTING TO HER SYMPTOMS, I SUSPECT LITTLE 6 MIN WALK 24 URINE COLLECTION HOME IN AM CARLITOS BALLARD MD Aug 11, 2019 15:33
[2019-08-11] MEDS: ACETAMINOPHEN 325 MG TABLET. PO PRN (17:43)
[2019-08-11] MEDS: BISMUTH SUBSALICYLATE 262 MG/15 ML ORAL.SUSP 236ML BOTTLE. PO PRN (17:43)
[2019-08-11] MEDS: cefTRIAXone IV Push 1 GM VIAL. IVP SCH (17:45)
[2019-08-11 19:09] LABS: ALBUM 2.5 g/dL (2.9-4.4); ALPHA 1 0.2 g/dL (0.0-0.4); ALPHA 2 0.6 g/dL (0.4-1.0); BETA 0.8 g/dL (0.7-1.3); GAMMA 0.9 g/dL (0.4-1.8)
[2019-08-11 19:44] VITALS: BP 100/53
[2019-08-11] MEDS: ATORVASTATIN CALCIUM 10 MG TABLET. PO SCH (20:48)
[2019-08-11] MEDS: RANOLAZINE 500 MG TAB.ER.12H PO SCH (20:48)
[2019-08-11] MEDS: INSULIN GLARGINE SYRINGE. SQ SCH (20:54)
[2019-08-11 22:47] VITALS: BP 121/58
[2019-08-12 02:31] VITALS: BP 126/62
[2019-08-12 05:12] LABS: BASO % 1 % (0-3); EOS # 0.1 x10^3/uL (0.0-0.7); EOS % 5 % (0-3); HEMOGLOBIN 8.8 g/dL (12.0-15.5); LYMPH # 0.6 x10^3/uL (1.0-4.8); LYMPH % 21 % (24-48); MEAN CORPUSCULAR HEMOGLOBIN 32 pg (25-35); MEAN CORPUSCULAR HGB CONC 33 g/dL (31-37); MEAN CORPUSCULAR VOLUME 98 fL (79-100); MONO # 0.3 x10^3/uL (0.0-1.1); MONO % 8 % (0-9); NEUT % 65 % (31-73); PLATELET COUNT 90 x10^3/uL (140-400); RED BLOOD COUNT 2.76 x10^6/uL (3.50-5.40); RED CELL DISTRIBUTION WIDTH 16.1 % (11.5-14.5); WHITE BLOOD COUNT 3.1 x10^3/uL (4.0-11.0)
[2019-08-12 06:07] LABS: ALBUMIN 2.4 g/dL (3.4-5.0); ALBUMIN/GLOBULIN RATIO 0.7 (1.0-1.7); CALCIUM 8.6 mg/dL (8.5-10.1); CREATININE 1.3 mg/dL (0.6-1.0); GFR 40.2; MAGNESIUM 1.9 mg/dL (1.8-2.4); PHOSPHORUS 4.1 mg/dL (2.6-4.7); TOTAL BILIRUBIN 0.4 mg/dL (0.2-1.0); TOTAL PROTEIN 5.9 g/dL (6.4-8.2)
[2019-08-12 06:52] LABS: POTASSIUM 4.3 mmol/L (3.5-5.1)
[2019-08-12 07:27] VITALS: BP 120/56
[2019-08-12] MEDS: PANTOPRAZOLE 40 MG TABLET.DR. PO SCH (07:45)
[2019-08-12] MEDS: LEVOTHYROXINE 150 MCG TABLET PO SCH (07:45)
[2019-08-12] MEDS: BISMUTH SUBSALICYLATE 262 MG/15 ML ORAL.SUSP 236ML BOTTLE. PO PRN (07:47)
[2019-08-12] MEDS: INSULIN LISPRO 300 UNITS/3 ML VIAL. SQ SCH ×2 (08:00→12:00)
[2019-08-12] MEDS: IPRATRPIUM/ALBUTEROL 0.5/2.5MG 3 ML NEBU. NEB SCH ×2 (08:19→09:52)
[2019-08-12] MEDS: LOSARTAN POTASSIUM 50 MG TABLET. PO SCH (08:47)
[2019-08-12] MEDS: RANOLAZINE 500 MG TAB.ER.12H PO SCH (08:47)
[2019-08-12] MEDS: MULTIVITAMIN I-VITE TABLET. PO SCH (08:47)
[2019-08-12] MEDS: LACTOBACILLUS RHAMNOSUS GG 1 CAPSULE. PO SCH (08:48)
[2019-08-12] MEDS: LINAGLIPTIN 5 MG TABLET PO SCH (08:48)
[2019-08-12] MEDS: OXYBUTYNIN CHLORIDE 5 MG TABLET PO SCH (08:48)
[2019-08-12] MEDS: ASPIRIN CHEWABLE 81 MG TABLET. PO SCH (08:48)
[2019-08-12] MEDS: CHOLECALCIFEROL (VITAMIN D3) 1,000 UNIT TABLET PO SCH (08:48)
[2019-08-12] MEDS: ASCORBIC ACID 500 MG TABLET PO SCH (08:48)
[2019-08-12] MEDS: FERROUS SULFATE 325 MG TABLET. PO SCH (08:48)
[2019-08-12] MEDS: DOCUSATE SODIUM 100 MG CAPSULE. PO SCH (08:48)
--- NOTE | 2019-08-12 08:58 | PDOC ---
PULMONARY PROGRESS NOTES Subjective not more soa today Vitals Vital Signs Date Time Temp Pulse Resp B/P (MAP) Pulse Ox O2 Delivery O2 Flow Rate FiO2 08/12/19 08:47 78 120/56 08/12/19 08:19 94 08/12/19 07:27 98.4 20 Nasal Cannula 2.0 98.4 ROS: No Nausea, No Chest Pain, No Abdominal Pain, No Increase Cough General: Alert Lungs: Clear Cardiovascular: S1, S2 Abdomen: Soft Neuro Exam: Alert, Oriented, No Focal Findings Extremities: No Edema Labs Laboratory Tests Test 08/10/19 09:19 08/10/19 12:27 08/10/19 12:50 08/10/19 17:17 Glucose (Fingerstick) 121 mg/dL (70-99) 134 mg/dL (70-99) 105 mg/dL (70-99) Total Protein (PEP) 5.0 g/dL (6.0-8.5) Albumin (PEP) 2.5 g/dL (2.9-4.4) Globulin 2.5 g/dL (2.2-3.9) Albumin/Globulin Ratio 1.0 (0.7-1.7) Fuhfz-0-Hpkvuplht 0.2 g/dL (0.0-0.4) Xciud-0-Dwgfjnlhd 0.6 g/dL (0.4-1.0) Beta Globulins 0.8 g/dL (0.7-1.3) Gamma Globulins 0.9 g/dL (0.4-1.8) Protein Electrophoresis M-Felipe Not observed g/dL (Not Protein Electrophoresis Comment Comment (.) Immunoglobulin Elbert/Lambda Ratio 1.17 (0.26-1.65) Free Elbert Light Chains 47.7 mg/L (3.3-19.4) Free Lambda Light Chains 40.9 mg/L (5.7-26.3) Test 08/10/19 21:00 08/10/19 22:30 08/11/19 03:15 08/11/19 08:27 Glucose (Fingerstick) 188 mg/dL (70-99) 103 mg/dL (70-99) Urine Color Yellow Urine Clarity Clear Urine pH 5.5 Urine Specific [place] 1.015 Urine Protein Negative mg/dL (NEG-TRACE) Urine Glucose (UA) Negative mg/dL (NEG) Urine Ketones (Stick) Negative mg/dL (NEG) Urine Blood Negative (NEG) Urine Nitrite Negative (NEG) Urine Bilirubin Negative (NEG) Urine Urobilinogen Dipstick 0.2 mg/dL (0.2 mg/dL) Urine Leukocyte Esterase Moderate (NEG) Urine RBC 0 /HPF (0-2) Urine WBC 5-10 /HPF (0-4) Urine Squamous Epithelial Cells Occ /LPF Urine Bacteria 0 /HPF (0-FEW) Urine Random Creatinine 66.8 mg/dL (Not Establ.) Urine Random Total Protein 13.7 mg/dL (Not Establ.) Urine Protein/Creatinine Ratio 205 mg/g (0-200) Hemoglobin 8.6 g/dL (12.0-15.5) Sodium Level 143 mmol/L (136-145) Potassium Level 3.9 mmol/L (3.5-5.1) Chloride Level 110 mmol/L (98-107) Carbon Dioxide Level 23 mmol/L (21-32) Anion Gap 10 (6-14) Blood Urea Nitrogen 19 mg/dL (7-20) Creatinine 1.2 mg/dL (0.6-1.0) Estimated GFR (Cockcroft-Gault) 44.0 Glucose Level 126 mg/dL (70-99) Calcium Level 7.9 mg/dL (8.5-10.1) Phosphorus Level 3.4 mg/dL (2.6-4.7) Magnesium Level 2.1 mg/dL (1.8-2.4) Albumin 2.3 g/dL (3.4-5.0) Test 08/11/19 11:46 08/11/19 17:14 08/11/19 20:33 08/12/19 04:45 Glucose (Fingerstick) 133 mg/dL (70-99) 125 mg/dL (70-99) 130 mg/dL (70-99) White Blood Count 3.1 x10^3/uL (4.0-11.0) Red Blood Count 2.76 x10^6/uL (3.50-5.40) Hemoglobin 8.8 g/dL (12.0-15.5) Hematocrit 27.0 % (36.0-47.0) Mean Corpuscular Volume 98 fL (79-100) Mean Corpuscular Hemoglobin 32 pg (25-35) Mean Corpuscular Hemoglobin Concent 33 g/dL (31-37) Red Cell Distribution Width 16.1 % (11.5-14.5) Platelet Count 90 x10^3/uL (140-400) Neutrophils (%) (Auto) 65 % (31-73) Lymphocytes (%) (Auto) 21 % (24-48) Monocytes (%) (Auto) 8 % (0-9) Eosinophils (%) (Auto) 5 % (0-3) Basophils (%) (Auto) 1 % (0-3) Neutrophils # (Auto) 2.0 x10^3/uL (1.8-7.7) Lymphocytes # (Auto) 0.6 x10^3/uL (1.0-4.8) Monocytes # (Auto) 0.3 x10^3/uL (0.0-1.1) Eosinophils # (Auto) 0.1 x10^3/uL (0.0-0.7) Basophils # (Auto) 0.0 x10^3/uL (0.0-0.2) Sodium Level 141 mmol/L (136-145) Potassium Level 4.3 mmol/L (3.5-5.1) Chloride Level 111 mmol/L (98-107) Carbon Dioxide Level 22 mmol/L (21-32) Anion Gap 8 (6-14) Blood Urea Nitrogen 15 mg/dL (7-20) Creatinine 1.3 mg/dL (0.6-1.0) Estimated GFR (Cockcroft-Gault) 40.2 BUN/Creatinine Ratio 12 (6-20) Glucose Level 123 mg/dL (70-99) Calcium Level 8.6 mg/dL (8.5-10.1) Phosphorus Level 4.1 mg/dL (2.6-4.7) Magnesium Level 1.9 mg/dL (1.8-2.4) Total Bilirubin 0.4 mg/dL (0.2-1.0) Aspartate Amino Transf (AST/SGOT) 26 U/L (15-37) Alanine Aminotransferase (ALT/SGPT) 13 U/L (14-59) Alkaline Phosphatase 103 U/L (46-116) Total Protein 5.9 g/dL (6.4-8.2) Albumin 2.4 g/dL (3.4-5.0) Albumin/Globulin Ratio 0.7 (1.0-1.7) Test 08/12/19 07:50 Glucose (Fingerstick) 86 mg/dL (70-99) Laboratory Tests Test 08/11/19 11:46 08/11/19 17:14 08/11/19 20:33 08/12/19 04:45 Glucose (Fingerstick) 133 mg/dL (70-99) 125 mg/dL (70-99) 130 mg/dL (70-99) White Blood Count 3.1 x10^3/uL (4.0-11.0) Red Blood Count 2.76 x10^6/uL (3.50-5.40) Hemoglobin 8.8 g/dL (12.0-15.5) Hematocrit 27.0 % (36.0-47.0) Mean Corpuscular Volume 98 fL (79-100) Mean Corpuscular Hemoglobin 32 pg (25-35) Mean Corpuscular Hemoglobin Concent 33 g/dL (31-37) Red Cell Distribution Width 16.1 % (11.5-14.5) Platelet Count 90 x10^3/uL (140-400) Neutrophils (%) (Auto) 65 % (31-73) Lymphocytes (%) (Auto) 21 % (24-48) Monocytes (%) (Auto) 8 % (0-9) Eosinophils (%) (Auto) 5 % (0-3) Basophils (%) (Auto) 1 % (0-3) Neutrophils # (Auto) 2.0 x10^3/uL (1.8-7.7) Lymphocytes # (Auto) 0.6 x10^3/uL (1.0-4.8) Monocytes # (Auto) 0.3 x10^3/uL (0.0-1.1) Eosinophils # (Auto) 0.1 x10^3/uL (0.0-0.7) Basophils # (Auto) 0.0 x10^3/uL (0.0-0.2) Sodium Level 141 mmol/L (136-145) Potassium Level 4.3 mmol/L (3.5-5.1) Chloride Level 111 mmol/L (98-107) Carbon Dioxide Level 22 mmol/L (21-32) Anion Gap 8 (6-14) Blood Urea Nitrogen 15 mg/dL (7-20) Creatinine 1.3 mg/dL (0.6-1.0) Estimated GFR (Cockcroft-Gault) 40.2 BUN/Creatinine Ratio 12 (6-20) Glucose Level 123 mg/dL (70-99) Calcium Level 8.6 mg/dL (8.5-10.1) Phosphorus Level 4.1 mg/dL (2.6-4.7) Magnesium Level 1.9 mg/dL (1.8-2.4) Total Bilirubin 0.4 mg/dL (0.2-1.0) Aspartate Amino Transf (AST/SGOT) 26 U/L (15-37) Alanine Aminotransferase (ALT/SGPT) 13 U/L (14-59) Alkaline Phosphatase 103 U/L (46-116) Total Protein 5.9 g/dL (6.4-8.2) Albumin 2.4 g/dL (3.4-5.0) Albumin/Globulin Ratio 0.7 (1.0-1.7) Test 08/12/19 07:50 Glucose (Fingerstick) 86 mg/dL (70-99) Medications Active Scripts Medications Dose Route/Sig Max Daily Dose Days Date Category Oxybutynin Chloride Er (Oxybutynin Chloride) 10 Mg Tab.er.24 10 Mg PO DAILY 08/07/19 Reported Pravastatin Sodium 40 Mg Tablet 1 Tab PO QHS 10/17/18 Reported Protonix (Pantoprazole Sodium) 20 Mg Tablet.dr 40 Mg PO DAILY 10/17/18 Reported Tradjenta (Linagliptin) 5 Mg Tablet 5 Mg PO DAILY 10/17/18 Reported Levothyroxine Sodium 150 Mcg Tablet 150 Mcg PO DAILYAC 10/17/18 Reported Tresiba Flextouch U-200 (Insulin Degludec) 200 Unit/1 Ml Insuln.pen 20 Unit SQ HS 10/17/18 Reported Furosemide 20 Mg Tablet 1 Tab PO DAILY 10/17/18 Reported Vitamin D3 (Cholecalciferol (Vitamin D3)) 1,000 Unit Tablet 3,000 Unit PO DAILY 10/17/18 Reported Aspirin 81 Mg Tab.chew 1 Tab PO DAILY 10/17/18 Reported Alendronate Sodium 70 Mg Tablet 1 Tab PO WEEKLY 10/17/18 Reported Losartan Potassium 100 Mg Tablet 100 Mg PO DAILY 11/11/14 Reported Impression . IMPRESSION: 1. Progressive dyspnea secondary to acute exacerbation of chronic obstructive pulmonary disease/asthma. and CAD 2. Acute on chronic diastolic/systolic heart failure. 3. Urinary tract infection. 4. Tobacco dependence, in remission. 5. Hypertension. 6. Coronary artery disease with previous stent placement. 7. Other comorbidities as listed above. 8. Acute on chronic kidney failure. CORONARY ANGIOGRAPHY: LM is a large caliber vessel with normal angiographic appearance. LAD is a moderate caliber vessel with a patent mid stent and mild diffuse luminal irregularities of up to 30-40%. D1 is a small caliber vessel with proximal to mid 50% stenosis. LCx is a moderate caliber non-dominant vessel with a mid subtotal occlusion. The distal vessel is small in caliber and seen to fill via faint left to left collaterals. OM1 is a moderate caliber vessel with a patent previously placed stent. RCA is a large caliber dominant vessel with patent previously placed proximal and mid stents. RPDA is a moderate caliber vessels with normal angiographic appearance. RPL is a small caliber vessel with an ostial occlusion, likely from previously placed stents and is seen to fill via faint right to right collaterals. Given lack of any EKG changes and troponin elevation, further intervention on the chronic total occlusions was deferred. Conclusion 1. Acute on chronic diastolic HF. LVEDP 20 mm Hg 2. Three vessel coronary disease. 3. Patent stents in the LAD/RCA and LCx. 4. Chronic total occlusions of small caliber branches in the Lcx and RCA Recommendations Aggressive Medical Therapy Plan . MEDICAL MANAGEMENT FOR CAD WILL CHEK PFT OUT PTV NOT SURE HOW MUCH COPD IS CONTRIBUTING TO HER SYMPTOMS, I SUSPECT LITTLE 6 MIN WALK 02 OBTAINED CARLITOS BALLARD MD Aug 12, 2019 08:57
[2019-08-12 11:08] VITALS: BP 146/64
--- NOTE | 2019-08-12 12:05 | PDOC ---
CARDIO Progress Notes Date and Time Date of Service 08/12/19 Time of Evaluation 1200 Subjective Subjective: No Chest Pain, No Palpitations, Other (wanting to go home) Vitals Vitals Vital Signs Date Time Temp Pulse Resp B/P (MAP) Pulse Ox O2 Delivery O2 Flow Rate FiO2 08/12/19 11:08 98.4 74 20 146/64 (91) 99 Nasal Cannula 2.0 98.4 Weight Weight [ ] Input and Output Intake and Output Intake and Output 08/12/19 07:00 Intake Total 600 ml Output Total 1300 ml Balance -700 ml Intake Oral 600 ml Output Urine Total 1300 ml Laboratory Labs Laboratory Tests Test 08/11/19 17:14 08/11/19 20:33 08/12/19 04:45 08/12/19 07:50 Glucose (Fingerstick) 125 mg/dL (70-99) 130 mg/dL (70-99) 86 mg/dL (70-99) White Blood Count 3.1 x10^3/uL (4.0-11.0) Red Blood Count 2.76 x10^6/uL (3.50-5.40) Hemoglobin 8.8 g/dL (12.0-15.5) Hematocrit 27.0 % (36.0-47.0) Mean Corpuscular Volume 98 fL (79-100) Mean Corpuscular Hemoglobin 32 pg (25-35) Mean Corpuscular Hemoglobin Concent 33 g/dL (31-37) Red Cell Distribution Width 16.1 % (11.5-14.5) Platelet Count 90 x10^3/uL (140-400) Neutrophils (%) (Auto) 65 % (31-73) Lymphocytes (%) (Auto) 21 % (24-48) Monocytes (%) (Auto) 8 % (0-9) Eosinophils (%) (Auto) 5 % (0-3) Basophils (%) (Auto) 1 % (0-3) Neutrophils # (Auto) 2.0 x10^3/uL (1.8-7.7) Lymphocytes # (Auto) 0.6 x10^3/uL (1.0-4.8) Monocytes # (Auto) 0.3 x10^3/uL (0.0-1.1) Eosinophils # (Auto) 0.1 x10^3/uL (0.0-0.7) Basophils # (Auto) 0.0 x10^3/uL (0.0-0.2) Sodium Level 141 mmol/L (136-145) Potassium Level 4.3 mmol/L (3.5-5.1) Chloride Level 111 mmol/L (98-107) Carbon Dioxide Level 22 mmol/L (21-32) Anion Gap 8 (6-14) Blood Urea Nitrogen 15 mg/dL (7-20) Creatinine 1.3 mg/dL (0.6-1.0) Estimated GFR (Cockcroft-Gault) 40.2 BUN/Creatinine Ratio 12 (6-20) Glucose Level 123 mg/dL (70-99) Calcium Level 8.6 mg/dL (8.5-10.1) Phosphorus Level 4.1 mg/dL (2.6-4.7) Magnesium Level 1.9 mg/dL (1.8-2.4) Total Bilirubin 0.4 mg/dL (0.2-1.0) Aspartate Amino Transf (AST/SGOT) 26 U/L (15-37) Alanine Aminotransferase (ALT/SGPT) 13 U/L (14-59) Alkaline Phosphatase 103 U/L (46-116) Total Protein 5.9 g/dL (6.4-8.2) Albumin 2.4 g/dL (3.4-5.0) Albumin/Globulin Ratio 0.7 (1.0-1.7) Review of Systems Constitutional: yes: weakness, alert, oriented Ears/Nose/Throat: Yes: no symptom reported Eyes: Yes: no symptom reported Pulmonary: Yes dyspnea Cardiovascular: Yes chest pain Gastrointestional: Yes: constipation Genitourinary: Yes: no symptom reported Musculoskeletal: Yes: no symptom reported Skin: Yes no symptom reported Psychiatric/Neurological: Yes: no symptom reported Endocrine: Yes: no symptom reported Physical Exam HEENT: Neck Supple W Full Motion Chest: Symmetric LUNGS: Clear to Auscultation Heart: S1S2, RRR, no thrills Abdomen: Soft N/T Extremities: Other (trace upper and LE edema bilaterally ) Neurology: alert, oriented, follow commands Assessment Assessment 1. Exertional dyspnea, multifactorial. Possible adult onset asthma 2. Acute on chronic diastolic CHF; LVEDP 20 mm Hg. S/p IVF prior to cath. Recent echo with preserved LV systolic function 3. CAD s/p PCI/ANSELMO to the LAD, LCx, and RCA 12/2014. Cath revealed 3VD with patent stents in the LAD/RCA and LCx. ASSOCIATE MARKETING MANAGER of small caliber branches in the LCx and RCA 4. THOMAS on CKD; Cr better 5. Pancytopenia 6. Hypertension; controlled 7. Hyperlipidemia; statin therapy 8. Diabetes, II 9. UTI Recommendations Lasix 40mg 3 times per week upon discharge. Secondary prevention measures Add Ranexa given CAD with ASSOCIATE MARKETING MANAGER and LOPEZ No BB with possible adult onset asthma. Consider intervention of ASSOCIATE MARKETING MANAGER if significant exertional dyspnea persists despite aggressive medical therapy. Would like to f/u with our service upon discharge as it is much more convenient for her. F/u in 2 weeks as scheduled with Dr. Dinh Plan Plan 1. Exertional dyspnea, multifactorial. Possible adult onset asthma 2. Acute on chronic diastolic CHF; Recent echo with preserved LV systolic function 3. 3V CAD; patent stents in the LAD/RCA, and LCx. ASSOCIATE MARKETING MANAGER of small caliber branches in the LCx and RCA 4. THOMAS on CKD; Cr improve, stable 5. Pancytopenia 6. Hypertension; controlled 7. Hyperlipidemia; statin therapy 8. Diabetes, II 9. GERD with episode of vomiting last night and this morning Recommendations PPI Secondary prevention measures Continue Ranexa Oral lasix 3 times per week F/u in 2 weeks as scheduled with MARGARETH Gardner APRN Aug 12, 2019 12:05
--- NOTE | 2019-08-12 12:48 | NUR ---
SS following up with discharge planning. Order for oxygen and 4-wheeled walker received. SS phoned and faxed scripts and clinical to [facility], ; fax [phone]. [facility] confirmed receipt of orders and clinical. [facility] reported that walker and oxygen equipment would be delivered to pt's home today. SS met with pt and spouse in room. SS provided pt and spouse with oxygen tank for home. Pt and spouse instructed to contact [facility] upon arrival home to set up delivery time. Pt's RN notified.
--- NOTE | 2019-08-12 12:53 | PDOC ---
SUBJECTIVE ROS Follow-up for acute on chronic renal insufficiency Patient apparently is ready to go home today. Denies any new signs or symptoms. OBJECTIVE Vital Signs Vital Signs Date Time Temp Pulse Resp B/P (MAP) Pulse Ox O2 Delivery O2 Flow Rate FiO2 08/12/19 11:08 98.4 74 20 146/64 (91) 99 Nasal Cannula 2.0 98.4 I & 0 Intake and Output 08/12/19 07:00 Intake Total 600 ml Output Total 1300 ml Balance -700 ml Intake Oral 600 ml Output Urine Total 1300 ml PHYSICAL EXAM Physical Exam General Appearance: Awake: Alert Oriented x 2-3 Neck: No JVD or JVP Chest: CTA Stan Heart: S1 S2 Abdomen - Soft NTND Extremities - No Edema DIAGNOSIS/ASSESSMENT Assessment & Plan ARF: Creatinine is slightly better with IV fluids as ordered. Watch with resumption of Lasix Underlying chronic kidney disease cannot be ruled out especially with now diagnosed smallish right kidney as well as long-standing tobacco use and possible hypertension. Await 24-hour urine collection results ANEMIA: She appears to be iron deficient currently. Continue oral iron and may eventually need hematology evaluation especially if she has persistent pancytopenia. SPEP negative for monoclonal protein. UPEP will need to be followed up. Pancytopenia due to possible liver dysfunction cannot be ruled out HTN: Current BP meds as reviewed. Defer to cardiology to optimize from that standpoint History of CHF: Defer to cardiology regarding timing of restarting diuretics. LV EF is preserved Lowish calcium now resolved If discharged, follow-up with us in 2-4 weeks Discussed Plan of Care with pt and at bedside COMMENT/RELEVANT DATA Meds Current Medications Medications (Trade) Dose Ordered Sig/Daya Start Time Stop Time Status Last Admin Dose Admin Acetaminophen (Tylenol) 650 mg PRN Q6HRS PRN 08/09/19 07:15 08/11/19 17:43 650 MG Acetaminophen/ Hydrocodone Bitart (Lortab 5/325) 1 tab PRN Q6HRS PRN 08/09/19 12:15 08/09/19 12:13 1 TAB Albuterol/ Ipratropium (Duoneb) 3 ml RTQID 08/07/19 16:00 08/12/19 09:52 3 ML Ascorbic Acid (Vitamin C) 500 mg DAILY 08/07/19 18:30 08/12/19 08:48 500 MG Aspirin (Children'S Aspirin) 81 mg DAILY 08/08/19 09:00 08/12/19 08:48 81 MG Atorvastatin Calcium (Lipitor) 10 mg QHS 08/07/19 21:00 08/11/19 20:48 10 MG Bismuth Subsalicylate (Pepto-Bismol) 262 mg PRN Q4HRS PRN 08/09/19 18:00 08/12/19 07:47 262 MG Ceftriaxone Sodium (Rocephin) 1 gm Q24H 08/10/19 18:00 08/11/19 18:01 DC 08/11/19 17:45 1 GM Dextrose (Dextrose 50%-Water Syringe) 12.5 gm PRN Q15MIN PRN 08/09/19 17:00 Docusate Sodium (Colace) 100 mg DAILY 08/11/19 14:00 08/12/19 08:48 100 MG Enoxaparin Sodium (Lovenox 30mg Syringe) 30 mg Q24H 08/07/19 14:00 08/11/19 14:07 30 MG Enoxaparin Sodium (Lovenox Per Pharmacy Prophylaxis Dosing) 1 each PRN DAILY PRN 08/07/19 13:15 Fentanyl Citrate (Fentanyl 2ml Vial) 100 mcg 1X ONCE 08/10/19 08:00 08/10/19 08:04 DC 08/10/19 08:00 50 MCG Ferrous Sulfate (Feosol) 325 mg TID 08/11/19 14:00 08/12/19 08:48 325 MG Furosemide (Lasix) 20 mg DAILY 08/08/19 09:00 08/09/19 10:46 DC 08/09/19 08:27 20 MG Guaifenesin (Robitussin Dm) 10 ml PRN Q6HRS PRN 08/07/19 13:30 08/10/19 23:27 10 ML Heparin Sodium (Porcine) (Heparin Sodium) 2,500 unit 1X ONCE 08/10/19 08:00 08/10/19 08:03 DC 08/10/19 08:00 2,500 UNIT Heparin Sodium/ Sodium Chloride (HEPARIN for ARTERIAL LINE FLUSH) 1,000 unit 1X ONCE 08/10/19 08:00 08/10/19 08:03 DC 08/10/19 08:00 1,000 UNIT Influenza Virus Vaccine Quadrival (Afluria Quad 2019-20 (3yr Up) Syringe) 0.5 ml ONCE ONCE 08/07/19 21:00 08/07/19 21:01 DC Insulin Glargine (Lantus Syringe) 20 unit QHS 08/07/19 21:00 08/11/19 20:54 20 UNIT Insulin Human Lispro (HumaLOG) 0-7 UNITS TIDWMEALS 08/09/19 17:00 08/09/19 17:17 4 UNITS Iodixanol (Visipaque 320) 100 ml 1X ONCE 08/10/19 08:00 08/10/19 08:04 DC 08/10/19 08:00 38 ML Lactobacillus Rhamnosus (Culturelle) 1 cap BID 08/08/19 21:00 08/12/19 08:48 1 CAP Levothyroxine Sodium (Synthroid) 150 mcg DAILYAC 08/08/19 07:30 08/12/19 07:45 150 MCG Lidocaine HCl (Xylocaine-Mpf 1% 2ml Vial) 2 ml 1X ONCE 08/10/19 08:00 08/10/19 08:04 DC 08/10/19 08:00 1 ML Linagliptin (Tradjenta) 5 mg DAILY 08/08/19 09:00 08/12/19 08:48 5 MG Losartan Potassium (Cozaar) 25 mg DAILY 08/09/19 09:00 08/12/19 08:47 25 MG Magnesium Sulfate 50 ml @ 25 mls/hr PRN DAILY PRN 08/10/19 12:15 Midazolam HCl (Versed) 2 mg 1X ONCE 08/10/19 08:00 08/10/19 08:03 DC 08/10/19 08:00 2 MG Multivitamins/ Minerals (I-Sravani) 1 tab DAILY 08/07/19 18:30 08/12/19 08:47 1 TAB Nitroglycerin (Nitroglycerin) 200 mcg 1X ONCE 08/10/19 08:00 08/10/19 08:03 DC 08/10/19 08:00 200 MCG Non-Formulary Medication (Alendronate Sodium ) 1 tab WEEKLY 08/14/19 09:00 UNV Oxybutynin Chloride (Ditropan) 5 mg BID 08/07/19 21:00 08/12/19 08:48 5 MG Pantoprazole Sodium (Protonix) 40 mg DAILYAC 08/08/19 07:30 08/12/19 07:45 40 MG Piperacillin Sod/ Tazobactam Sod (Zosyn Per Pharmacy) 1 each PRN DAILY PRN 08/07/19 13:15 08/09/19 12:48 DC Piperacillin Sod/ Tazobactam Sod 2.25 gm/Sodium Chloride 50 ml @ 100 mls/hr Q6HRS 08/07/19 14:00 08/09/19 12:48 DC 08/09/19 11:08 100 MLS/HR Potassium Chloride (Klor-Con) 40 meq 1X ONCE 08/09/19 11:00 08/09/19 11:01 DC 08/09/19 11:07 40 MEQ Ranolazine (Ranexa) 500 mg BID 08/11/19 21:00 08/12/19 08:47 500 MG Sodium Chloride 1,000 ml @ 75 mls/hr [id number] 08/09/19 12:00 08/11/19 12:12 DC 08/11/19 09:26 75 MLS/HR Throat Lozenges (Cepacol Sore Throat Lozenge) 1 jero PRN Q2HRS PRN 08/07/19 13:30 08/11/19 09:21 1 JERO Verapamil HCl (Verapamil) 2.5 mg 1X ONCE 08/10/19 08:00 08/10/19 08:03 DC 08/10/19 08:00 2.5 MG Vitamin D (Vitamin D3) 3,000 unit DAILY 08/08/19 09:00 08/12/19 08:48 3,000 UNIT Lab Laboratory Tests Test 08/11/19 17:14 08/11/19 20:33 08/12/19 04:45 08/12/19 07:50 Glucose (Fingerstick) 125 mg/dL (70-99) 130 mg/dL (70-99) 86 mg/dL (70-99) White Blood Count 3.1 x10^3/uL (4.0-11.0) Red Blood Count 2.76 x10^6/uL (3.50-5.40) Hemoglobin 8.8 g/dL (12.0-15.5) Hematocrit 27.0 % (36.0-47.0) Mean Corpuscular Volume 98 fL (79-100) Mean Corpuscular Hemoglobin 32 pg (25-35) Mean Corpuscular Hemoglobin Concent 33 g/dL (31-37) Red Cell Distribution Width 16.1 % (11.5-14.5) Platelet Count 90 x10^3/uL (140-400) Neutrophils (%) (Auto) 65 % (31-73) Lymphocytes (%) (Auto) 21 % (24-48) Monocytes (%) (Auto) 8 % (0-9) Eosinophils (%) (Auto) 5 % (0-3) Basophils (%) (Auto) 1 % (0-3) Neutrophils # (Auto) 2.0 x10^3/uL (1.8-7.7) Lymphocytes # (Auto) 0.6 x10^3/uL (1.0-4.8) Monocytes # (Auto) 0.3 x10^3/uL (0.0-1.1) Eosinophils # (Auto) 0.1 x10^3/uL (0.0-0.7) Basophils # (Auto) 0.0 x10^3/uL (0.0-0.2) Sodium Level 141 mmol/L (136-145) Potassium Level 4.3 mmol/L (3.5-5.1) Chloride Level 111 mmol/L (98-107) Carbon Dioxide Level 22 mmol/L (21-32) Anion Gap 8 (6-14) Blood Urea Nitrogen 15 mg/dL (7-20) Creatinine 1.3 mg/dL (0.6-1.0) Estimated GFR (Cockcroft-Gault) 40.2 BUN/Creatinine Ratio 12 (6-20) Glucose Level 123 mg/dL (70-99) Calcium Level 8.6 mg/dL (8.5-10.1) Phosphorus Level 4.1 mg/dL (2.6-4.7) Magnesium Level 1.9 mg/dL (1.8-2.4) Total Bilirubin 0.4 mg/dL (0.2-1.0) Aspartate Amino Transf (AST/SGOT) 26 U/L (15-37) Alanine Aminotransferase (ALT/SGPT) 13 U/L (14-59) Alkaline Phosphatase 103 U/L (46-116) Total Protein 5.9 g/dL (6.4-8.2) Albumin 2.4 g/dL (3.4-5.0) Albumin/Globulin Ratio 0.7 (1.0-1.7) Test 08/12/19 11:48 Glucose (Fingerstick) 113 mg/dL (70-99) Results All relevant outside records, renal labs, imaging studies, telemetry/EKG's were reviewed. SHAILESH BEAULIEU MD Aug 12, 2019 12:53
[2019-08-12] MEDS ORDERED: RANO500T2 PO (13:42)
[2019-08-12] MEDS ORDERED: FURO-68 PO (13:46)
--- NOTE | 2019-08-12 14:10 | NUR ---
Discharge Note: NATALIE STEARNS SHERMAN Discharge instructions and discharge home medications reviewed with Patient and a copy given. All questions have been answered and understanding verbalized. Follow up appointment information given to patient. Patient sent home with home oxygen tank for 2L with exertion. Prescription for Ranexa given to patient. The following instructions and handouts were given: Home oxygen use, Post cardiac catheterization instructions, and Ranexa Discontinued lines and drains: Peripheral IV intact. Patient discharged to Home or Self Care with Spouse via Wheelchair
--- NOTE | 2019-08-12 14:45 | PDOC ---
[employer] PROGRESS NOTE Chief Complaint Chief Complaint Chest pain and dyspnea THOMAS on CKD UTI COPD Lower extremity ulcers, painless History of Present Illness History of Present Illness 08/12/2019 Pt was seen and examined. Pt reports no acute distress and is ready for discharge. 08/11/2019 Pt was seen and examined. Pt reports doing well, and would be amenable to discharge. She has no acute complaints today. 08/10/2019 Ms Chavez is a 74 yo female w/ PMHx CHF, coronary stent placement for coronary artery disease, hypercholesterolemia, hypertension, COPD, asthma, GERD, hypothyroidism, chronic anemia, insomnia transferred from [facility] for cough, shortness of breath, and dizziness. Longstanding complaints, but has worsened. Follows with Dr. Somers of cardiology. No known fevers, but was febrile upon arrival. Yesterday, had episode of aching in her left chest. Radiated down and around to her abdomen. Eidson slightly nauseated and was dizzy. No diaphoresis or palpitations. No LE edema. She does have chronic LE wounds that are not painful but are large and ulcerated. 08/09: Had some low BP yesterday, improved with IVF and holding antihypertensives. Asymptomatic. Still a bit short of breath, chest pain improved somewhat. She is feeling better today. Still a bit short of breath with some chest di scomfort. Drowsy. Otherwise no complaints. NPO for cardiac cath today. Vitals/I&O Vitals/I&O: Vital Signs Date Time Temp Pulse Resp B/P (MAP) Pulse Ox O2 Delivery O2 Flow Rate FiO2 08/12/19 11:08 98.4 74 20 146/64 (91) 99 Nasal Cannula 2.0 98.4 I & O 08/11/19 08/11/19 08/12/19 15:00 23:00 07:00 Intake Total 400 ml 100 ml 100 ml Output Total 900 ml 400 ml Balance 400 ml -800 ml -300 ml Physical Exam General: Alert, Oriented X3, Cooperative Heart: Regular rate Lungs: Clear Abdomen: Normal bowel sounds, Soft Extremities: No clubbing, No edema Skin: No rashes, No breakdown Labs Labs: Laboratory Tests Test 08/11/19 17:14 08/11/19 20:33 08/12/19 04:45 08/12/19 07:50 Glucose (Fingerstick) 125 mg/dL (70-99) 130 mg/dL (70-99) 86 mg/dL (70-99) White Blood Count 3.1 x10^3/uL (4.0-11.0) Red Blood Count 2.76 x10^6/uL (3.50-5.40) Hemoglobin 8.8 g/dL (12.0-15.5) Hematocrit 27.0 % (36.0-47.0) Mean Corpuscular Volume 98 fL (79-100) Mean Corpuscular Hemoglobin 32 pg (25-35) Mean Corpuscular Hemoglobin Concent 33 g/dL (31-37) Red Cell Distribution Width 16.1 % (11.5-14.5) Platelet Count 90 x10^3/uL (140-400) Neutrophils (%) (Auto) 65 % (31-73) Lymphocytes (%) (Auto) 21 % (24-48) Monocytes (%) (Auto) 8 % (0-9) Eosinophils (%) (Auto) 5 % (0-3) Basophils (%) (Auto) 1 % (0-3) Neutrophils # (Auto) 2.0 x10^3/uL (1.8-7.7) Lymphocytes # (Auto) 0.6 x10^3/uL (1.0-4.8) Monocytes # (Auto) 0.3 x10^3/uL (0.0-1.1) Eosinophils # (Auto) 0.1 x10^3/uL (0.0-0.7) Basophils # (Auto) 0.0 x10^3/uL (0.0-0.2) Sodium Level 141 mmol/L (136-145) Potassium Level 4.3 mmol/L (3.5-5.1) Chloride Level 111 mmol/L (98-107) Carbon Dioxide Level 22 mmol/L (21-32) Anion Gap 8 (6-14) Blood Urea Nitrogen 15 mg/dL (7-20) Creatinine 1.3 mg/dL (0.6-1.0) Estimated GFR (Cockcroft-Gault) 40.2 BUN/Creatinine Ratio 12 (6-20) Glucose Level 123 mg/dL (70-99) Calcium Level 8.6 mg/dL (8.5-10.1) Phosphorus Level 4.1 mg/dL (2.6-4.7) Magnesium Level 1.9 mg/dL (1.8-2.4) Total Bilirubin 0.4 mg/dL (0.2-1.0) Aspartate Amino Transf (AST/SGOT) 26 U/L (15-37) Alanine Aminotransferase (ALT/SGPT) 13 U/L (14-59) Alkaline Phosphatase 103 U/L (46-116) Total Protein 5.9 g/dL (6.4-8.2) Albumin 2.4 g/dL (3.4-5.0) Albumin/Globulin Ratio 0.7 (1.0-1.7) Test 08/12/19 11:48 Glucose (Fingerstick) 113 mg/dL (70-99) Review of Systems Review of Systems: Denies CP Denies SOB Denies N/V/D Assessment and Plan Assessmemt and Plan Problems Medical Problems: (1) THOMAS (acute kidney injury) Status: Acute (2) Asthma Status: Chronic (3) Chest pain Status: Acute (4) CKD (chronic kidney disease), stage III Status: Chronic (5) COPD (chronic obstructive pulmonary disease) Status: Chronic (6) Dyspnea Status: Acute (7) Leg ulcer Status: Chronic (8) UTI (urinary tract infection) Status: Acute Chest pain and dyspnea THOMAS on CKD UTI COPD Lower extremity ulcers, painless Plan: 1) D/C today 2) Wrote patient a prescription for 2L O2 of nasal canula and 4 wheel walker 3) Advised pt follow up on 24H urine collection on an outpatient basis 4) Wrote patient a prescription for ranolazine and advised pt follow up with cardiology on an outpatient basis 5) Full Code 6) DVT prophylaxis Comment Review of Relevant I have reviewed the following items arian (where applicable) has been applied. Medications: Current Medications Medications (Trade) Dose Ordered Sig/Daya Route PRN Reason Start Time Stop Time Status Last Admin Dose Admin Ranolazine (Ranexa) 500 mg BID PO 08/11/19 21:00 08/12/19 14:13 DC 08/12/19 08:47 JEANNE CLARK III DO Aug 12, 2019 14:45
[2019-08-12 15:11] LABS: IMMUNOGLOBULIN A 175 mg/dL (64-422); IMMUNOGLOBULIN G 1042 mg/dL (700-1600); IMMUNOGLOBULIN M 69 mg/dL (26-217)
--- NOTE | 2019-08-13 12:05 | RESP ---
DATE OF SERVICE: 08/12/2019 ATTENDING PHYSICIAN: Nikki Nelson MD The patient underwent spirometry dated 08/12/2019. The FEV1 to FVC ratio was 84. FEV1 was diminished at 58% of predicted. FVC was diminished at 52% of predicted. There was no significant bronchodilator response. Noted that the effort was poor, spirometry is indicative of the possibility of restrictive process. Recommend full pulmonary function testing. CARLITOS BALLARD MD DR: AZIZA/nts JOB#: [id number] / [id number]
--- NOTE | 2019-08-13 22:39 | DS ---
DATE OF DISCHARGE: 08/12/2019 ADMISSION DIAGNOSIS: Chest pain. DISCHARGE DIAGNOSES: Atypical chest pain, chronic renal insufficiency. HOSPITAL COURSE: The patient is a pleasant 74-year-old female who presented with chest pain. She was admitted. We consulted Cardiology, did serial enzymes, serial EKGs. Her cardiac workup was negative. She also has some chronic renal failure with 24-hour urine was done, results are pending, but she looked great. We discharged to home with close outpatient followup. DISPOSITION: Home. ACTIVITY: As tolerated. DIET: Low sodium. MEDICATIONS: Please see MRAD. TOTAL TIME: 33 minutes. NIAL Rishi CLARK DO DR: Magnus JOB#: [id number] / [id number]
[2019-08-14] MEDS ORDERED: NON FORMULARY ITEM (Alendronate Sodium 1 TAB) PO SCH (09:00)
[2019-08-14 14:10] LABS: ALPHA 1 UR 8.8 % (.); ALPHA 2 UR 15.7 % (.); BETA UR 10.9 % (.); GAMMA UR 31.6 % (.); PROTEIN 24 UR 197 mg/24 hr (30-150); PROTEIN UR 12.1 mg/dL (Not Estab.)
== END 2019-08-12 14:10 | disposition home or self-care (01) | DRG 871 ==
LOC: 2 NORTH 10:43
PROVIDERS: ADMIT Internal Medicine; ATTEND Internal Medicine
PROC: 4A023N7 Measurement of Cardiac Sampling and Pressure, Left Heart, Percutaneous Approach (ICD-10-PCS; principal; 2019-08-10)
PROC: B211YZZ Fluoroscopy of Multiple Coronary Arteries using Other Contrast (ICD-10-PCS; 2019-08-10)
DX: A41.9 Sepsis, unspecified organism (principal); I50.43 Acute on chronic combined systolic (congestive) and diastolic (congestive) heart failure; I13.0 Hypertensive heart and chronic kidney disease with heart failure and stage 1 through stage 4 chronic kidney disease, or unspecified chronic kidney disease; N17.9 Acute kidney failure, unspecified; J44.1 Chronic obstructive pulmonary disease with (acute) exacerbation; D61.818 Other pancytopenia; I24.8 Other forms of acute ischemic heart disease; L97.909 Non-pressure chronic ulcer of unspecified part of unspecified lower leg with unspecified severity; N39.0 Urinary tract infection, site not specified; E03.9 Hypothyroidism, unspecified; E11.22 Type 2 diabetes mellitus with diabetic chronic kidney disease; R07.89 Other chest pain; E78.00 Pure hypercholesterolemia, unspecified; E78.5 Hyperlipidemia, unspecified; E83.42 Hypomagnesemia; N18.3 Chronic kidney disease, stage 3 (moderate); K21.9 Gastro-esophageal reflux disease without esophagitis; M19.90 Unspecified osteoarthritis, unspecified site; F17.201 Nicotine dependence, unspecified, in remission; Z88.2 Allergy status to sulfonamides; Z88.8 Allergy status to other drugs, medicaments and biological substances; Z82.49 Family history of ischemic heart disease and other diseases of the circulatory system; Z90.710 Acquired absence of both cervix and uterus; Z95.5 Presence of coronary angioplasty implant and graft
CPT/HCPCS: 36415; 71045; 76770; 80048; 80053; 80069; 81001; 82306; 82570; 82728; 82962; 83520; 83540; 83550; 83735; 84100; 84156; 84165; 84166; 85018; 85025; 85610; 86334; 87086; 93458; 94060; 94618; 94640; 94760; 99152; C1769; C1892; J0696; J1644; J1650; J1815; J2250; J2543; J3010; J3475; J3490; J7030; J7620; Q9967; G0378

== ENCOUNTER 2020-06-23 16:27 | Inpatient (IN) | payer MEDICARE ==
[~2020-06-23] VITALS: Ht 165.1 cm; Wt 85.7 kg
[2020-06-23 16:00] VITALS: BP 114/57
[~2020-06-23 16:27] MED LIST changes: +FURO-68 PO; -GLIM2TAB3 PO; +GLIM2TAB7 PO; +OXYB10TA26 PO; +RANO500T2 PO
[2020-06-23] MEDS ORDERED: FERR-36 PO (17:02)
[2020-06-23] MEDS ORDERED: INSU200I4 SQ (17:02)
[2020-06-23] MEDS ORDERED: INSU100I17 SQ (17:02)
[2020-06-23] MEDS ORDERED: CITA20TA6 PO (17:02)
[2020-06-23] MEDS ORDERED: FURO20TA3 PO (17:02)
[2020-06-23] MEDS ORDERED: PANTOPRAZOLE 40 MG TABLET.DR. PO ONE (17:30)
[2020-06-23] MEDS ORDERED: ACETAMINOPHEN 325 MG TABLET. PO PRN (17:30)
[2020-06-23] MEDS ORDERED: ONDANSETRON PF 4 MG/2 ML VIAL. IVP PRN (17:30)
[2020-06-23] MEDS ORDERED: LACTULOSE 20 GM/30 ML SOLUTION. PO PRN (17:30)
[2020-06-23] MEDS ORDERED: MORPHINE SULFATE 2 MG/ML VIAL. IV PRN (17:30)
--- NOTE | 2020-06-23 17:56 | PDOC1 ---
History and Physical Date of Admission Date of Admission DATE: 06/23/20 TIME: 17:27 Identification/Chief Complaint Chief Complaint Fatigue and lower GI bleed Source Source: Patient History of Present Illness History of Present Illness Ms Chavez is a 75-year-old female w/ PMHx DM2, Anxiety, Arthritis, CAD s/p stenting, CHF, COPD on chronic O2, Hypertension, hypothyroidism, chronic Renal Disease who presents with general fatigue over the last 6 months as well as recent onset abdominal pain. She states that over the last 6 months she has felt tired without explanation. She gave a stool sample 5 days ago which was found to have blood in it. She is unsure of when the abdominal pain began, but she locates it primarily in the right upper quadrant, left flank, and groin bilaterally. She affirms shortness of breath that is chronic and unchanged, and for which she is on 2 L of oxygen at home. She does note new fine tremor as well as intermittent confusion. CT abdomen with cirrhosis with stigmata of portal hypertension including unchanged splenomegaly. New small volume ascites, new wall thickening of the ascending colon is likely related to portal hypertension, severe calcified aortoiliac atherosclerosis, and increased small bilateral pleural effusions. Unchanged cardiomegaly and probable mild interstitial pulmonary edema. Labs significant for WBC 2, Hb 7.2, platelets 68, lipase 434 transferrin 242, NA 140, K4.2, BUN 21, CR 1.4, glucose 119. COVID-19 swab was sent at [facility] and was pending at time of acceptance of transfer and has since resulted negative. EKG - NSR with artifact versus A. fib cannot be determined with certainty at79 bpm, No ST elevation or depression, Normal T wave morphology, QRS 74 ms, QT 398 ms, [id number] She is made abundantly clear that she is a Protestant and is religiously opposed to blood transfusions but is amenable to iron transfusions if necessary. Past Medical History Cardiovascular: CAD, CHF, HTN, Hyperlipidemia GI: GERD Musculoskeletal: Osteoarthritis Renal/: UTI Endocrine: Diabetes, Hypothyroidism Past Surgical History Past Surgical History: Appendectomy, Cholecystectomy, Tonsillectomy, Hysterectomy, Other Family History Family History: No Significant Social History Smoke: Quit ALCOHOL: none Drugs: None Current Medications Current Medications Active Scripts Active Reported Citalopram Hbr (Citalopram Hydrobromide) 20 Mg Tablet 1 Tab PO DAILY Furosemide 20 Mg Tablet 1 Tab PO DAILY Iron (Ferrous Sulfate) 325 Mg Tablet 1 Tab PO DAILY 30 Days Tresiba Flextouch U-200 (Insulin Degludec) 200 Unit/1 Ml Insuln.pen 30 Unit SQ HS Novolog Flexpen (Insulin Aspart) 100 Unit/1 Ml Insuln.pen 10 Unit SQ TIDBFRMEAL Pravastatin Sodium 40 Mg Tablet 1 Tab PO QHS Protonix (Pantoprazole Sodium) 20 Mg Tablet.dr 40 Mg PO DAILY Tradjenta (Linagliptin) 5 Mg Tablet 5 Mg PO DAILY Levothyroxine Sodium 150 Mcg Tablet 150 Mcg PO DAILYAC Vitamin D3 (Cholecalciferol (Vitamin D3)) 1,000 Unit Tablet 3,000 Unit PO DAILY Aspirin 81 Mg Tab.chew 1 Tab PO DAILY Losartan Potassium 100 Mg Tablet 100 Mg PO DAILY Allergies Allergies: Coded Allergies: Sulfa (Sulfonamide Antibiotics) (Verified Allergy, Intermediate, rash, 05/21/19) niacin (Verified Allergy, Intermediate, 05/21/19) ROS General: YES: Fatigue, Malaise; No: Chills, Night Sweats, Appetite, Other PSYCHOLOGICAL ROS: No: Anxiety, Behavioral Disorder, Concentration difficultie, Decreased libido, Depression, Disorientation, Hallucinations, Hostility, Irritablity, Memory difficulties, Mood Swings, Obsessive thoughts, Physical abuse, Sexual abuse, Sleep disturbances, Suicidal ideation, Other Eyes: No Blurry vision, No Decreased vision, No Double vision, No Dry eyes, No Excessive tearing, No Eye Pain, No Itchy Eyes, No Loss of vision, No Photophobia, No Scotomata, No Uses contacts, No Uses glasses, No Other HEENT: No: Heacaches, Visual Changes, Hearing change, Nasal congestion, Nasal discharge, Oral lesions, Sinus pain, Sore Throat, Epistaxis, Sneezing, Snoring, Tinnitus, Vertigo, Vocal changes, Other ALLERGY AND IMMUNOLOGY: No: Hives, Insect Bite Sensitivity, Itchy/Watery Eyes, Nasal Congestion, Post Nasal Drip, Seasonal Allergies, Other Hematological and Lymphatic: No: Bleeding Problems, Blood Clots, Blood Transfusions, Brusing, Night Sweats, Pallor, Swollen Lymph Nodes, Other ENDOCRINE: No: Breast Changes, Galactorrhea, Hair Pattern Changes, Hot Flashes, Malaise/lethargy, Mood Swings, Palpitations, Polydipsia/polyuria, Skin Changes, Temperature Intolerance, Unexpected Weight Changes, Other Breast: No New/Changing Breast Lumps, No Nipple changes, No Nipple discharge, No Other Respiratory: No: Cough, Hemoptysis, Orthopnea, Pleuritic Pain, Shortness of breath, SOB with excertion, Sputum Changes, Stridor, Tachypnea, Wheezing, Other Cardiovascular: No Chest Pain, No Palpitations, No Orthopnea, No Paroxysmal Noc. Dyspnea, No Edema, No Lt Headedness, No Other Gastrointestinal: Yes Abdominal Pain; No Nausea, No Vomiting, No Diarrhea, No Constipation, No Melena, No Hematochezia, No Other Genitourinary: No Dysuria, No Frequency, No Incontinence, No Hematuria, No Retention, No Discharge, No Urgency, No Pain, No Flank Pain, No Other, No , No , No , No , No , No , No Musculoskeletal: Yes Gait Disturbance, Yes Muscular Weakness; No Joint Pain, No Joint Stiffness, No Joint Swelling, No Muscle Pain, No Pain In:, No Swelling In:, No Other Neurological: Yes Confusion; No Behavorial Changes, No Bowel/Bladder ControlChng, No Dizziness, No Gait Disturbance, No Headaches, No Impaired Coord/balance, No Memory Loss, No Numbness/Tingling, No Seizures, No Speech Problems, No Tremors, No Visual Changes, No Weakness, No Other Skin: Yes Skin Lesion Changes; No Dry Skin, No Eczema, No Hair Changes, No Lumps, No Mole Changes, No Mottling, No Nail Changes, No Pruritus, No Rash, No Other, No Acne Physical Exam General: Alert, Cooperative, No acute distress HEENT: Atraumatic, PERRLA, EOMI, Mucous membr. moist/pink Lungs: Other (Scattered wheezes) Heart: S1S2, RRR, no thrills, no rubs Abdomen: Normal bowel sounds, Soft, No tenderness, No hepatosplenomegaly, No masses Rectal Exam: not examined Extremities: No clubbing, No cyanosis, No edema, Normal pulses, No tenderness/swelling Skin: No breakdown, No significant lesion Neuro: Normal speech, Strength at 5/5 X4 ext, Normal tone, Sensation intact, Cranial nerves 3-12 NL, Reflexes 2+ Psych/Mental Status: Other (Slightly confused) Images Images CT abdomen/pelvis: Lower chest: Increased small left and tiny right pleural effusion. Unchanged interlobular septal thickening in the lung bases. Unchanged 8 mm nodular opacity in the inferior right middle lobe along the minor fissure. Mild cardiomegaly is unchanged. Two right cardiophrenic lymph node measuring up to 7 mm short axis are unchanged, nonspecific. Liver: The liver is unchanged in appearance with nodular contour. The main portal vein is enlarged measuring 1.5 cm, unchanged. The periumbilical vein is recanalized. Gallbladder/Biliary Tree: Gallbladder is not visualized. No biliary duct dilatation. Pancreas: Normal. Spleen: Unchanged splenomegaly with the spleen measuring 15 cm in AP diameter. Adrenal Glands: Normal. Kidneys/Ureters/Bladder: No hydronephrosis or nephrolithiasis. Ureters and bladder are normal. Reproductive Organs: Uterus is surgically absent. No adnexal mass. Stomach, small bowel, and colon: The stomach and small bowel are normal. There is new wall thickening of the ascending colon. Vasculature: Severe calcified aortoiliac atherosclerosis including bree cifications at abdominal branch origins. No abdominal aortic aneurysm. Lymph Nodes: No lymphadenopathy. Peritoneum and retroperitoneum: New small volume of ascites. No free air. Bones: The bones are diffusely demineralized. Chronic mild wedging of T12 and L1 is unchanged. Lumbar scoliosis, multilevel degenerative disc disease and canal narrowing redemonstrated. Canal narrowing is greatest at L3-L4 where it appears severe. Moderate osteoarthrosis of the hips. Impression: 1. Cirrhosis with stigmata of portal hypertension including unchanged splenomegaly. New small volume ascites. 2. New wall thickening of the ascending colon is likely related to portal hypertension. 3. Severe calcified aortoiliac atherosclerosis. 4. Increased small bilateral pleural effusions. Unchanged cardiomegaly and probable mild interstitial pulmonary edema. VTE Prophylaxis Ordered VTE Prophylaxis Devices: Yes VTE Pharmacological Prophylaxi: Yes Assessment/Plan Assessment/Plan A/P: Acute blood loss anemia - will check iron studies. Protonix IV. clear liquid diet, npo after midnight. GI consulted Cirrhosis - by CT with varices apparent. Patient notes she is not aware of diagnosis though workup has been previously performed. GI consulted. Lactulose ordered. DM2 - insulin sliding scale Anxiety - cont celexa CAD s/p stenting - stable CHF - stable currently,will monitor, diastolic by history COPD on chronic O2 - cont O2, prn nebs Hypertension - cont meds, monitor Hypothyroidism - cont meds Chronic Renal Disease - monitor Lower extremity ulcers - they are painless, have been present for a while Generalized weakness - likely related to anemia, cirrhosis Pancytopenia - will monitor, likely related to cirrhosis, will consult heme/onc COPD - will order home nebulizers Suspected 2018 novel coronavirus infection - test resulted negative FEN - clear liquid diet PPX - SCDs, ppi FULL CODE Dispo - inpatient telemetry for above Justifications for Admission Other Justification JUDY REYNAGA MD Jun 23, 2020 17:56
[2020-06-23] MEDS: IPRATRPIUM/ALBUTEROL 0.5/2.5MG 3 ML NEBU. NEB SCH (18:00)
[2020-06-23 19:00] VITALS: BP 126/60
--- NOTE | 2020-06-23 19:30 | NUR ---
Pt in bed assessment completed vss poc explained pt denied pain at this time will resume care and continue to monitor pt.Call light in reach.
[2020-06-23] MEDS ORDERED: INSULIN GLARGINE SYRINGE. SQ SCH (21:00)
[2020-06-23] MEDS: DOCUSATE SODIUM 100 MG CAPSULE. PO SCH ×2 (21:00→21:21)
--- NOTE | 2020-06-23 21:36 | NUR ---
Pt refused 2100 dose of colace.
[2020-06-23 23:27] VITALS: BP 113/56
[2020-06-24 02:44] VITALS: BP 115/57
[2020-06-24 03:43] LABS: BASO % 2 % (0-3); EOS # 0.2 x10^3/uL (0.0-0.7); EOS % 9 % (0-3); HEMATOCRIT 21.8 % (36.0-47.0); LYMPH # 0.8 x10^3/uL (1.0-4.8); LYMPH % 43 % (24-48); MEAN CORPUSCULAR HEMOGLOBIN 33 pg (25-35); MEAN CORPUSCULAR HGB CONC 31 g/dL (31-37); MEAN CORPUSCULAR VOLUME 106 fL (79-100); MONO # 0.2 x10^3/uL (0.0-1.1); MONO % 9 % (0-9); NEUT # 0.7 x10^3/uL (1.8-7.7); NEUT % 39 % (31-73); PLATELET COUNT 60 x10^3/uL (140-400); RED BLOOD COUNT 2.06 x10^6/uL (3.50-5.40)
[2020-06-24 03:50] LABS: PROTHROMBIN TIME PATIENT 15.7 SEC (11.7-14.0)
[2020-06-24 03:59] LABS: ALBUMIN 2.3 g/dL (3.4-5.0); ALBUMIN/GLOBULIN RATIO 0.8 (1.0-1.7); CREATININE 1.5 mg/dL (0.6-1.0); GFR 33.9; POTASSIUM 4.1 mmol/L (3.5-5.1); TOTAL BILIRUBIN 0.6 mg/dL (0.2-1.0); TOTAL PROTEIN 5.2 g/dL (6.4-8.2)
[2020-06-24 04:01] LABS: HEMOGLOBIN 6.7 g/dL (12.0-15.5); WHITE BLOOD COUNT 1.8 x10^3/uL (4.0-11.0)
[2020-06-24 04:24] LABS: % BANDS 1 % (0-9); % BASOS 2 % (0-3); % EOS 7 % (0-5); % LYMPHS 41 % (24-48); % MONOS 6 % (0-10); % SEGS 43 % (35-66); ANISOCYTOSIS SLIGHT; PLT ESTIMATE DECREASED (ADEQUATE); POLYCHROMASIA SLIGHT
[2020-06-24] MEDS: IPRATRPIUM/ALBUTEROL 0.5/2.5MG 3 ML NEBU. NEB SCH ×3 (06:38→16:00)
[2020-06-24 07:00] VITALS: BP 101/54
[2020-06-24] MEDS ORDERED: PANTOPRAZOLE 40 MG TABLET.DR. PO SCH (07:30)
[2020-06-24] MEDS ORDERED: LEVOTHYROXINE 150 MCG TABLET PO SCH (07:30)
[2020-06-24] MEDS ORDERED: LOSARTAN POTASSIUM 50 MG TABLET. PO SCH (09:00)
[2020-06-24] MEDS ORDERED: CITALOPRAM 20 MG TABLET. PO SCH (09:00)
[2020-06-24] MEDS ORDERED: CHOLECALCIFEROL (VITAMIN D3) 1,000 UNIT TABLET PO SCH (09:00)
[2020-06-24] MEDS: DOCUSATE SODIUM 100 MG CAPSULE. PO SCH (09:11)
[2020-06-24 11:00] VITALS: BP 106/51
--- NOTE | 2020-06-24 11:48 | PDOC ---
[employer] PROGRESS NOTE Date of Service DOS: DATE: 06/24/20 TIME: 11:42 Chief Complaint Chief Complaint Weakness, bloody stools History of Present Illness History of Present Illness Patient still reports some weakness. She had a bowel movement without blood in it this morning. She has a history of anemia. GI to perform endoscopy. Discussed goals of care with patient, she states she would not want aggressive resuscitation methods. Discussed with RN. Vitals/I&O Vitals/I&O: Vital Signs Date Time Temp Pulse Resp B/P (MAP) Pulse Ox O2 Delivery O2 Flow Rate FiO2 06/24/20 11:00 97.8 68 17 106/51 (69) 95 Nasal Cannula 3.0 97.8 I & O 06/23/20 06/23/20 06/24/20 15:00 23:00 07:00 Intake Total 100 ml 100 ml Output Total 50 ml 300 ml Balance 50 ml -200 ml Physical Exam General: Alert, Cooperative, No acute distress Lungs: Clear Abdomen: Normal bowel sounds, Soft, No tenderness, No hepatosplenomegaly, No masses Extremities: No clubbing, No cyanosis, No edema, Normal pulses, No tenderness/swelling Skin: No breakdown, No significant lesion Labs Labs: Laboratory Tests Test 06/23/20 21:25 06/24/20 03:30 06/24/20 07:26 06/24/20 10:52 Glucose (Fingerstick) 111 mg/dL (70-99) 68 mg/dL (70-99) 91 mg/dL (70-99) White Blood Count 1.8 x10^3/uL (4.0-11.0) Red Blood Count 2.06 x10^6/uL (3.50-5.40) Hemoglobin 6.7 g/dL (12.0-15.5) Hematocrit 21.8 % (36.0-47.0) Mean Corpuscular Volume 106 fL (79-100) Mean Corpuscular Hemoglobin 33 pg (25-35) Mean Corpuscular Hemoglobin Concent 31 g/dL (31-37) Red Cell Distribution Width 19.0 % (11.5-14.5) Platelet Count 60 x10^3/uL (140-400) Neutrophils (%) (Auto) 39 % (31-73) Lymphocytes (%) (Auto) 43 % (24-48) Monocytes (%) (Auto) 9 % (0-9) Eosinophils (%) (Auto) 9 % (0-3) Basophils (%) (Auto) 2 % (0-3) Neutrophils # (Auto) 0.7 x10^3/uL (1.8-7.7) Lymphocytes # (Auto) 0.8 x10^3/uL (1.0-4.8) Monocytes # (Auto) 0.2 x10^3/uL (0.0-1.1) Eosinophils # (Auto) 0.2 x10^3/uL (0.0-0.7) Basophils # (Auto) 0.0 x10^3/uL (0.0-0.2) Segmented Neutrophils % 43 % (35-66) Band Neutrophils % 1 % (0-9) Lymphocytes % 41 % (24-48) Monocytes % 6 % (0-10) Eosinophils % 7 % (0-5) Basophils % 2 % (0-3) Platelet Estimate Decreased (ADEQUATE) Polychromasia Slight Anisocytosis Slight Macrocytosis Slight Prothrombin Time 15.7 SEC (11.7-14.0) Prothromb Time International Ratio 1.3 (0.8-1.1) Sodium Level 145 mmol/L (136-145) Potassium Level 4.1 mmol/L (3.5-5.1) Chloride Level 112 mmol/L (98-107) Carbon Dioxide Level 24 mmol/L (21-32) Anion Gap 9 (6-14) Blood Urea Nitrogen 22 mg/dL (7-20) Creatinine 1.5 mg/dL (0.6-1.0) Estimated GFR (Cockcroft-Gault) 33.9 BUN/Creatinine Ratio 15 (6-20) Glucose Level 82 mg/dL (70-99) Calcium Level 8.0 mg/dL (8.5-10.1) Iron Level 28 ug/dL (50-170) Total Iron Binding Capacity 282 ug/dL (250-450) Iron Saturation 10 % (15-34) Ferritin 94 ng/mL (8-252) Total Bilirubin 0.6 mg/dL (0.2-1.0) Aspartate Amino Transf (AST/SGOT) 29 U/L (15-37) Alanine Aminotransferase (ALT/SGPT) 19 U/L (14-59) Alkaline Phosphatase 97 U/L (46-116) Total Protein 5.2 g/dL (6.4-8.2) Albumin 2.3 g/dL (3.4-5.0) Albumin/Globulin Ratio 0.8 (1.0-1.7) Vitamin B12 Level 379 pg/mL (247-911) Review of Systems Review of Systems: Weakness, shortness of breath. Denies chest pain, denies nausea, denies vomiting, denies fever. Assessment and Plan Assessmemt and Plan Patient still refusing blood transfusions. Plan for induction endoscopy per GI. Discussed goals of care with patient. Total time spent with patient 35 minutes, greater than 50% of this time was spent counseling and coordinating care. Problems: (1) Pancytopenia (2) COPD (chronic obstructive pulmonary disease) (3) GI bleed Comment Review of Relevant I have reviewed the following items arian (where applicable) has been applied. Medications: Current Medications Medications (Trade) Dose Ordered Sig/Daya Route PRN Reason Start Time Stop Time Status Last Admin Dose Admin Docusate Sodium (Colace) 100 mg BID PO 06/23/20 21:00 06/24/20 09:11 Pantoprazole Sodium (Protonix) 40 mg 1X ONCE PO 06/23/20 17:30 06/23/20 17:35 DC 06/23/20 18:30 Pantoprazole Sodium (Protonix) 40 mg DAILYAC PO 06/24/20 07:30 06/24/20 09:12 Vitamin D (Vitamin D3) 3,000 unit DAILY PO 06/24/20 09:00 06/24/20 09:11 Citalopram Hydrobromide (CeleXA) 20 mg DAILY PO 06/24/20 09:00 06/24/20 09:11 Levothyroxine Sodium (Synthroid) 150 mcg DAILYAC PO 06/24/20 07:30 06/24/20 09:11 Insulin Glargine (Lantus Syringe) 30 unit QHS SQ 06/23/20 21:00 06/23/20 21:35 Losartan Potassium (Cozaar) 100 mg DAILY PO 06/24/20 09:00 06/24/20 09:12 Justifications for Admission Other Justification CLAUDIA ARDON MD Jun 24, 2020 11:48
--- NOTE | 2020-06-24 14:10 | PDOC2 ---
CONSULT Date of Consult Date of Consult DATE: 06/24/20 TIME: 13:46 Reason for Consult Reason for Consult: Falling hemoglobin/blood in stool. Referring Physician Referring Physician: Gael Identification/Chief Complaint Chief Complaint Anemia History of Present Illness Reason for Visit: 75 y/o female known to me. Admitted to [facility] initially, then transferred here for evaluation of pancytopenia and question of GI bleeding. Seen twice in 2019, developing anemia between October and May. EGD in May with barely visible varices and portal gastropathy. Colonoscopy with a vew small polyps and internal hemorrhoids. Polyps were adenomas. Prior to coming here did see some BRB with otherwise normal stool; this has not recurred. Has been on iron, therefore dark stools when takes. Hemoglobin has fallen progressively at [facility] from December to now. Noted to have pancytopenia from ~October 2018. Splenomegaly noted on imaging and felt to be cause. Has cirrhosis felt to be on basis of BASS from prior w/u. History of clinical GERD on daily PPI. No dysphagia, PUD, pancreatic issues. S/p starr. No tobacco or alcohol use. Denies diarrhea, constipation or abdominal pain. Unfortunately is a Gnosticism and declines blood transfusions. Past Medical History Cardiovascular: CAD, CHF, HTN, Hyperlipidemia Musculoskeletal: Osteoarthritis Renal/: Chronic renal insuff, UTI Endocrine: Diabetes, Hypothyroidism Past Surgical History Past Surgical History: Appendectomy, Cholecystectomy, Tonsillectomy, Hysterectomy, Other (coronary stenting) Family History Family History: No Significant (No GI-related issues.) Social History Quit ALCOHOL: none Drugs: None Lives: with Family Current Medications Current Medications Current Medications Ondansetron HCl (Zofran) 4 mg PRN Q6HRS PRN IVP NAUSEA/VOMITING; Start 06/23/20 at 17:30 Morphine Sulfate (Morphine Sulfate) 2 mg PRN Q1HR PRN IV PAIN; Start 06/23/20 at 17:30 Acetaminophen (Tylenol) 650 mg PRN Q6HRS PRN PO Headaches, Temp > 101.5F; Start 06/23/20 at 17:30 Docusate Sodium (Colace) 100 mg BID PO Last administered on 06/24/20at 09:11; Start 06/23/20 at 21:00 Lactulose (Lactulose) 20 gm PRN Q12HR PRN PO CONSTIPATION; Start 06/23/20 at 17:30 Pantoprazole Sodium (Protonix) 40 mg 1X ONCE PO Last administered on 06/23/20at 18:30; Start 06/23/20 at 17:30; Stop 06/23/20 at 17:35; Status DC Pantoprazole Sodium (Protonix) 40 mg DAILYAC PO Last administered on 06/24/20at 09:12; Start 06/24/20 at 07:30 Vitamin D (Vitamin D3) 3,000 unit DAILY PO Last administered on 06/24/20at 09:11; Start 06/24/20 at 09:00 Citalopram Hydrobromide (CeleXA) 20 mg DAILY PO Last administered on 06/24/20at 09:11; Start 06/24/20 at 09:00 Levothyroxine Sodium (Synthroid) 150 mcg DAILYAC PO Last administered on 06/24/20at 09:11; Start 06/24/20 at 07:30 Insulin Glargine (Lantus Syringe) 30 unit QHS SQ Last administered on 06/23/20at 21:35; Start 06/23/20 at 21:00 Losartan Potassium (Cozaar) 100 mg DAILY PO Last administered on 06/24/20at 09:12; Start 06/24/20 at 09:00 Albuterol/ Ipratropium (Duoneb) 3 ml RTQID NEB ; Start 06/23/20 at 20:00 Active Scripts Active Reported Citalopram Hbr (Citalopram Hydrobromide) 20 Mg Tablet 1 Tab PO DAILY Furosemide 20 Mg Tablet 1 Tab PO DAILY Iron (Ferrous Sulfate) 325 Mg Tablet 1 Tab PO DAILY 30 Days Tresiba Flextouch U-200 (Insulin Degludec) 200 Unit/1 Ml Insuln.pen 30 Unit SQ HS Novolog Flexpen (Insulin Aspart) 100 Unit/1 Ml Insuln.pen 10 Unit SQ TIDBFRMEAL Pravastatin Sodium 40 Mg Tablet 1 Tab PO QHS Protonix (Pantoprazole Sodium) 20 Mg Tablet.dr 40 Mg PO DAILY Tradjenta (Linagliptin) 5 Mg Tablet 5 Mg PO DAILY Levothyroxine Sodium 150 Mcg Tablet 150 Mcg PO DAILYAC Vitamin D3 (Cholecalciferol (Vitamin D3)) 1,000 Unit Tablet 3,000 Unit PO DAILY Aspirin 81 Mg Tab.chew 1 Tab PO DAILY Losartan Potassium 100 Mg Tablet 100 Mg PO DAILY Allergies Allergies: Coded Allergies: Sulfa (Sulfonamide Antibiotics) (Verified Allergy, Intermediate, rash, 05/21/19) niacin (Verified Allergy, Intermediate, 05/21/19) ROS Review of System Otherwise negative 10-point review. Physical Exam General: Alert, Oriented X3, Cooperative, No acute distress HEENT: Atraumatic, PERRLA, EOMI Lungs: Clear to auscultation Heart: Regular rate, Normal S1, Normal S2, No murmurs, Gallops Abdomen: Normal bowel sounds, Soft, No tenderness, No hepatosplenomegaly (spleen not easily palpable due to body habitus), No masses Extremities: No cyanosis, No edema, No tenderness/swelling Skin: No significant lesion Neuro: Normal gait, Normal speech, Strength at 5/5 X4 ext, Normal tone, Sensation intact, Cranial nerves 3-12 NL, Reflexes 2+ Psych/Mental Status: Mental status NL, Mood NL MUSCULOSKELETAL: No deformity, No swelling Vitals VITALS Vital Signs Date Time Temp Pulse Resp B/P (MAP) Pulse Ox O2 Delivery O2 Flow Rate FiO2 06/24/20 11:00 97.8 68 17 106/51 (69) 95 Nasal Cannula 3.0 97.8 Labs Labs Laboratory Tests Test 06/23/20 21:25 06/24/20 03:30 06/24/20 07:26 06/24/20 10:52 Glucose (Fingerstick) 111 mg/dL (70-99) 68 mg/dL (70-99) 91 mg/dL (70-99) White Blood Count 1.8 x10^3/uL (4.0-11.0) Red Blood Count 2.06 x10^6/uL (3.50-5.40) Hemoglobin 6.7 g/dL (12.0-15.5) Hematocrit 21.8 % (36.0-47.0) Mean Corpuscular Volume 106 fL (79-100) Mean Corpuscular Hemoglobin 33 pg (25-35) Mean Corpuscular Hemoglobin Concent 31 g/dL (31-37) Red Cell Distribution Width 19.0 % (11.5-14.5) Platelet Count 60 x10^3/uL (140-400) Neutrophils (%) (Auto) 39 % (31-73) Lymphocytes (%) (Auto) 43 % (24-48) Monocytes (%) (Auto) 9 % (0-9) Eosinophils (%) (Auto) 9 % (0-3) Basophils (%) (Auto) 2 % (0-3) Neutrophils # (Auto) 0.7 x10^3/uL (1.8-7.7) Lymphocytes # (Auto) 0.8 x10^3/uL (1.0-4.8) Monocytes # (Auto) 0.2 x10^3/uL (0.0-1.1) Eosinophils # (Auto) 0.2 x10^3/uL (0.0-0.7) Basophils # (Auto) 0.0 x10^3/uL (0.0-0.2) Segmented Neutrophils % 43 % (35-66) Band Neutrophils % 1 % (0-9) Lymphocytes % 41 % (24-48) Monocytes % 6 % (0-10) Eosinophils % 7 % (0-5) Basophils % 2 % (0-3) Platelet Estimate Decreased (ADEQUATE) Polychromasia Slight Anisocytosis Slight Macrocytosis Slight Prothrombin Time 15.7 SEC (11.7-14.0) Prothromb Time International Ratio 1.3 (0.8-1.1) Sodium Level 145 mmol/L (136-145) Potassium Level 4.1 mmol/L (3.5-5.1) Chloride Level 112 mmol/L (98-107) Carbon Dioxide Level 24 mmol/L (21-32) Anion Gap 9 (6-14) Blood Urea Nitrogen 22 mg/dL (7-20) Creatinine 1.5 mg/dL (0.6-1.0) Estimated GFR (Cockcroft-Gault) 33.9 BUN/Creatinine Ratio 15 (6-20) Glucose Level 82 mg/dL (70-99) Calcium Level 8.0 mg/dL (8.5-10.1) Iron Level 28 ug/dL (50-170) Total Iron Binding Capacity 282 ug/dL (250-450) Iron Saturation 10 % (15-34) Ferritin 94 ng/mL (8-252) Total Bilirubin 0.6 mg/dL (0.2-1.0) Aspartate Amino Transf (AST/SGOT) 29 U/L (15-37) Alanine Aminotransferase (ALT/SGPT) 19 U/L (14-59) Alkaline Phosphatase 97 U/L (46-116) Total Protein 5.2 g/dL (6.4-8.2) Albumin 2.3 g/dL (3.4-5.0) Albumin/Globulin Ratio 0.8 (1.0-1.7) Vitamin B12 Level 379 pg/mL (247-911) Laboratory Tests Test 06/23/20 21:25 06/24/20 03:30 06/24/20 07:26 06/24/20 10:52 Glucose (Fingerstick) 111 mg/dL (70-99) 68 mg/dL (70-99) 91 mg/dL (70-99) White Blood Count 1.8 x10^3/uL (4.0-11.0) Red Blood Count 2.06 x10^6/uL (3.50-5.40) Hemoglobin 6.7 g/dL (12.0-15.5) Hematocrit 21.8 % (36.0-47.0) Mean Corpuscular Volume 106 fL (79-100) Mean Corpuscular Hemoglobin 33 pg (25-35) Mean Corpuscular Hemoglobin Concent 31 g/dL (31-37) Red Cell Distribution Width 19.0 % (11.5-14.5) Platelet Count 60 x10^3/uL (140-400) Neutrophils (%) (Auto) 39 % (31-73) Lymphocytes (%) (Auto) 43 % (24-48) Monocytes (%) (Auto) 9 % (0-9) Eosinophils (%) (Auto) 9 % (0-3) Basophils (%) (Auto) 2 % (0-3) Neutrophils # (Auto) 0.7 x10^3/uL (1.8-7.7) Lymphocytes # (Auto) 0.8 x10^3/uL (1.0-4.8) Monocytes # (Auto) 0.2 x10^3/uL (0.0-1.1) Eosinophils # (Auto) 0.2 x10^3/uL (0.0-0.7) Basophils # (Auto) 0.0 x10^3/uL (0.0-0.2) Segmented Neutrophils % 43 % (35-66) Band Neutrophils % 1 % (0-9) Lymphocytes % 41 % (24-48) Monocytes % 6 % (0-10) Eosinophils % 7 % (0-5) Basophils % 2 % (0-3) Platelet Estimate Decreased (ADEQUATE) Polychromasia Slight Anisocytosis Slight Macrocytosis Slight Prothrombin Time 15.7 SEC (11.7-14.0) Prothromb Time International Ratio 1.3 (0.8-1.1) Sodium Level 145 mmol/L (136-145) Potassium Level 4.1 mmol/L (3.5-5.1) Chloride Level 112 mmol/L (98-107) Carbon Dioxide Level 24 mmol/L (21-32) Anion Gap 9 (6-14) Blood Urea Nitrogen 22 mg/dL (7-20) Creatinine 1.5 mg/dL (0.6-1.0) Estimated GFR (Cockcroft-Gault) 33.9 BUN/Creatinine Ratio 15 (6-20) Glucose Level 82 mg/dL (70-99) Calcium Level 8.0 mg/dL (8.5-10.1) Iron Level 28 ug/dL (50-170) Total Iron Binding Capacity 282 ug/dL (250-450) Iron Saturation 10 % (15-34) Ferritin 94 ng/mL (8-252) Total Bilirubin 0.6 mg/dL (0.2-1.0) Aspartate Amino Transf (AST/SGOT) 29 U/L (15-37) Alanine Aminotransferase (ALT/SGPT) 19 U/L (14-59) Alkaline Phosphatase 97 U/L (46-116) Total Protein 5.2 g/dL (6.4-8.2) Albumin 2.3 g/dL (3.4-5.0) Albumin/Globulin Ratio 0.8 (1.0-1.7) Vitamin B12 Level 379 pg/mL (247-911) Pancytopenic, GRISELDA. Images Images None here to view. At [facility], CT with old portal HTN/cirrhosis/splenomegaly changes. Mentions ascites, but I don't see meaningful amount. Assessment/Plan Assessment/Plan IMP: Pancytopenia. Some if not all likely related to hypersplenism. GRISELDA; this implies an underlying component of chronic blood loss. Have no doubt she chronically bleeds slowly. Some from portal gastropathy. Could also have unseen AVM's contributing. Would not surprise me if chronically heme- positive. Recent overt bleeding c/w known hemorrhoids. GERD/minimal change at EGD. Cirrhosis/portal hypertension, likely related to BASS. S/p starr for calculous disease. H/o colon polyps, adenomatous. REC; If will accept transfusion would do. Chronic po iron tid. Occasional IV iron OK as well. Erythropoietin analogue? B12 and folate supplements. PO PPI. OK with me to feed; have no plans to 'scope unless meaningful overt bleeding. Thank you for allowing me to assist in the care of this patient. Please call if questions. SUKUMAR MA MD Jun 24, 2020 14:10
[2020-06-24 15:00] VITALS: BP 110/54
[2020-06-24] MEDS ORDERED: CYANOCOBALAMIN (VITAMIN B-12) 1,000 MCG TABLET. PO SCH (15:00)
[2020-06-24] MEDS ORDERED: FOLIC ACID 1 MG TABLET. PO SCH (15:00)
[2020-06-24] MEDS ORDERED: FERROUS SULFATE 325 MG TABLET. PO SCH (16:30)
--- NOTE | 2020-06-24 16:50 | PDOC3 ---
Discharge Summary Visit Information Date of Admission: Jun 23, 2020 Date of Discharge: Jun 24, 2020 Final Diagnosis Lower GI bleed Brief Hospital Course Allergies Allergies Coded Allergies Type Severity Reaction Last Updated Verified Sulfa (Sulfonamide Antibiotics) Allergy Intermediate rash 05/21/19 Yes niacin Allergy Intermediate 05/21/19 Yes Vital Signs Vital Signs Date Time Temp Pulse Resp B/P (MAP) Pulse Ox O2 Delivery O2 Flow Rate FiO2 06/24/20 15:00 97.8 62 17 110/54 (72) 96 Nasal Cannula 2.0 97.8 Lab Results Laboratory Tests Test 06/23/20 21:25 06/24/20 03:30 06/24/20 07:26 06/24/20 10:52 Glucose (Fingerstick) 111 mg/dL (70-99) 68 mg/dL (70-99) 91 mg/dL (70-99) White Blood Count 1.8 x10^3/uL (4.0-11.0) Red Blood Count 2.06 x10^6/uL (3.50-5.40) Hemoglobin 6.7 g/dL (12.0-15.5) Hematocrit 21.8 % (36.0-47.0) Mean Corpuscular Volume 106 fL (79-100) Mean Corpuscular Hemoglobin 33 pg (25-35) Mean Corpuscular Hemoglobin Concent 31 g/dL (31-37) Red Cell Distribution Width 19.0 % (11.5-14.5) Platelet Count 60 x10^3/uL (140-400) Neutrophils (%) (Auto) 39 % (31-73) Lymphocytes (%) (Auto) 43 % (24-48) Monocytes (%) (Auto) 9 % (0-9) Eosinophils (%) (Auto) 9 % (0-3) Basophils (%) (Auto) 2 % (0-3) Neutrophils # (Auto) 0.7 x10^3/uL (1.8-7.7) Lymphocytes # (Auto) 0.8 x10^3/uL (1.0-4.8) Monocytes # (Auto) 0.2 x10^3/uL (0.0-1.1) Eosinophils # (Auto) 0.2 x10^3/uL (0.0-0.7) Basophils # (Auto) 0.0 x10^3/uL (0.0-0.2) Segmented Neutrophils % 43 % (35-66) Band Neutrophils % 1 % (0-9) Lymphocytes % 41 % (24-48) Monocytes % 6 % (0-10) Eosinophils % 7 % (0-5) Basophils % 2 % (0-3) Platelet Estimate Decreased (ADEQUATE) Polychromasia Slight Anisocytosis Slight Macrocytosis Slight Prothrombin Time 15.7 SEC (11.7-14.0) Prothromb Time International Ratio 1.3 (0.8-1.1) Sodium Level 145 mmol/L (136-145) Potassium Level 4.1 mmol/L (3.5-5.1) Chloride Level 112 mmol/L (98-107) Carbon Dioxide Level 24 mmol/L (21-32) Anion Gap 9 (6-14) Blood Urea Nitrogen 22 mg/dL (7-20) Creatinine 1.5 mg/dL (0.6-1.0) Estimated GFR (Cockcroft-Gault) 33.9 BUN/Creatinine Ratio 15 (6-20) Glucose Level 82 mg/dL (70-99) Calcium Level 8.0 mg/dL (8.5-10.1) Iron Level 28 ug/dL (50-170) Total Iron Binding Capacity 282 ug/dL (250-450) Iron Saturation 10 % (15-34) Ferritin 94 ng/mL (8-252) Total Bilirubin 0.6 mg/dL (0.2-1.0) Aspartate Amino Transf (AST/SGOT) 29 U/L (15-37) Alanine Aminotransferase (ALT/SGPT) 19 U/L (14-59) Alkaline Phosphatase 97 U/L (46-116) Total Protein 5.2 g/dL (6.4-8.2) Albumin 2.3 g/dL (3.4-5.0) Albumin/Globulin Ratio 0.8 (1.0-1.7) Vitamin B12 Level 379 pg/mL (247-911) Test 06/24/20 16:04 Glucose (Fingerstick) 155 mg/dL (70-99) Laboratory Tests Test 06/23/20 21:25 06/24/20 03:30 06/24/20 07:26 06/24/20 10:52 Glucose (Fingerstick) 111 mg/dL (70-99) 68 mg/dL (70-99) 91 mg/dL (70-99) White Blood Count 1.8 x10^3/uL (4.0-11.0) Red Blood Count 2.06 x10^6/uL (3.50-5.40) Hemoglobin 6.7 g/dL (12.0-15.5) Hematocrit 21.8 % (36.0-47.0) Mean Corpuscular Volume 106 fL (79-100) Mean Corpuscular Hemoglobin 33 pg (25-35) Mean Corpuscular Hemoglobin Concent 31 g/dL (31-37) Red Cell Distribution Width 19.0 % (11.5-14.5) Platelet Count 60 x10^3/uL (140-400) Neutrophils (%) (Auto) 39 % (31-73) Lymphocytes (%) (Auto) 43 % (24-48) Monocytes (%) (Auto) 9 % (0-9) Eosinophils (%) (Auto) 9 % (0-3) Basophils (%) (Auto) 2 % (0-3) Neutrophils # (Auto) 0.7 x10^3/uL (1.8-7.7) Lymphocytes # (Auto) 0.8 x10^3/uL (1.0-4.8) Monocytes # (Auto) 0.2 x10^3/uL (0.0-1.1) Eosinophils # (Auto) 0.2 x10^3/uL (0.0-0.7) Basophils # (Auto) 0.0 x10^3/uL (0.0-0.2) Segmented Neutrophils % 43 % (35-66) Band Neutrophils % 1 % (0-9) Lymphocytes % 41 % (24-48) Monocytes % 6 % (0-10) Eosinophils % 7 % (0-5) Basophils % 2 % (0-3) Platelet Estimate Decreased (ADEQUATE) Polychromasia Slight Anisocytosis Slight Macrocytosis Slight Prothrombin Time 15.7 SEC (11.7-14.0) Prothromb Time International Ratio 1.3 (0.8-1.1) Sodium Level 145 mmol/L (136-145) Potassium Level 4.1 mmol/L (3.5-5.1) Chloride Level 112 mmol/L (98-107) Carbon Dioxide Level 24 mmol/L (21-32) Anion Gap 9 (6-14) Blood Urea Nitrogen 22 mg/dL (7-20) Creatinine 1.5 mg/dL (0.6-1.0) Estimated GFR (Cockcroft-Gault) 33.9 BUN/Creatinine Ratio 15 (6-20) Glucose Level 82 mg/dL (70-99) Calcium Level 8.0 mg/dL (8.5-10.1) Iron Level 28 ug/dL (50-170) Total Iron Binding Capacity 282 ug/dL (250-450) Iron Saturation 10 % (15-34) Ferritin 94 ng/mL (8-252) Total Bilirubin 0.6 mg/dL (0.2-1.0) Aspartate Amino Transf (AST/SGOT) 29 U/L (15-37) Alanine Aminotransferase (ALT/SGPT) 19 U/L (14-59) Alkaline Phosphatase 97 U/L (46-116) Total Protein 5.2 g/dL (6.4-8.2) Albumin 2.3 g/dL (3.4-5.0) Albumin/Globulin Ratio 0.8 (1.0-1.7) Vitamin B12 Level 379 pg/mL (247-911) Test 06/24/20 16:04 Glucose (Fingerstick) 155 mg/dL (70-99) Brief Hospital Course Ms. Chavez is a 75 old female who presented with lower GI bleed and pancytopenia. Patient reports intermittent blood in her stools, but since admission she denies any further episodes of bloody stools. Her hemoglobin was low enough to transfuse but patient is a Jewish and refused blood transfusion. Consult placed to GI and hematology. GI with no plans to scope inpatient unless overt bleeding. Patient was recommended to continue oral iron replacement vitamin B12 and folate. Stable to discharge home with primary care. Discharge Information Condition at Discharge: Stable Follow Up: Weeks Disposition/Orders: D/C to Home Scheduled Aspirin (Aspirin) 81 Mg Tab.chew, 1 TAB PO DAILY for Heart Health, #30 Ref 3 (Reported) Entered as Reported by: MONICA MEJIA on 10/17/18 1211 Last Action: Reviewed on 06/23/20 170 by ERIKA ENGLISH RN Cholecalciferol (Vitamin D3) (Vitamin D3) 1,000 Unit Tablet, 3,000 UNIT PO DAILY for Supplement, (Reported) Entered as Reported by: MONICA MEJIA on 10/17/181210 Last Action: Continued on 06/23/201751 by JUDY REYNAGA MD Citalopram Hydrobromide (Citalopram Hbr) 20 Mg Tablet, 1 TAB PO DAILY for , #30 Ref 5 (Reported) Entered as Reported by: ERIKA ENGLISH RN on 06/23/201701 Last Action: Continued on 06/23/201751 by JUDY REYNAGA MD Ferrous Sulfate (Iron) 325 Mg Tablet, 1 TAB PO DAILY for for 30 Days, #30 Ref 0 (Reported) Entered as Reported by: ERIKA ENGLISH RN on 06/23/201701 Last Action: New Order on 06/23/201701 by ERIKA ENGLISH RN Furosemide (Furosemide) 20 Mg Tablet, 1 TAB PO DAILY for , #90 Ref 1 (Reported) Entered as Reported by: ERIKA ENGLISH RN on 06/23/201701 Last Action: New Order on 06/23/201701 by ERIKA ENGLISH RN Insulin Aspart (Novolog Flexpen) 100 Unit/1 Ml Insuln.pen, 10 UNIT SQ TIDBFRMEAL for , (Reported) Entered as Reported by: ERIKA ENGLISH RN on 06/23/201701 Last Action: New Order on 06/23/201701 by ERIKA ENGLISH RN Insulin Degludec (Tresiba Flextouch U-200) 200 Unit/1 Ml Insuln.pen, 30 UNIT SQ HS for , (Reported) Entered as Reported by: ERIKA ENGLISH RN on 06/23/201701 Last Action: Converted on 06/23/201751 by JUDY REYNAGA MD Levothyroxine Sodium (Levothyroxine Sodium) 150 Mcg Tablet, 150 MCG PO DAILYAC for THYROID SUPPLEMENT, #30 Ref 0 (Reported) Entered as Reported by: MONICA MEJIA on 10/17/181210 Last Action: Continued on 06/23/201751 by JUDY REYNAGA MD Linagliptin (Tradjenta) 5 Mg Tablet, 5 MG PO DAILY for TYPE 2 DIABETES, (Reported) Entered as Reported by: MONICA MEJIA on 10/17/181210 Last Action: Reviewed on 06/23/201701 by EIRKA ENGLISH RN Losartan Potassium (Losartan Potassium) 100 Mg Tablet, 100 MG PO DAILY, (Rep orted) Entered as Reported by: ALLEY PRADO on 11/11/14 0833 Last Action: Converted on 06/23/201751 by JUDY REYNAGA MD Pantoprazole Sodium (Protonix) 20 Mg Tablet.dr, 40 MG PO DAILY for GERD, (Reported) Entered as Reported by: MONICA MEJIA on 10/17/181210 Last Action: Reviewed on 06/23/201701 by ERIKA ENGLISH RN Pravastatin Sodium (Pravastatin Sodium) 40 Mg Tablet, 1 TAB PO QHS for High Cholesterol, #90 Ref 1 (Reported) Entered as Reported by: MONICA MEJIA on 10/17/181210 Last Action: Reviewed on 06/23/201701 by ERIKA ENGLISH RN Justicifation of Admission Dx: Justifications for Admission: Justification of Admission Dx: Comment: (Lower GI bleed) Comments: GI bleed CLAUDIA ARDON MD Jun 24, 2020 16:50
--- NOTE | 2020-06-24 17:28 | NUR ---
Patient refused Wound care assessment
--- NOTE | 2020-06-24 18:00 | NUR ---
Pt discharged home with . Discharge instructions reviewed and she verbalized understanding.
--- NOTE | 2020-06-24 18:01 | NUR ---
SW following. Spoke with RN and reviewed chart. Pt from home. Pt admitted with a GI Bleed and Hbg is 6.7. SW informed that pt is Jehovah's Witnesses and will not accept blood transfusion. Pt to discharge home today, self-care. Pt to discharge on room air and oral medications. No further SW needs.
--- NOTE | 2020-06-25 08:59 | PDOC2 ---
CONSULT Date of Consult Date of Consult DATE: 06/24/20 TIME: 13:49 Reason for Consult Reason for Consult: Anemia in a [place] Referring Physician Referring Physician: Dr. Aguilar Identification/Chief Complaint Chief Complaint Generalized weakness Source Source: Chart review, Patient History of Present Illness Reason for Visit: Tatyana Chavez is a 75-year-old female who has been admitted for further evaluation of fatigue secondary to worsening anemia. Patient's medical history is significant for CKD, cirrhosis secondary to nonalcoholic steatohepatitis and associated splenomegaly, COPD, coronary artery disease chronic normocytic anemia. She reports taking iron pills daily and notes that she typically has dark stools. She has occasionally noticed blood in her stool. Patient reports that she is a [place]ri[place] by believes and is therefore unable to accept transfusion of blood products. She is able to receive IV iron infusions and is willing to consider this. She is undecided if she would be able to receive EPO. She has been admitted for further evaluation of anemia. GI consultation has been sought. Patient reports no additional bloody stools after her hospitali zation. She received CT abdomen for further evaluation and this showed cirrhosis with stigmata of portal hypertension including splenomegaly. Patient denies alcohol use. Her initial lab studies showed WBC 2, Hb 7.2, platelets 68, lipase 434 transferrin 242, NA 140, K4.2, BUN 21, CR 1.4, glucose 119. Past Medical History Cardiovascular: CAD, CHF, HTN, Hyperlipidemia Musculoskeletal: Osteoarthritis Renal/: Chronic renal insuff, UTI Endocrine: Diabetes, Hypothyroidism Past Surgical History Past Surgical History: Appendectomy, Cholecystectomy, Tonsillectomy, Hysterectomy, Other (coronary stenting) Family History Family History: No Significant (No GI-related issues.) Social History Quit ALCOHOL: none Drugs: None Lives: with Family Current Medications Current Medications Current Medications Ondansetron HCl (Zofran) 4 mg PRN Q6HRS PRN IVP NAUSEA/VOMITING; Start 06/23/20 at 17:30; Stop 06/24/20 at 18:31; Status DC Morphine Sulfate (Morphine Sulfate) 2 mg PRN Q1HR PRN IV PAIN; Start 06/23/20 at 17:30; Stop 06/24/20 at 18:31; Status DC Acetaminophen (Tylenol) 650 mg PRN Q6HRS PRN PO Headaches, Temp > 101.5F; Start 06/23/20 at 17:30; Stop 06/24/20 at 18:31; Status DC Docusate Sodium (Colace) 100 mg BID PO Last administered on 06/24/20at 09:11; Start 06/23/20 at 21:00; Stop 06/24/20 at 18:31; Status DC Lactulose (Lactulose) 20 gm PRN Q12HR PRN PO CONSTIPATION; Start 06/23/20 at 17:30; Stop 06/24/20 at 18:31; Status DC Pantoprazole Sodium (Protonix) 40 mg 1X ONCE PO Last administered on 06/23/20at 18:30; Start 06/23/20 at 17:30; Stop 06/24/20 at 14:15; Status DC Pantoprazole Sodium (Protonix) 40 mg DAILYAC PO Last administered on 06/24/20at 09:12; Start 06/24/20 at 07:30; Stop 06/24/20 at 18:31; Status DC Vitamin D (Vitamin D3) 3,000 unit DAILY PO Last administered on 06/24/20at 09:11; Start 06/24/20 at 09:00; Stop 06/24/20 at 18:31; Status DC Citalopram Hydrobromide (CeleXA) 20 mg DAILY PO Last administered on 06/24/20at 09:11; Start 06/24/20 at 09:00; Stop 06/24/20 at 18:31; Status DC Levothyroxine Sodium (Synthroid) 150 mcg DAILYAC PO Last administered on 06/24/20at 09:11; Start 06/24/20 at 07:30; Stop 06/24/20 at 18:31; Status DC Insulin Glargine (Lantus Syringe) 30 unit QHS SQ Last administered on 06/23/20at 21:35; Start 06/23/20 at 21:00; Stop 06/24/20 at 18:31; Status DC Losartan Potassium (Cozaar) 100 mg DAILY PO Last administered on 06/24/20at 09:12; Start 06/24/20 at 09:00; Stop 06/24/20 at 18:31; Status DC Albuterol/ Ipratropium (Duoneb) 3 ml RTQID NEB ; Start 06/23/20 at 20:00; Stop 06/24/20 at 18:31; Status DC Cyanocobalamin (Vitamin B-12) 1,000 mcg DAILY PO Last administered on 06/24/20at 15:49; Start 06/24/20 at 15:00; Stop 06/24/20 at 18:31; Status DC Folic Acid (Folic Acid) 1 mg DAILY PO Last administered on 06/24/20at 15:49; Start 06/24/20 at 15:00; Stop 06/24/20 at 18:31; Status DC Ferrous Sulfate (Feosol) 325 mg TIDAC PO Last administered on 06/24/20at 17:00; Start 06/24/20 at 16:30; Stop 06/24/20 at 18:31; Status DC Active Scripts Active Reported Citalopram Hbr (Citalopram Hydrobromide) 20 Mg Tablet 1 Tab PO DAILY Furosemide 20 Mg Tablet 1 Tab PO DAILY Iron (Ferrous Sulfate) 325 Mg Tablet 1 Tab PO DAILY 30 Days Tresiba Flextouch U-200 (Insulin Degludec) 200 Unit/1 Ml Insuln.pen 30 Unit SQ HS Novolog Flexpen (Insulin Aspart) 100 Unit/1 Ml Insuln.pen 10 Unit SQ TIDBFRMEAL Pravastatin Sodium 40 Mg Tablet 1 Tab PO QHS Protonix (Pantoprazole Sodium) 20 Mg Tablet.dr 40 Mg PO DAILY Tradjenta (Linagliptin) 5 Mg Tablet 5 Mg PO DAILY Levothyroxine Sodium 150 Mcg Tablet 150 Mcg PO DAILYAC Vitamin D3 (Cholecalciferol (Vitamin D3)) 1,000 Unit Tablet 3,000 Unit PO DAILY Aspirin 81 Mg Tab.chew 1 Tab PO DAILY Losartan Potassium 100 Mg Tablet 100 Mg PO DAILY Allergies Allergies: Coded Allergies: Sulfa (Sulfonamide Antibiotics) (Verified Allergy, Intermediate, rash, 05/21/19) niacin (Verified Allergy, Intermediate, 05/21/19) ROS General: No: Chills, Night Sweats PSYCHOLOGICAL ROS: No: Anxiety, Behavioral Disorder Eyes: No Blurry vision, No Decreased vision HEENT: No: Heacaches, Visual Changes ALLERGY AND IMMUNOLOGY: No: Nasal Congestion, Post Nasal Drip Hematological and Lymphatic: No: Brusing, Night Sweats ENDOCRINE: No: Malaise/lethargy, Mood Swings Breast: No New/Changing Breast Lumps, No Nipple changes Respiratory: No: Cough, Hemoptysis Cardiovascular: No Chest Pain, No Palpitations Gastrointestinal: Yes Abdominal Pain, Yes Melena, Yes Hematochezia; No Nausea, No Vomiting Genitourinary: No Dysuria Musculoskeletal: No Gait Disturbance, No Joint Pain Neurological: No Behavorial Changes, No Bowel/Bladder ControlChng Skin: No Dry Skin, No Eczema Physical Exam General: Alert, Oriented X3 HEENT: Atraumatic Lungs: Clear to auscultation Heart: Regular rate Abdomen: Normal bowel sounds, Soft Extremities: No clubbing Skin: No rashes Neuro: Normal speech Psych/Mental Status: Mental status NL MUSCULOSKELETAL: No swelling Vitals VITALS Vital Signs Date Time Temp Pulse Resp B/P (MAP) Pulse Ox O2 Delivery O2 Flow Rate FiO2 06/24/20 15:00 97.8 62 17 110/54 (72) 96 Nasal Cannula 2.0 97.8 Labs Labs Laboratory Tests Test 06/23/20 21:25 06/24/20 03:30 06/24/20 07:26 06/24/20 10:52 Glucose (Fingerstick) 111 mg/dL (70-99) 68 mg/dL (70-99) 91 mg/dL (70-99) White Blood Count 1.8 x10^3/uL (4.0-11.0) Red Blood Count 2.06 x10^6/uL (3.50-5.40) Hemoglobin 6.7 g/dL (12.0-15.5) Hematocrit 21.8 % (36.0-47.0) Mean Corpuscular Volume 106 fL (79-100) Mean Corpuscular Hemoglobin 33 pg (25-35) Mean Corpuscular Hemoglobin Concent 31 g/dL (31-37) Red Cell Distribution Width 19.0 % (11.5-14.5) Platelet Count 60 x10^3/uL (140-400) Neutrophils (%) (Auto) 39 % (31-73) Lymphocytes (%) (Auto) 43 % (24-48) Monocytes (%) (Auto) 9 % (0-9) Eosinophils (%) (Auto) 9 % (0-3) Basophils (%) (Auto) 2 % (0-3) Neutrophils # (Auto) 0.7 x10^3/uL (1.8-7.7) Lymphocytes # (Auto) 0.8 x10^3/uL (1.0-4.8) Monocytes # (Auto) 0.2 x10^3/uL (0.0-1.1) Eosinophils # (Auto) 0.2 x10^3/uL (0.0-0.7) Basophils # (Auto) 0.0 x10^3/uL (0.0-0.2) Segmented Neutrophils % 43 % (35-66) Band Neutrophils % 1 % (0-9) Lymphocytes % 41 % (24-48) Monocytes % 6 % (0-10) Eosinophils % 7 % (0-5) Basophils % 2 % (0-3) Platelet Estimate Decreased (ADEQUATE) Polychromasia Slight Anisocytosis Slight Macrocytosis Slight Prothrombin Time 15.7 SEC (11.7-14.0) Prothromb Time International Ratio 1.3 (0.8-1.1) Sodium Level 145 mmol/L (136-145) Potassium Level 4.1 mmol/L (3.5-5.1) Chloride Level 112 mmol/L (98-107) Carbon Dioxide Level 24 mmol/L (21-32) Anion Gap 9 (6-14) Blood Urea Nitrogen 22 mg/dL (7-20) Creatinine 1.5 mg/dL (0.6-1.0) Estimated GFR (Cockcroft-Gault) 33.9 BUN/Creatinine Ratio 15 (6-20) Glucose Level 82 mg/dL (70-99) Calcium Level 8.0 mg/dL (8.5-10.1) Iron Level 28 ug/dL (50-170) Total Iron Binding Capacity 282 ug/dL (250-450) Iron Saturation 10 % (15-34) Ferritin 94 ng/mL (8-252) Total Bilirubin 0.6 mg/dL (0.2-1.0) Aspartate Amino Transf (AST/SGOT) 29 U/L (15-37) Alanine Aminotransferase (ALT/SGPT) 19 U/L (14-59) Alkaline Phosphatase 97 U/L (46-116) Total Protein 5.2 g/dL (6.4-8.2) Albumin 2.3 g/dL (3.4-5.0) Albumin/Globulin Ratio 0.8 (1.0-1.7) Vitamin B12 Level 379 pg/mL (247-911) Test 06/24/20 16:04 Glucose (Fingerstick) 155 mg/dL (70-99) Laboratory Tests Test 06/24/20 10:52 06/24/20 16:04 Glucose (Fingerstick) 91 mg/dL (70-99) 155 mg/dL (70-99) Assessment/Plan Assessment/Plan Assessment: Pancytopenia Cirrhosis secondary to BASS CKD 3 CAD COPD Recommendations: -I suspect that her anemia and pancytopenia are multifactorial: Potential culprits are splenomegaly and splenic sequestration, chronic kidney disease as well as anemia of chronic disease -Her iron studies are more suggestive of anemia of chronic kidney disease/anemia of chronic disease -I would not recommend any additional evaluation for her cytopenias at this time -I discussed with the patient that IV iron infusions can be considered if she continues to have chronic blood loss. Continue oral iron supplementation at this time. -I also discussed the role of CORY (erythropoiesis stimulating agent) with the patient. She is undecided about the use of these agents at this time -We will arrange for outpatient follow-up to see me for further discussion of IV iron and CORY -Follow-up GI recommendations regarding need for endoscopy Madhu Wilkerson MD Medical Oncology/Hematology Ph: [phone] ADILSON WILKERSON MD Jun 25, 2020 08:59
== END 2020-06-24 18:00 | disposition home or self-care (01) | DRG 808 ==
LOC: 6 SOUTH 16:27
PROVIDERS: ADMIT Internal Medicine; ATTEND Internal Medicine
DX: D61.818 Other pancytopenia (principal); G93.41 Metabolic encephalopathy; K92.2 Gastrointestinal hemorrhage, unspecified; I13.0 Hypertensive heart and chronic kidney disease with heart failure and stage 1 through stage 4 chronic kidney disease, or unspecified chronic kidney disease; I50.32 Chronic diastolic (congestive) heart failure; K76.6 Portal hypertension; D62 Acute posthemorrhagic anemia; E03.9 Hypothyroidism, unspecified; E11.22 Type 2 diabetes mellitus with diabetic chronic kidney disease; E78.5 Hyperlipidemia, unspecified; F41.9 Anxiety disorder, unspecified; I25.10 Atherosclerotic heart disease of native coronary artery without angina pectoris; J44.9 Chronic obstructive pulmonary disease, unspecified; K21.9 Gastro-esophageal reflux disease without esophagitis; K74.60 Unspecified cirrhosis of liver; N18.3 Chronic kidney disease, stage 3 (moderate); Z53.1 Procedure and treatment not carried out because of patient's decision for reasons of belief and group pressure; Z86.010 Personal history of colon polyps; Z90.710 Acquired absence of both cervix and uterus; Z95.5 Presence of coronary angioplasty implant and graft; Z99.81 Dependence on supplemental oxygen; M19.90 Unspecified osteoarthritis, unspecified site; Z90.49 Acquired absence of other specified parts of digestive tract; Z88.2 Allergy status to sulfonamides
CPT/HCPCS: 36415; 80053; 82607; 82728; 82962; 83540; 83550; 85007; 85025; 85610; J1815; G0378

== ENCOUNTER 2020-08-18 19:11 | Inpatient (IN) | payer MEDICARE ==
[~2020-08-18] VITALS: Ht 165.1 cm; Wt 89.8 kg
[~2020-08-18 19:11] MED LIST changes: -ALEN70TA6 PO; +ALEN70TA60 PO; +AMLO-186 PO; -AMLO5TAB10 PO; +CITA20TA6 PO; +FERR-36 PO; +INSU100I17 SQ
[2020-08-18] MEDS ORDERED: ACETAMINOPHEN 500 MG TABLET PO PRN (21:30)
[2020-08-18] MEDS ORDERED: MORPHINE SULFATE 2 MG/ML VIAL. IV PRN ×2 (21:30→22:00)
[2020-08-18] MEDS ORDERED: ZOLPIDEM 5 MG TABLET. PO PRN (21:30)
[2020-08-18] MEDS ORDERED: DEXTROSE 50% 25 GM / 50ML DISP.SYRIN. IV PRN (21:45)
[2020-08-18] MEDS ORDERED: MAG HYDROX/ALUMINUM HYD/SIMETH 30 ML ORAL.SUSP PO PRN (22:00)
[2020-08-18] MEDS ORDERED: CALCIUM CARBONATE 500 MG TAB.CHEW PO PRN (22:00)
[2020-08-18] MEDS ORDERED: ACETAMINOPHEN 325 MG TABLET. PO PRN (22:00)
[2020-08-18] MEDS ORDERED: MAGNESIUM HYDROXIDE 2,400 MG/30 ML ORAL.SUSP. PO PRN (22:00)
[2020-08-18] MEDS ORDERED: ONDANSETRON PF 4 MG/2 ML VIAL. IVP PRN (22:00)
[2020-08-18] MEDS: ATORVASTATIN CALCIUM 10 MG TABLET. PO SCH (22:10)
[2020-08-18] MEDS: PANTOPRAZOLE SODIUM IV DRIP 80 MG in IV NORMAL SALINE 100ML 100 ML IV SCH (22:11)
[2020-08-18 23:08] VITALS: BP 125/50
[2020-08-19 03:00] VITALS: BP 106/43
[2020-08-19] MEDS ORDERED: ALEN70TA60 PO (03:25)
[2020-08-19] MEDS: LEVOTHYROXINE 150 MCG TABLET PO SCH (05:59)
[2020-08-19 07:00] VITALS: BP 110/41
[2020-08-19] MEDS ORDERED: FERROUS SULFATE 325 MG TABLET. PO SCH (08:00)
[2020-08-19] MEDS: INSULIN LISPRO 300 UNITS/3 ML VIAL. SQ SCH ×3 (08:00→17:00)
--- NOTE | 2020-08-19 08:03 | PDOC1 ---
History and Physical Date of Admission Date of Admission DATE: 08/19/20 TIME: 08:00 Identification/Chief Complaint Chief Complaint Abdominal pain Source Source: Patient History of Present Illness History of Present Illness Ms Chavez is a 75-year-old female w/ PMHx DM2, Anxiety, Arthritis, CAD s/p stenting, CHF, COPD on chronic O2, Hypertension, hypothyroidism, chronic Renal Disease with complaints of a 2 to 3-week history of right upper and lower quadrant pain along with right flank pain along with right mid back pain stating that she is just felt sick for several weeks. She also c/o general fatigue over the last 6 months as well as recent onset abdominal pain. She states that over the last 6 months she has felt tired without explanation. She gave a stool sample 5 days ago which was found to have blood in it. She is unsure of when the abdominal pain began, but she locates it primarily in the right upper quadrant, left flank, and groin bilaterally. She affirms shortness of breath that is chronic and unchanged, and for which she is on 2 L of oxygen at home. She does note new fine tremor as well as intermittent confusion. Patient denies chest pains, shortness of breath, fever or chills, visual changes, nasal congestion, edema or swelling of her extremities, nausea, vomiting, diarrhea or constipation. Patient denies any problems urinating, denies pressure with urination, denies burning with urination. Patient does complain of right-sided mid back pain, denies pain in her joints, denies skin r ashes. Patient denies headaches, focal weaknesses, sensory changes, swelling of her glands, depressions, anxieties, homicidal or suicidal ideations. Patient denies Covid symptoms, stating that she was tested earlier this month, patient states that she does not wish to be tested today. CT abdomen with cirrhosis with stigmata of portal hypertension including unchanged splenomegaly. New small volume ascites, new wall thickening of the ascending colon is likely related to portal hypertension, severe calcified aortoiliac atherosclerosis, and increased small bilateral pleural effusions. Unchanged cardiomegaly and probable mild interstitial pulmonary edema. Labs significant for WBC 2, Hb 6.7, platelets 72, NA 139, K4, BUN 19, CR 1.6, glucose 87. EKG normal sinus rhythm without ectopy and a rate of 83 bpm, MO interval 0.188, QTc interval 0.454, no STEMI, no ischemia She is made abundantly clear that she is a L[employer] and is religiously opposed to blood transfusions but is amenable to iron transfusions if necessary. Patient was afebrile, vital signs stable, patient was not ambulated during ER stay, patient maintained a 93 to 97% O2 sat, is on 2 L per nasal cannula, discussed case with Dr. San who recommended admission to the hospital telemetry for UTI and hypoxia on exertion. Patient was started on 2 g Rocephin IV. Transferred to [facility] for GI consultation Past Medical History Cardiovascular: CAD, CHF, HTN, Hyperlipidemia Musculoskeletal: Osteoarthritis Renal/: Chronic renal insuff, UTI Endocrine: Diabetes, Hypothyroidism Past Surgical History Past Surgical History: Appendectomy, Cholecystectomy, Tonsillectomy, Hysterectomy, Other Family History Family History: No Significant Social History Smoke: Quit ALCOHOL: none Drugs: None Current Medications Current Medications Current Medications Pantoprazole Sodium 80 mg/ Sodium Chloride 100 ml @ 10 mls/hr Q10H IV Last administered on 08/18/20at 22:11; Start 08/18/20 at 22:00 Acetaminophen (Tylenol) 500 mg PRN Q6HRS PRN PO MILD PAIN / TEMP > 100.3'F; Start 08/18/20 at 21:30 Atorvastatin Calcium (Lipitor) 10 mg QHS PO Last administered on 08/18/20at 22:10; Start 08/18/20 at 21:30 Azithromycin (Zithromax) 250 mg DAILY PO ; Start 08/19/20 at 09:00 Vitamin D (Vitamin D3) 1,000 unit DAILY PO ; Start 08/19/20 at 09:00 Citalopram Hydrobromide (CeleXA) 20 mg DAILY PO ; Start 08/19/20 at 09:00 Ferrous Sulfate (Feosol) 325 mg DAILYWBKFT PO ; Start 08/19/20 at 08:00 Insulin Glargine (Lantus Syringe) 30 unit DAILY SQ ; Start 08/19/20 at 09:00 Levothyroxine Sodium (Synthroid) 150 mcg DAILY06 PO Last administered on 08/19/20at 05:59; Start 08/19/20 at 06:00 Linagliptin (Tradjenta) 5 mg DAILY PO ; Start 08/19/20 at 09:00 Losartan Potassium (Cozaar) 100 mg DAILY PO ; Start 08/19/20 at 09:00 Morphine Sulfate (Morphine Sulfate) 2 mg PRN Q2HR PRN IV PAIN Last administered on 08/19/20at 07:14; Start 08/18/20 at 21:30 Zolpidem Tartrate (Ambien) 5 mg PRN QHS PRN PO INSOMNIA; Start 08/18/20 at 21:30 Levofloxacin/ Dextrose 150 ml @ 100 mls/hr Q48H IV ; Start 08/20/20 at 21:00 Insulin Human Lispro (HumaLOG) 0-7 UNITS TIDWMEALS SQ ; Start 08/19/20 at 08:00 Dextrose (Dextrose 50%-Water Syringe) 12.5 gm PRN Q15MIN PRN IV SEE COMMENTS; Start 08/18/20 at 21:45 Ondansetron HCl (Zofran) 4 mg PRN Q6HRS PRN IVP NAUSEA/VOMITING; Start 08/18/20 at 22:00 Al Hydroxide/Mg Hydroxide (Mylanta Plus Xs) 30 ml PRN Q3HRS PRN PO HEARTBURN / GAS; Start 08/18/20 at 22:00 Calcium Carbonate/ Glycine (Tums) 500 mg PRN Q3HRS PRN PO UPSET STOMACH; Start 08/18/20 at 22:00 Morphine Sulfate (Morphine Sulfate) 2 mg PRN Q1HR PRN IV PAIN; Start 08/18/20 at 22:00 Acetaminophen (Tylenol) 650 mg PRN Q6HRS PRN PO Headaches, Temp > 101.5F; Start 08/18/20 at 22:00 Magnesium Hydroxide (Milk Of Magnesia) 2,400 mg PRN Q12HR PRN PO CONSTIPATION; Start 08/18/20 at 22:00 Active Scripts Active Reported Alendronate Sodium 70 Mg Tablet 1 Tab PO WEEKLY Citalopram Hbr (Citalopram Hydrobromide) 20 Mg Tablet 1 Tab PO DAILY Furosemide 20 Mg Tablet 1 Tab PO DAILY Iron (Ferrous Sulfate) 325 Mg Tablet 1 Tab PO DAILY 30 Days Tresiba Flextouch U-200 (Insulin Degludec) 200 Unit/1 Ml Insuln.pen 30 Unit SQ DAILY Novolog Flexpen (Insulin Aspart) 100 Unit/1 Ml Insuln.pen 10 Unit SQ TIDBFRMEAL Pravastatin Sodium 40 Mg Tablet 10 Mg PO QHS Protonix (Pantoprazole Sodium) 20 Mg Tablet.dr 40 Mg PO DAILY Tradjenta (Linagliptin) 5 Mg Tablet 5 Mg PO DAILY Levothyroxine Sodium 150 Mcg Tablet 150 Mcg PO DAILYAC Vitamin D3 (Cholecalciferol (Vitamin D3)) 1,000 Unit Tablet 3,000 Unit PO DAILY Aspirin 81 Mg Tab.chew 1 Tab PO DAILY Losartan Potassium 100 Mg Tablet 100 Mg PO DAILY Allergies Allergies: Coded Allergies: Sulfa (Sulfonamide Antibiotics) (Verified Allergy, Intermediate, rash, 05/21/19) niacin (Verified Allergy, Intermediate, 05/21/19) ROS General: YES: Fatigue, Malaise; No: Chills, Night Sweats, Appetite, Other PSYCHOLOGICAL ROS: YES: Anxiety; No: Behavioral Disorder, Concentration difficultie, Decreased libido, Depression, Disorientation, Hallucinations, Hostility, Irritablity, Memory difficulties, Mood Swings, Obsessive thoughts, Physical abuse, Sexual abuse, Sleep disturbances, Suicidal ideation, Other Eyes: No Blurry vision, No Decreased vision, No Double vision, No Dry eyes, No Excessive tearing, No Eye Pain, No Itchy Eyes, No Loss of vision, No Photophobia, No Scotomata, No Uses contacts, No Uses glasses, No Other HEENT: No: Heacaches, Visual Changes, Hearing change, Nasal congestion, Nasal discharge, Oral lesions, Sinus pain, Sore Throat, Epistaxis, Sneezing, Snoring, Tinnitus, Vertigo, Vocal changes, Other ALLERGY AND IMMUNOLOGY: No: Hives, Insect Bite Sensitivity, Itchy/Watery Eyes, Nasal Congestion, Post Nasal Drip, Seasonal Allergies, Other Hematological and Lymphatic: YES: Bleeding Problems, Blood Transfusions; No: Blood Clots, Brusing, Night Sweats, Pallor, Swollen Lymph Nodes, Other ENDOCRINE: No: Breast Changes, Galactorrhea, Hair Pattern Changes, Hot Flashes, Malaise/lethargy, Mood Swings, Palpitations, Polydipsia/polyuria, Skin Changes, Temperature Intolerance, Unexpected Weight Changes, Other Breast: No New/Changing Breast Lumps, No Nipple changes, No Nipple discharge, No Other Respiratory: No: Cough, Hemoptysis, Orthopnea, Pleuritic Pain, Shortness of breath, SOB with excertion, Sputum Changes, Stridor, Tachypnea, Wheezing, Other Cardiovascular: No Chest Pain, No Palpitations, No Orthopnea, No Paroxysmal Noc. Dyspnea, No Edema, No Lt Headedness, No Other Gastrointestinal: Yes Nausea, Yes Vomiting; No Abdominal Pain, No Diarrhea, No Constipation, No Melena, No Hematochezia, No Other Genitourinary: YES Dysuria; No Frequency, No Incontinence, No Hematuria, No Retention, No Discharge, No Urgency, No Pain, No Flank Pain, No Other, No , No , No , No , No , No , No Musculoskeletal: No Gait Disturbance, No Joint Pain, No Joint Stiffness, No Joint Swelling, No Muscle Pain, No Muscular Weakness, No Pain In:, No Swelling In:, No Other Neurological: No Behavorial Changes, No Bowel/Bladder ControlChng, No Confusion, No Dizziness, No Gait Disturbance, No Headaches, No Impaired Coord/balance, No Memory Loss, No Numbness/Tingling, No Seizures, No Speech Problems, No Tremors, No Visual Changes, No Weakness, No Other Skin: No Dry Skin, No Eczema, No Hair Changes, No Lumps, No Mole Changes, No Mottling, No Nail Changes, No Pruritus, No Rash, No Skin Lesion Changes, No Other, No Acne Physical Exam General: Alert, Oriented X3, Cooperative, mild distress HEENT: Atraumatic, PERRLA, EOMI, Mucous membr. moist/pink Lungs: Clear to auscultation, Normal air movement Heart: S1S2, RRR, no thrills, no rubs, no gallops, no murmurs Abdomen: Normal bowel sounds, Soft, No hepatosplenomegaly, No masses, Other (diffuse p) Rectal Exam: not examined Extremities: No clubbing, No cyanosis, No edema, Normal pulses, No tenderness/swelling Skin: No rashes, No breakdown, No significant lesion Neuro: Normal gait, Normal speech, Strength at 5/5 X4 ext, Normal tone, Sensation intact, Cranial nerves 3-12 NL, Reflexes 2+ Vitals Vitals Vital Signs Date Time Temp Pulse Resp B/P (MAP) Pulse Ox O2 Delivery O2 Flow Rate FiO2 08/19/20 07:14 18 97 Room Air 08/19/20 03:00 98.4 72 106/43 (64) 98.4 08/18/20 23:08 2.0 Labs Labs Laboratory Tests Test 08/19/20 07:41 Glucose (Fingerstick) 96 mg/dL (70-99) Laboratory Tests Test 08/19/20 07:41 Glucose (Fingerstick) 96 mg/dL (70-99) Images Images CT abdomen and pelvis without contrast: Heart size is normal. No pericardial effusion. Small left pleural effusion. Strandy opacities at dependent portion lungs likely representing atelectasis. Evaluation of solid organs is limited secondary to noncontrast technique. Nodular contour the liver. Pancreas and adrenals are unremarkable. Spleen is enlarged measuring up to 15.4 cm in length. Gallbladder is identified. No perinephric inflammation or hydronephrosis. No renal or ureteral calculi are identified. Bladder is decompressed not well evaluated. Uterus is absent. No abnormal adnexal mass. Large and small bowel are unremarkable. Appendix is not identified. Trace free fluid in the pelvis. No free intra-abdominal air. No obstruction. Abdominal aorta has a normal course and caliber. No enlarged intra-abdominal lymph nodes are identified. No suspicious osseous lesions or acute fractures. IMPRESSION: Cirrhotic morphology of the liver with secondary sequela of portal hypertension including splenomegaly and recanalized umbilical vein. There is trace amount of ascites in the pelvis, which could also be related to portal hypertension, however is nonspecific. Otherwise, no acute process is identified within the abdomen or pelvis. Chest radiograph 08/15/2020 3:19 PM The cardiomediastinal silhouette is within normal limits. Similar perihilar coarse interstitial changes are identified as compared to prior examination. Mild flattening of the diaphragms may be associated with air trapping as may be seen with COPD. Pulmonary emphysematous changes are identified. No new airspace consolidation. No significant pulmonary vascular congestion or pneumothorax. No significant pleural effusions. No significant osseous abnormality is identified. IMPRESSION: COPD changes without acute cardiopulmonary process. Chronic interstitial changes are noted. Superimposed interstitial pneumonitis remains a differential consideration. VTE Prophylaxis Ordered VTE Prophylaxis Devices: Yes VTE Pharmacological Prophylaxi: Yes Assessment/Plan Assessment/Plan A/P: Acute blood loss anemia - will check iron studies. Protonix IV. clear liquid diet, npo after midnight. GI consulted Acute encephalopathy - metabolic with UTI and cirrhosis Cirrhosis - by CT with varices apparent. Patient notes she is not aware of diagnosis though workup has been previously performed. GI consulted. Lactulose ordered. DM2 - insulin sliding scale Anxiety - cont celexa CAD s/p stenting - stable CHF - stable currently,will monitor, diastolic by history COPD on chronic O2 - cont O2, prn nebs Hypertension - cont meds, monitor Hypothyroidism - cont meds Chronic Renal Disease - monitor Lower extremity ulcers - they are painless, have been present for a while Generalized weakness - likely related to anemia, cirrhosis Pancytopenia - will monitor, likely related to cirrhosis, will consult heme/onc COPD - will order home nebulizers Suspected 2018 novel coronavirus infection - test resulted negative FEN - clear liquid diet PPX - SCDs, ppi FULL CODE Dispo - inpatient telemetry for above Justifications for Admission Other Justification GI bleed, pancytopenia JUDY REYNAGA MD Aug 19, 2020 08:02
[2020-08-19 08:07] LABS: BASO % 2 % (0-3); EOS # 0.1 x10^3/uL (0.0-0.7); EOS % 7 % (0-3); LYMPH # 0.6 x10^3/uL (1.0-4.8); LYMPH % 31 % (24-48); MEAN CORPUSCULAR HEMOGLOBIN 34 pg (25-35); MEAN CORPUSCULAR HGB CONC 32 g/dL (31-37); MEAN CORPUSCULAR VOLUME 106 fL (79-100); MONO # 0.2 x10^3/uL (0.0-1.1); MONO % 10 % (0-9); NEUT % 51 % (31-73); PLATELET COUNT 76 x10^3/uL (140-400); RED BLOOD COUNT 1.92 x10^6/uL (3.50-5.40); RED CELL DISTRIBUTION WIDTH 17.1 % (11.5-14.5)
[2020-08-19 08:09] LABS: HEMATOCRIT 20.4 % (36.0-47.0); HEMOGLOBIN 6.5 g/dL (12.0-15.5)
[2020-08-19] MEDS: CHOLECALCIFEROL (VITAMIN D3) 1,000 UNIT TABLET PO SCH (08:30)
[2020-08-19] MEDS: AZITHROMYCIN 250 MG TABLET. PO SCH (08:30)
[2020-08-19] MEDS: LINAGLIPTIN 5 MG TABLET PO SCH (08:30)
[2020-08-19] MEDS: CITALOPRAM 20 MG TABLET. PO SCH (08:30)
[2020-08-19] MEDS: LOSARTAN POTASSIUM 50 MG TABLET. PO SCH (08:30)
[2020-08-19 08:33] LABS: ALBUMIN 2.2 g/dL (3.4-5.0); ALBUMIN/GLOBULIN RATIO 0.8 (1.0-1.7); CALCIUM 7.9 mg/dL (8.5-10.1); CREATININE 1.5 mg/dL (0.6-1.0); GFR 33.9; POTASSIUM 3.8 mmol/L (3.5-5.1); TOTAL BILIRUBIN 0.5 mg/dL (0.2-1.0); TOTAL PROTEIN 5.1 g/dL (6.4-8.2)
[2020-08-19] MEDS: PANTOPRAZOLE SODIUM IV DRIP 80 MG in IV NORMAL SALINE 100ML 100 ML IV SCH (08:33)
[2020-08-19] MEDS: INSULIN GLARGINE SYRINGE. SQ SCH (08:38)
[2020-08-19 08:51] LABS: LACTATE DEHYDROGENASE 177 U/L (81-234)
--- NOTE | 2020-08-19 09:31 | PDOC2 ---
GI CONSULT Date of Service: DATE: 08/19/20 TIME: 09:31 Reason For Consult: anemia, GI bleed HPI: HPI: 75 y/o female sent from [facility] after admitted for a few days there. Noted w/ anemia, +Hemoccult, and UTI (E coli). CT noted cirrhosis, portal hypertension, and trace ascites. Tells me has been feeling unwell for a long time w/ weakness, but more recently w/ nausea and right upper abdominal pain spreading to the left side. Pain is worse after eating and she's concerned she has an ulcer. She denies obvious bleeding. Reports stools look dark due to iron but most recent stool early this morning was more brown. "My blood count keeps dropping and no one knows why." We have seen her in several times in the past for lower abdominal pain, anemia, and blood in stools. H/o pancytopenia, cirrhosis (BASS), GERD (on pantoprazole QD), and alternating bowel habits (constipation improved w/ diet and apparently Pepto-Bismol). EGD and colonoscopy by Dr. Norman in 05/2019 showed <Grade 1 esophageal varices, portal hypertensive gastropathy (no gastric varices), prepyloric angioectasia resembling GAVE, normal duodenum, normal colonic mucosa, transverse colon polyps (tubular adenoma), three sigmoid colon polyps (serrated adenoma, tubular adenoma, hyperplastic), and internal hemorrhoids. S/p cholecystectomy (stones). No pancreas or PUD history. On ASA, also iron BID. No B12 or folate. Declines blood transfusions for hinduism reasons. Had hematology eval here in 06/2020: felt anemia/pancytopenia multifactorial w/ splenomegaly, CKD, ACD. IV iron infusions/chronic iron supplementation discussed, also role of CORY (she was undecided). I'm not sure if she follow-up as outpt. NPO on PPI drip here. Labs this admission show ACD/GRISELDA and low/normal B12, also macrocytosis. PMH: PMH: CAD w/ stents, HTN, HLD, IDDM, hypothyroidism, CKD, pyelonephritis appendectomy, cholecystectomy, hysterectomy FH: Family History: Cancer (brother - lung), Other (father - alcoholism) Social History: Smoke: Quit ALCOHOL: none Drugs: None ROS: GEN: Denies fevers, chills, sweats HEENT: Denies blurred vision, sore throat CV: Denies chest pain RESP: Denies shortness of air, cough GI: Per HPI : Denies hematuria, dysuria ENDO: Denies weight changes NEURO: Denies confusion, dizziness MSK: Denies weakness, joint pain/swelling SKIN: Denies jaundice, pruritus Vitals: Vitals: Vital Signs Date Time Temp Pulse Resp B/P (MAP) Pulse Ox O2 Delivery O2 Flow Rate FiO2 08/19/20 08:00 Nasal Cannula 2.0 08/19/20 07:14 18 97 08/19/20 07:00 98.2 69 110/41 (64) 98.2 Labs: Labs: Laboratory Tests Test 08/18/20 20:40 08/19/20 07:20 08/19/20 07:41 Glucose (Fingerstick) 151 mg/dL (70-99) 96 mg/dL (70-99) White Blood Count 2.0 x10^3/uL (4.0-11.0) Red Blood Count 1.92 x10^6/uL (3.50-5.40) Hemoglobin 6.5 g/dL (12.0-15.5) Hematocrit 20.4 % (36.0-47.0) Mean Corpuscular Volume 106 fL (79-100) Mean Corpuscular Hemoglobin 34 pg (25-35) Mean Corpuscular Hemoglobin Concent 32 g/dL (31-37) Red Cell Distribution Width 17.1 % (11.5-14.5) Platelet Count 76 x10^3/uL (140-400) Neutrophils (%) (Auto) 51 % (31-73) Lymphocytes (%) (Auto) 31 % (24-48) Monocytes (%) (Auto) 10 % (0-9) Eosinophils (%) (Auto) 7 % (0-3) Basophils (%) (Auto) 2 % (0-3) Neutrophils # (Auto) 1.0 x10^3/uL (1.8-7.7) Lymphocytes # (Auto) 0.6 x10^3/uL (1.0-4.8) Monocytes # (Auto) 0.2 x10^3/uL (0.0-1.1) Eosinophils # (Auto) 0.1 x10^3/uL (0.0-0.7) Basophils # (Auto) 0.0 x10^3/uL (0.0-0.2) Sodium Level 142 mmol/L (136-145) Potassium Level 3.8 mmol/L (3.5-5.1) Chloride Level 111 mmol/L (98-107) Carbon Dioxide Level 20 mmol/L (21-32) Anion Gap 11 (6-14) Blood Urea Nitrogen 18 mg/dL (7-20) Creatinine 1.5 mg/dL (0.6-1.0) Estimated GFR (Cockcroft-Gault) 33.9 BUN/Creatinine Ratio 12 (6-20) Glucose Level 97 mg/dL (70-99) Calcium Level 7.9 mg/dL (8.5-10.1) Iron Level 18 ug/dL (50-170) Total Iron Binding Capacity 242 ug/dL (250-450) Iron Saturation 7 % (15-34) Ferritin 32 ng/mL (8-252) Total Bilirubin 0.5 mg/dL (0.2-1.0) Aspartate Amino Transf (AST/SGOT) 27 U/L (15-37) Alanine Aminotransferase (ALT/SGPT) 18 U/L (14-59) Alkaline Phosphatase 100 U/L (46-116) Lactate Dehydrogenase 177 U/L (81-234) Total Protein 5.1 g/dL (6.4-8.2) Albumin 2.2 g/dL (3.4-5.0) Albumin/Globulin Ratio 0.8 (1.0-1.7) Vitamin B12 Level 481 pg/mL (247-911) Allergies: Coded Allergies: Sulfa (Sulfonamide Antibiotics) (Verified Allergy, Intermediate, rash, 05/21/19) niacin (Verified Allergy, Intermediate, 05/21/19) Medications: Current Medications Medications (Trade) Dose Ordered Sig/Daya Route PRN Reason Start Time Stop Time Status Last Admin Dose Admin Pantoprazole Sodium 80 mg/ Sodium Chloride 100 ml @ 10 mls/hr Q10H IV 08/18/20 22:00 08/19/20 08:33 Atorvastatin Calcium (Lipitor) 10 mg QHS PO 08/18/20 21:30 08/18/20 22:10 Levothyroxine Sodium (Synthroid) 150 mcg DAILY06 PO 08/19/20 06:00 08/19/20 05:59 Morphine Sulfate (Morphine Sulfate) 2 mg PRN Q2HR PRN IV PAIN 08/18/20 21:30 08/19/20 07:14 Imaging: Imaging: Per HPI. PE: GEN: NAD HEENT: Atraumatic, PERRL LUNGS: diminished anteriorly, NC 2L HEART: RRR ABD: RUQ to epigastric discomfort, NABS, soft SKIN: No rashes, no jaundice NEURO/PSYCH: A & O 3 A/P: A/P: Upper abdominal pain, nausea Chronic pancytopenia/anemia - on PO iron at home UTI Cirrhosis/BASS, portal hypertension - EGD last year w/ with <Grade 1 varices, portal hypertensive gastropathy, prepyloric angioectasia GERD - on daily PPI CRC screen, h/o adenomatous polyps - UTD (05/2019) Alternating bowel habits Hemorrhoids S/p cholecystectomy CAD, CHF, CKD, DM, chronic back pain -- Anemia is a chronic issue - no obvious bleeding per pt. Probably doesn't need PPI drip. Kept NPO - ?okay to eat - unclear cause of abdominal pain (though doubt ulcer if taking daily PPI). Will d/w Dr. Norman re: any need for additional imaging. ?IV iron CHARLEY-CASEY MAR Aug 19, 2020 09:31
[2020-08-19 11:00] VITALS: BP 105/43
[2020-08-19] MEDS ORDERED: POLYETHYLENE GLYCOL 3350 17 GM PACKET. PO PRN (14:00)
[2020-08-19 17:10] VITALS: BP 111/47
[2020-08-19] MEDS: FERROUS SULFATE 325 MG TABLET. PO SCH ×2 (17:20→20:53)
--- NOTE | 2020-08-19 17:39 | NUR ---
JONATHAN following for discharge planning. Spoke with RN and reviewed chart. Pt from home. Pt on 2l 02, ADA diet. Hgb 6.5, pt refusing transfusion. Pt on IV pain medication. Discharge plan is home, self-care. Addendum: 08/22/20 at 0833 by NI CASTILLO pt discharged home, self-care. No further SW needs
[2020-08-19 19:00] VITALS: BP 101/60
[2020-08-19] MEDS: LACTOBACILLUS RHAMNOSUS GG 1 CAPSULE. PO SCH (20:52)
[2020-08-19] MEDS: ATORVASTATIN CALCIUM 10 MG TABLET. PO SCH (20:53)
[2020-08-19 23:00] VITALS: BP 99/43
[2020-08-20 03:00] VITALS: BP 95/43
[2020-08-20] MEDS: PANTOPRAZOLE 40 MG TABLET.DR. PO SCH (06:43)
[2020-08-20] MEDS: LEVOTHYROXINE 150 MCG TABLET PO SCH (06:43)
[2020-08-20 07:00] VITALS: BP 98/43
[2020-08-20 07:15] LABS: HEMOGLOBIN A1C 4.4 % (4.8-5.6)
[2020-08-20] MEDS: INSULIN LISPRO 300 UNITS/3 ML VIAL. SQ SCH ×3 (08:00→16:34)
--- NOTE | 2020-08-20 08:28 | PDOC ---
[employer] PROGRESS NOTE Date of Service DOS: DATE: 08/20/20 TIME: 08:27 Chief Complaint Chief Complaint A/P: Acute blood loss anemia - will check iron studies. Protonix IV. clear liquid diet, npo after midnight. GI consulted Acute encephalopathy - metabolic with UTI and cirrhosis Cirrhosis - by CT with varices apparent. Patient notes she is not aware of diagnosis though workup has been previously performed. GI consulted. Lactulose ordered. DM2 - insulin sliding scale Anxiety - cont celexa CAD s/p stenting - stable CHF - stable currently,will monitor, diastolic by history COPD on chronic O2 - cont O2, prn nebs Hypertension - cont meds, monitor Hypothyroidism - cont meds Chronic Renal Disease - monitor Lower extremity ulcers - they are painless, have been present for a while Generalized weakness - likely related to anemia, cirrhosis Pancytopenia - will monitor, likely related to cirrhosis, will consult heme/onc COPD - will order home nebulizers Suspected 2019 novel coronavirus infection - test resulted negative FEN - clear liquid diet PPX - SCDs, ppi FULL CODE Dispo - inpatient telemetry for above History of Present Illness History of Present Illness Ms Chavez is a 75-year-old female w/ PMHx DM2, Anxiety, Arthritis, CAD s/p stenting, CHF, COPD on chronic O2, Hypertension, hypothyroidism, chronic Renal Disease with complaints of a 2 to 3-week history of right upper and lower quadrant pain along with right flank pain along with right mid back pain stating that she is just felt sick for several weeks. She also c/o general fatigue over the last 6 months as well as recent onset abdominal pain. She states that over the last 6 months she has felt tired with out explanation. She gave a stool sample 5 days ago which was found to have blood in it. She is unsure of when the abdominal pain began, but she locates it primarily in the right upper quadrant, left flank, and groin bilaterally. She affirms shortness of breath that is chronic and unchanged, and for which she is on 2 L of oxygen at home. She does note new fine tremor as well as intermittent confusion. Patient denies chest pains, shortness of breath, fever or chills, visual changes, nasal congestion, edema or swelling of her extremities, nausea, vomiting, diarrhea or constipation. Patient denies any problems urinating, denies pressure with urination, denies burning with urination. Patient does complain of right-sided mid back pain, denies pain in her joints, denies skin rashes. Patient denies headaches, focal weaknesses, sensory changes, swelling of her glands, depressions, anxieties, homicidal or suicidal ideations. Patient denies Covid symptoms, stating that she was tested earlier this month, patient states that she does not wish to be tested today. CT abdomen with cirrhosis with stigmata of portal hypertension including uncha nged splenomegaly. New small volume ascites, new wall thickening of the ascending colon is likely related to portal hypertension, severe calcified aortoiliac atherosclerosis, and increased small bilateral pleural effusions. Unchanged cardiomegaly and probable mild interstitial pulmonary edema. Labs significant for WBC 2, Hb 6.7, platelets 72, NA 139, K4, BUN 19, CR 1.6, glucose 87. EKG normal sinus rhythm without ectopy and a rate of 83 bpm, [place] interval 0.188, QTc interval 0.454, no STEMI, no ischemia She is made abundantly clear that she is a [employer] and is religiously opposed to blood transfusions but is amenable to iron transfusions if necessary. Patient was afebrile, vital signs stable, patient was not ambulated during ER stay, patient maintained a 93 to 97% O2 sat, is on 2 L per nasal cannula, discussed case with Dr. San who recommended admission to the hospital telemetry for UTI and hypoxia on exertion. Patient was started on 2 g Rocephin IV. Transferred to [facility] for GI consultation Still feeling very weak had multiple bowel movements no blood in the stool. She is amenable to Venofer and erythropoietin stimulation. Vitals/I&O Vitals/I&O: Vital Signs Date Time Temp Pulse Resp B/P (MAP) Pulse Ox O2 Delivery O2 Flow Rate FiO2 08/20/20 07:00 98.2 72 18 98/43 (61) 94 Room Air 98.2 08/20/20 03:00 2.0 I & O 08/19/20 08/19/20 08/20/20 15:00 23:00 07:00 Intake Total 120 ml Balance 120 ml Physical Exam General: Alert, Oriented X3, Cooperative, mild distress Lungs: Clear Abdomen: Normal bowel sounds, Soft, No hepatosplenomegaly, No masses, Other (diffuse p) Extremities: No clubbing, No cyanosis, No edema, Normal pulses, No tendernes s/swelling Skin: No rashes, No breakdown, No significant lesion Labs Labs: Laboratory Tests Test 08/19/20 09:30 08/19/20 12:03 08/19/20 16:58 08/19/20 21:54 Ammonia 19 mcmol/L (11-34) Glucose (Fingerstick) 91 mg/dL (70-99) 89 mg/dL (70-99) 156 mg/dL (70-99) Test 08/20/20 07:20 Glucose (Fingerstick) 105 mg/dL (70-99) Comment Review of Relevant I have reviewed the following items arian (where applicable) has been applied. Medications: Current Medications Medications (Trade) Dose Ordered Sig/Daya Route PRN Reason Start Time Stop Time Status Last Admin Dose Admin Ferrous Sulfate (Feosol) 325 mg TID PO 08/19/20 14:00 08/19/20 20:53 Pantoprazole Sodium (Protonix) 40 mg DAILYAC PO 08/20/20 07:30 08/20/20 06:43 Lactobacillus Rhamnosus (Culturelle) 1 cap BID PO 08/19/20 21:00 08/19/20 20:52 Justifications for Admission Other Justification GI bleed, pancytopenia JUDY REYNAGA MD Aug 20, 2020 08:28
[2020-08-20 08:42] LABS: BASO # 0.1 x10^3/uL (0.0-0.2); BASO % 2 % (0-3); EOS # 0.1 x10^3/uL (0.0-0.7); EOS % 5 % (0-3); HEMATOCRIT 21.9 % (36.0-47.0); LYMPH # 0.9 x10^3/uL (1.0-4.8); LYMPH % 33 % (24-48); MEAN CORPUSCULAR HEMOGLOBIN 34 pg (25-35); MEAN CORPUSCULAR HGB CONC 31 g/dL (31-37); MEAN CORPUSCULAR VOLUME 108 fL (79-100); MONO # 0.2 x10^3/uL (0.0-1.1); MONO % 8 % (0-9); NEUT # 1.5 x10^3/uL (1.8-7.7); NEUT % 52 % (31-73); PLATELET COUNT 90 x10^3/uL (140-400); RED BLOOD COUNT 2.03 x10^6/uL (3.50-5.40); RED CELL DISTRIBUTION WIDTH 16.6 % (11.5-14.5); WHITE BLOOD COUNT 2.8 x10^3/uL (4.0-11.0)
[2020-08-20 08:44] LABS: HEMOGLOBIN 6.8 g/dL (12.0-15.5)
[2020-08-20 08:46] LABS: CALCIUM 8.1 mg/dL (8.5-10.1); CREATININE 1.6 mg/dL (0.6-1.0); GFR 31.5
--- NOTE | 2020-08-20 08:50 | NUR ---
Hgb 6.8 with a.m. labs. Pt will not accept blood transfusion d/t congregational beliefs.
[2020-08-20] MEDS: CHOLECALCIFEROL (VITAMIN D3) 1,000 UNIT TABLET PO SCH (08:52)
[2020-08-20] MEDS: AZITHROMYCIN 250 MG TABLET. PO SCH (08:52)
[2020-08-20] MEDS: LINAGLIPTIN 5 MG TABLET PO SCH (08:52)
[2020-08-20] MEDS: LACTOBACILLUS RHAMNOSUS GG 1 CAPSULE. PO SCH ×2 (08:52→20:34)
[2020-08-20] MEDS: CITALOPRAM 20 MG TABLET. PO SCH (08:53)
[2020-08-20] MEDS: FERROUS SULFATE 325 MG TABLET. PO SCH ×3 (08:53→20:34)
[2020-08-20] MEDS: LOSARTAN POTASSIUM 50 MG TABLET. PO SCH (09:00)
[2020-08-20] MEDS: INSULIN GLARGINE SYRINGE. SQ SCH (09:00)
[2020-08-20 11:21] VITALS: BP 113/50
[2020-08-20 15:00] VITALS: BP 115/57
[2020-08-20 19:00] VITALS: BP 99/46
[2020-08-20] MEDS: ATORVASTATIN CALCIUM 10 MG TABLET. PO SCH (20:34)
[2020-08-20 23:00] VITALS: BP 108/45
[2020-08-21 03:00] VITALS: BP 92/47
[2020-08-21] MEDS: LEVOTHYROXINE 150 MCG TABLET PO SCH (05:54)
[2020-08-21 07:00] VITALS: BP 106/36
[2020-08-21] MEDS: INSULIN LISPRO 300 UNITS/3 ML VIAL. SQ SCH ×3 (08:00→17:00)
[2020-08-21] MEDS: PANTOPRAZOLE 40 MG TABLET.DR. PO SCH (08:37)
[2020-08-21] MEDS: FERROUS SULFATE 325 MG TABLET. PO SCH ×2 (08:37→13:43)
[2020-08-21] MEDS: LACTOBACILLUS RHAMNOSUS GG 1 CAPSULE. PO SCH (08:37)
[2020-08-21] MEDS: CITALOPRAM 20 MG TABLET. PO SCH (08:37)
[2020-08-21] MEDS: CHOLECALCIFEROL (VITAMIN D3) 1,000 UNIT TABLET PO SCH (08:38)
[2020-08-21] MEDS: LINAGLIPTIN 5 MG TABLET PO SCH (08:38)
--- NOTE | 2020-08-21 08:47 | PDOC ---
[employer] PROGRESS NOTE Date of Service DOS: DATE: 08/21/20 TIME: 08:47 Chief Complaint Chief Complaint A/P: Acute blood loss anemia - iron deficient. Protonix IV. clear liquid diet. Venofer x1 400mg and d/c home. Will have outpatient Acute encephalopathy - metabolic with UTI and cirrhosis Cirrhosis - by CT with varices apparent. Patient notes she is not aware of diagnosis though workup has been previously performed. GI consulted. Lactulose ordered. DM2 - insulin sliding scale Anxiety - cont celexa CAD s/p stenting - stable CHF - stable currently,will monitor, diastolic by history COPD on chronic O2 - cont O2, prn nebs Hypertension - cont meds, monitor Hypothyroidism - cont meds Chronic Renal Disease - monitor Lower extremity ulcers - they are painless, have been present for a while Generalized weakness - likely related to anemia, cirrhosis Pancytopenia - will monitor, likely related to cirrhosis, will consult heme/onc COPD - will order home nebulizers Suspected 2019 novel coronavirus infection - test resulted negative FEN - clear liquid diet PPX - SCDs, ppi FULL CODE Dispo - inpatient telemetry for above History of Present Illness History of Present Illness Ms Chavez is a 75-year-old female w/ PMHx DM2, Anxiety, Arthritis, CAD s/p stenting, CHF, COPD on chronic O2, Hypertension, hypothyroidism, chronic Renal Disease with complaints of a 2 to 3-week history of right upper and lower quadrant pain along with right flank pain along with right mid back pain stating that she is just felt sick for several weeks. She also c/o general fatigue over the last 6 months as well as recent onset abdominal pain. She states that over the last 6 months she has felt tired without explanation. She gave a stool sample 5 days ago which was found to have blood in it. She is unsure of when the abdominal pain began, but she locates it primarily in the right upper quadrant, left flank, and groin bilaterally. She affirms shortness of breath that is chronic and unchanged, and for which she is on 2 L of oxygen at home. She does note new fine tremor as well as intermittent confusion. Patient denies chest pains, shortness of breath, fever or chills, visual changes, nasal congestion, edema or swelling of her extremities, nausea, vomiting, diarrhea or constipation. Patient denies any problems urinating, denies pressure with urination, denies burning with urination. Patient does complain of right-sided mid back pain, denies pain in her joints, denies skin rashes. Patient denies headaches, focal weaknesses, sensory changes, swelling of her glands, depressions, anxieties, homicidal or suicidal ideations. Patient denies Covid symptoms, stating that she was tested earlier this month, patient states that she does not wish to be tested today. CT abdomen with cirrhosis with stigmata of portal hypertension including unchanged splenomegaly. New small volume ascites, new wall thickening of the ascending colon is likely related to portal hypertension, severe calcified aortoiliac atherosclerosis, and increased small bilateral pleural effusions. Unchanged cardiomegaly and probable mild interstitial pulmonary edema. Labs significant for WBC 2, Hb 6.7, platelets 72, NA 139, K4, BUN 19, CR 1.6, g lucose 87. EKG normal sinus rhythm without ectopy and a rate of 83 bpm, [place] interval 0.188, QTc interval 0.454, no STEMI, no ischemia She is made abundantly clear that she is a Evangelical and is religiously opposed to blood transfusions but is amenable to iron transfusions if necessary. Patient was afebrile, vital signs stable, patient was not ambulated during ER stay, patient maintained a 93 to 97% O2 sat, is on 2 L per nasal cannula, discussed case with Dr. San who recommended admission to the hospital telemetry for UTI and hypoxia on exertion. Patient was started on 2 g Rocephin IV. Transferred to [facility] for GI consultation 08/20: Still feeling very weak had multiple bowel movements no blood in the stool. She is amenable to Venofer and erythropoietin stimulation. Feeling stronger today. Afebrile. She notes she is on her home O2. D/w her and her daughter that she wishes for iron infusion and discharge with outpatient PT and OT and outpatient referral to heme/onc for EPO. Vitals/I&O Vitals/I&O: Vital Signs Date Time Temp Pulse Resp B/P (MAP) Pulse Ox O2 Delivery O2 Flow Rate FiO2 08/21/20 07:00 98.8 67 18 106/36 (59) 98 Room Air 98.8 08/20/20 20:10 2.0 I & O 08/20/20 08/20/20 08/21/20 15:00 23:00 07:00 Intake Total 400 ml 320 ml 340 ml Balance 400 ml 320 ml 340 ml Physical Exam General: Alert, Oriented X3, Cooperative, mild distress Lungs: Clear Abdomen: Normal bowel sounds, Soft, No hepatosplenomegaly, No masses, Other (diffuse p) Extremities: No clubbing, No cyanosis, No edema, Normal pulses, No tenderness/ swelling Skin: No rashes, No breakdown, No significant lesion Labs Labs: Laboratory Tests Test 08/20/20 10:42 08/20/20 16:11 08/20/20 21:08 08/21/20 08:01 Glucose (Fingerstick) 131 mg/dL (70-99) 104 mg/dL (70-99) 122 mg/dL (70-99) 81 mg/dL (70-99) Comment Review of Relevant I have reviewed the following items arian (where applicable) has been applied. Medications: Current Medications Medications (Trade) Dose Ordered Sig/Daya Route PRN Reason Start Time Stop Time Status Last Admin Dose Admin Levofloxacin/ Dextrose 150 ml @ 100 mls/hr Q48H IV 08/20/20 21:00 08/20/20 20:35 Justifications for Admission Other Justification GI bleed, pancytopenia JUDY REYNAGA MD Aug 21, 2020 08:47
[2020-08-21] MEDS: LOSARTAN POTASSIUM 50 MG TABLET. PO SCH (08:54)
[2020-08-21] MEDS: INSULIN GLARGINE SYRINGE. SQ SCH (09:00)
[2020-08-21 11:00] VITALS: BP 114/48
--- NOTE | 2020-08-21 12:06 | PDOC3 ---
Discharge Summary Visit Information Date of Admission: Aug 18, 2020 Date of Discharge: Aug 21, 2020 Admitting Diagnosis: Acute anemia Final Diagnosis Acute anemia Brief Hospital Course Allergies Allergies Coded Allergies Type Severity Reaction Last Updated Verified Sulfa (Sulfonamide Antibiotics) Allergy Intermediate rash 05/21/19 Yes niacin Allergy Intermediate 05/21/19 Yes Vital Signs Vital Signs Date Time Temp Pulse Resp B/P (MAP) Pulse Ox O2 Delivery O2 Flow Rate FiO2 08/21/20 11:00 98.8 56 18 114/48 (70) 98 Room Air 98.8 08/21/20 08:00 2.0 Lab Results Laboratory Tests Test 08/19/20 16:58 08/19/20 21:54 08/20/20 07:20 08/20/20 08:20 Glucose (Fingerstick) 89 mg/dL (70-99) 156 mg/dL (70-99) 105 mg/dL (70-99) White Blood Count 2.8 x10^3/uL (4.0-11.0) Red Blood Count 2.03 x10^6/uL (3.50-5.40) Hemoglobin 6.8 g/dL (12.0-15.5) Hematocrit 21.9 % (36.0-47.0) Mean Corpuscular Volume 108 fL (79-100) Mean Corpuscular Hemoglobin 34 pg (25-35) Mean Corpuscular Hemoglobin Concent 31 g/dL (31-37) Red Cell Distribution Width 16.6 % (11.5-14.5) Platelet Count 90 x10^3/uL (140-400) Neutrophils (%) (Auto) 52 % (31-73) Lymphocytes (%) (Auto) 33 % (24-48) Monocytes (%) (Auto) 8 % (0-9) Eosinophils (%) (Auto) 5 % (0-3) Basophils (%) (Auto) 2 % (0-3) Neutrophils # (Auto) 1.5 x10^3/uL (1.8-7.7) Lymphocytes # (Auto) 0.9 x10^3/uL (1.0-4.8) Monocytes # (Auto) 0.2 x10^3/uL (0.0-1.1) Eosinophils # (Auto) 0.1 x10^3/uL (0.0-0.7) Basophils # (Auto) 0.1 x10^3/uL (0.0-0.2) Sodium Level 136 mmol/L (136-145) Potassium Level 4.0 mmol/L (3.5-5.1) Chloride Level 108 mmol/L (98-107) Carbon Dioxide Level 20 mmol/L (21-32) Anion Gap 8 (6-14) Blood Urea Nitrogen 19 mg/dL (7-20) Creatinine 1.6 mg/dL (0.6-1.0) Estimated GFR (Cockcroft-Gault) 31.5 Glucose Level 107 mg/dL (70-99) Calcium Level 8.1 mg/dL (8.5-10.1) Test 08/20/20 10:42 08/20/20 16:11 08/20/20 21:08 08/21/20 08:01 Glucose (Fingerstick) 131 mg/dL (70-99) 104 mg/dL (70-99) 122 mg/dL (70-99) 81 mg/dL (70-99) Laboratory Tests Test 08/20/20 16:11 08/20/20 21:08 08/21/20 08:01 Glucose (Fingerstick) 104 mg/dL (70-99) 122 mg/dL (70-99) 81 mg/dL (70-99) Brief Hospital Course Ms Chavez is a 75-year-old female w/ PMHx DM2, Anxiety, Arthritis, CAD s/p stenting, CHF, COPD on chronic O2, Hypertension, hypothyroidism, chronic Renal Disease with complaints of a 2 to 3-week history of right upper and lower quadrant pain along with right flank pain along with right mid back pain stating that she is just felt sick for several weeks. She also c/o general fatigue over the last 6 months as well as recent onset abdominal pain. She states that over the last 6 months she has felt tired without explanation. She gave a stool sample 5 days ago which was found to have blood in it. She is unsure of when the abdominal pain began, but she locates it primarily in the right upper quadrant, left flank, and groin bilaterally. She affirms shortness of breath that is chronic and unchanged, and for which she is on 2 L of oxygen at home. She does note new fine tremor as well as intermittent confusion. Patient denies chest pains, shortness of breath, fever or chills, visual changes, nasal congestion, edema or swelling of her extremities, nausea, vomiting, diarrhea or constipation. Patient denies any problems urinating, denies pressure with urination, denies burning with urination. Patient does complain of right-sided mid back pain, denies pain in her joints, denies skin rashes. Patient denies headaches, focal weaknesses, sensory changes, swelling of her glands, depressions, anxieties, homicidal or suicidal ideations. Patient denies Covid symptoms, stating that she was tested earlier this month, patient states that she does not wish to be tested today. CT abdomen with cirrhosis with stigmata of portal hypertension including unchanged splenomegaly. New small volume ascites, new wall thickening of the ascending colon is likely related to portal hypertension, severe calcified aortoiliac atherosclerosis, and increased small bilateral pleural effusions. Unchanged cardiomegaly and probable mild interstitial pulmonary edema. Labs significant for WBC 2, Hb 6.7, platelets 72, NA 139, K4, BUN 19, CR 1.6, glucose 87. EKG normal sinus rhythm without ectopy and a rate of 83 bpm, AL interval 0.188, QTc interval 0.454, no STEMI, no ischemia She is made abundantly clear that she is a [employer] and is religiously opposed to blood transfusions but is amenable to iron transfusions if necessary. Patient was afebrile, vital signs stable, patient was not ambulated during ER stay, patient maintained a 93 to 97% O2 sat, is on 2 L per nasal cannula, discussed case with Dr. San who recommended admission to the hospital telemetry for UTI and hypoxia on exertion. Patient was started on 2 g Rocephin IV. Transferred to [facility] for GI consultation 08/20: Still feeling very weak had multiple bowel movements no blood in the stool. She is amenable to Venofer and erythropoietin stimulation. Feeling stronger today. Afebrile. She notes she is on her home O2. D/w her and her daughter that she wishes for iron infusion and discharge with outpatient PT and OT and outpatient referral to heme/onc for EPO. Consults: GI Problem list: Acute blood loss anemia - iron deficient. Protonix IV. clear liquid diet. Venofer x1 400mg and d/c home. Will have outpatient Acute encephalopathy - metabolic with UTI and cirrhosis Cirrhosis - by CT with varices apparent. Patient notes she is not aware of diagnosis though workup has been previously performed. GI consulted. Lactulose ordered. DM2 - insulin sliding scale Anxiety - cont celexa CAD s/p stenting - stable CHF - stable currently,will monitor, diastolic by history COPD on chronic O2 - cont O2, prn nebs Hypertension - cont meds, monitor Hypothyroidism - cont meds Chronic Renal Disease - monitor Lower extremity ulcers - they are painless, have been present for a while Generalized weakness - likely related to anemia, cirrhosis Pancytopenia - will monitor, likely related to cirrhosis, will consult heme/onc COPD - will order home nebulizers Suspected 2019 novel coronavirus infection - test resulted negative Greater than 30 minutes spent on d/c home with outpatient therapy Discharge Information Condition at Discharge: Improved Follow Up: Weeks (1) Disposition/Orders: D/C to Home Scheduled Alendronate Sodium (Alendronate Sodium) 70 Mg Tablet, 1 TAB PO WEEKLY for bones/osteoporosis, #4 Ref 3 (Reported) Entered as Reported by: SEKOU BRICENO on 08/19/20324 Last Action: New Order on 08/19/20324 by SEKOU BRICENO Aspirin (Aspirin) 81 Mg Tab.chew, 1 TAB PO DAILY for Heart Health, #30 Ref 3 (Reported) Entered as Reported by: MONICA MEJIA on 10/17/181210 Last Action: Reviewed on 08/19/20324 by SEKOU BRICENO Cholecalciferol (Vitamin D3) (Vitamin D3) 1,000 Unit Tablet, 3,000 UNIT PO DAILY for Supplement, (Reported) Entered as Reported by: MONICA MEJIA on 10/17/181210 Last Action: Reviewed on 08/19/20324 by SEKOU BRICENO Citalopram Hydrobromide (Citalopram Hbr) 20 Mg Tablet, 1 TAB PO DAILY for , #30 Ref 5 (Reported) Entered as Reported by: ERIKA ENGLISH RN on 06/23/201701 Last Action: Reviewed on 08/19/20324 by SEKOU BRICENO Ferrous Sulfate (Iron) 325 Mg Tablet, 1 TAB PO DAILY for for 30 Days, #30 Ref 0 (Reported) Entered as Reported by: ERIKA ENGLISH RN on 06/23/201701 Last Action: Reviewed on 08/19/20324 by SEKOU BRICENO Furosemide (Furosemide) 20 Mg Tablet, 1 TAB PO DAILY for , #90 Ref 1 (Reported) Entered as Reported by: ERIKA ENGLISH RN on 06/23/201701 Last Action: Reviewed on 08/19/20324 by SEKOU BRICENO Insulin Aspart (Novolog Flexpen) 100 Unit/1 Ml Insuln.pen, 10 UNIT SQ TIDBFRMEAL for , (Reported) Entered as Reported by: ERIKA ENGLISH RN on 06/23/201701 Insulin Degludec (Tresiba Flextouch U-200) 200 Unit/1 Ml Insuln.pen, 30 UNIT SQ DAILY for , (Reported) Entered as Reported by: ERIKA ENGLISH RN on 06/23/201701 Last Action: Edited on 08/19/20324 by SEKOU BRICENO Levothyroxine Sodium (Levothyroxine Sodium) 150 Mcg Tablet, 150 MCG PO DAILYAC for THYROID SUPPLEMENT, #30 Ref 0 (Reported) Entered as Reported by: MONICA MEJIA on 10/17/181210 Last Action: Reviewed on 08/19/20324 by SEKOU BRICENO Linagliptin (Tradjenta) 5 Mg Tablet, 5 MG PO DAILY for TYPE 2 DIABETES, (Reported) Entered as Reported by: MONICA MEJIA on 10/17/181210 Last Action: Reviewed on 08/19/20324 by SEKOU BRICENO Losartan Potassium (Losartan Potassium) 100 Mg Tablet, 100 MG PO DAILY, (Reported) Entered as Reported by: ALLEY PRADO on 11/11/14 0833 Last Action: Reviewed on 08/19/20324 by SEKOU BRICENO Pantoprazole Sodium (Protonix) 20 Mg Tablet.dr, 40 MG PO DAILY for GERD, (Reported) Entered as Reported by: MONICA MEJIA on 10/17/181210 Last Action: Reviewed on 08/19/20324 by SEKOU BRICENO Pravastatin Sodium (Pravastatin Sodium) 40 Mg Tablet, 10 MG PO QHS for High Cholesterol, #90 Ref 1 (Reported) Entered as Reported by: MONICA MEJIA on 10/17/181210 Last Action: Edited on 08/19/20 0325 by SEKOU BRICENO Justicifation of Admission Dx: Justifications for Admission: Justification of Admission Dx: Comment: JUDY REYNAGA MD Aug 21, 2020 12:06
[2020-08-21] MEDS ORDERED: IRON SUCROSE COMPLEX 400 MG in IV NORMAL SALINE 250ML 250 ML IV ONE (13:00)
[2020-08-21 15:00] VITALS: BP 103/49
--- NOTE | 2020-08-21 18:21 | NUR ---
pt discharged home with spouse. meds and follow up reviewed. pt v/u. IV removed, cath intact. pt stable upon dc
== END 2020-08-21 18:31 | disposition home or self-care (01) | DRG 432 ==
LOC: 5 NORTH 20:16
PROVIDERS: ADMIT Internal Medicine; ATTEND Internal Medicine
DX: K74.60 Unspecified cirrhosis of liver (principal); G93.41 Metabolic encephalopathy; D62 Acute posthemorrhagic anemia; I13.0 Hypertensive heart and chronic kidney disease with heart failure and stage 1 through stage 4 chronic kidney disease, or unspecified chronic kidney disease; I50.32 Chronic diastolic (congestive) heart failure; I85.10 Secondary esophageal varices without bleeding; K76.6 Portal hypertension; L97.909 Non-pressure chronic ulcer of unspecified part of unspecified lower leg with unspecified severity; N12 Tubulo-interstitial nephritis, not specified as acute or chronic; R18.8 Other ascites; D61.818 Other pancytopenia; B96.20 Unspecified Escherichia coli [E. coli] as the cause of diseases classified elsewhere; D50.9 Iron deficiency anemia, unspecified; D75.89 Other specified diseases of blood and blood-forming organs; E03.9 Hypothyroidism, unspecified; E11.22 Type 2 diabetes mellitus with diabetic chronic kidney disease; E78.5 Hyperlipidemia, unspecified; F41.9 Anxiety disorder, unspecified; I25.10 Atherosclerotic heart disease of native coronary artery without angina pectoris; I70.8 Atherosclerosis of other arteries; J44.9 Chronic obstructive pulmonary disease, unspecified; K31.89 Other diseases of stomach and duodenum; K75.81 Nonalcoholic steatohepatitis (NASH); N18.9 Chronic kidney disease, unspecified; Z79.4 Long term (current) use of insulin; Z80.9 Family history of malignant neoplasm, unspecified; Z90.49 Acquired absence of other specified parts of digestive tract; Z90.710 Acquired absence of both cervix and uterus; Z95.5 Presence of coronary angioplasty implant and graft; Z99.81 Dependence on supplemental oxygen; K21.9 Gastro-esophageal reflux disease without esophagitis; M19.90 Unspecified osteoarthritis, unspecified site; Z20.828 Contact with and (suspected) exposure to other viral communicable diseases
CPT/HCPCS: 36415; 80048; 80053; 82140; 82607; 82728; 82962; 83010; 83036; 83540; 83550; 83615; 85025; C9113; J1756; J1815; J1956; J2270; J2405; J7050; 97116-GP; 97530-GP; G0378; J7030

== ENCOUNTER → 2020-09-05 | Outpatient (CLI) | payer MEDICARE ==
[2020-08-21 15:00] VITALS: BP 103/49
[2020-09-05 13:49] LABS: BASO # 0.1 x10^3/uL (0.0-0.2); BASO % 2 % (0-3); EOS # 0.3 x10^3/uL (0.0-0.7); EOS % 8 % (0-3); HEMATOCRIT 21.2 % (36.0-47.0); LYMPH # 1.1 x10^3/uL (1.0-4.8); LYMPH % 27 % (24-48); MEAN CORPUSCULAR HEMOGLOBIN 34 pg (25-35); MEAN CORPUSCULAR HGB CONC 30 g/dL (31-37); MEAN CORPUSCULAR VOLUME 114 fL (79-100); MONO # 0.2 x10^3/uL (0.0-1.1); MONO % 5 % (0-9); NEUT # 2.4 x10^3/uL (1.8-7.7); NEUT % 58 % (31-73); PLATELET COUNT 82 x10^3/uL (140-400); RED BLOOD COUNT 1.87 x10^6/uL (3.50-5.40); RED CELL DISTRIBUTION WIDTH 18.4 % (11.5-14.5); WHITE BLOOD COUNT 4.1 x10^3/uL (4.0-11.0)
[2020-09-05 13:54] LABS: HEMOGLOBIN 6.4 g/dL (12.0-15.5)
[2020-09-05 14:02] LABS: ALBUMIN 2.2 g/dL (3.4-5.0); ALBUMIN/GLOBULIN RATIO 0.7 (1.0-1.7); CALCIUM 8.7 mg/dL (8.5-10.1); CREATININE 13.2 mg/dL (0.6-1.0); GFR 2.8; POTASSIUM 5.4 mmol/L (3.5-5.1); TOTAL BILIRUBIN 0.5 mg/dL (0.2-1.0); TOTAL PROTEIN 5.2 g/dL (6.4-8.2)
[2020-09-05 19:18] LABS: PLT ESTIMATE DECREASED (ADEQUATE)
[2020-09-05 19:19] LABS: ANISOCYTOSIS SLIGHT; OVALOCYTES MOD; POIKILOCYTOSIS SLIGHT; SCHISTOCYTES OCC; TEAR DROP CELLS FEW
== END ==
LOC: ONCLAB 13:22
PROVIDERS: ATTEND Internal Medicine Hematology & Oncology
DX: D50.0 Iron deficiency anemia secondary to blood loss (chronic) (principal); D64.9 Anemia, unspecified
CPT/HCPCS: 36415; 80053; 82525; 82668; 82728; 82746; 83540; 83550; 85025